=== PATIENT | female | born 1970 | race Caucasian/White ===

== ENCOUNTER 2018-12-27 14:19 | Inpatient (IN) | payer SELFPAY ==
--- NOTE | 2018-12-27 14:54 | CT ---
CT BRAIN WITHOUT CONTRAST: HISTORY: Level I stroke. Blurred vision. Seizure. Left-sided facial droop. FINDINGS: There is a focal area of decreased attenuation in the right frontal lobe. No evidence of hemorrhage, midline shift or abnormal extraaxial fluid collection is seen. The ventricular size is appropriate an d the basilar cisterns are patent. The bony calvarium is intact. The visualized paranasal sinuses and mastoid air cells are well aerated. IMPRESSION: Focal hypodensity in the right frontal lobe. This likely represents a mass, less likely infarct. Furt her evaluation with a contrast enhanced MRI is recommended. Discussed over the telephone with ER physician, Dr. Trent, at 2:36 p.m. CODE CR POS: OFF
[2018-12-27 14:57] LABS: #Basophils 0.1 thou/uL (0.0-0.2); #Eosinphils 0.1 thou/uL (0.0-0.7); #Monocytes 0.7 thou/uL (0.11-0.59); #Neutrophils 6.6 thou/uL (1.40-6.50); %Basophils 0.6 % (0.0-1.0); %Lymphocytes 21.2 % (21.0-51.0); %Monocytes 6.9 % (0.0-10.0); %Neutrophils 70.3 % (42.0-75.0); Hemoglobin 13.2 g/dL (12.0-16.0); Mean Corpuscular HGB CONC 33.6 g/dL (32.0-36.0); Mean Corpuscular Hemoglobin 31.8 pg (27.0-31.0); Mean Corpuscular Volume 94.5 fL (78.0-98.0); Platelet Count 315 thou/uL (130-400); RBC Distribution Width 11.3 % (11.5-14.5); Red Blood Cell (RBC) Count 4.14 mill/uL (4.20-5.40); White Blood Cell (WBC) Count 9.4 thou/uL (4.8-10.8)
[2018-12-27] MEDS ORDERED: Dexamethasone 10 MG/ML VIAL ONE (15:02)
[2018-12-27] MEDS ORDERED: levETIRAcetam 500 MG/100 ML PREMIX BAG ONE (15:02)
[2018-12-27 15:03] LABS: PTT 27.6 SEC (22.9-36.1); Prothrombin Time 12.6 SEC (12.0-14.7)
[2018-12-27 15:04] LABS: INR-International Normal Ratio 0.9
[2018-12-27] MEDS ORDERED: levETIRAcetam In NaCl (Iso-Os) 1,000 MG in Premix Bag 1 BAG IVPB SCH (15:15)
[2018-12-27 15:18] LABS: ALT (SGPT) 11 U/L (8-55); AST (SGOT) 12 U/L (5-34); Albumin 4.5 g/dL (3.5-5.0); Alkaline Phosphatase 57 U/L (40-110); Anion Gap 14 mmol/L (10-20); BUN (Urea Nitrogen) 13 mg/dL (7.0-18.7); Bilirubin, Total 0.5 mg/dL (0.2-1.2); CK (CPK) 57 U/L (29-168); Calc. Creatinine Clearance 0 mL/min (70-130); Calcium 9.9 mg/dL (7.8-10.44); Carbon Dioxide 26 mmol/L (22-29); Chloride 103 mmol/L (98-107); Estimated GFR-MDRD 81; Globulin 2.7 g/dL (2.4-3.5); Glucose 101 mg/dL (70-105); Potassium 3.9 mmol/L (3.5-5.1); Protein, Total 7.2 g/dL (6.0-8.3); Sodium 139 mmol/L (136-145)
[2018-12-27] MEDS ORDERED: Ondansetron ODT 4 MG TAB PO PRN (15:46)
[2018-12-27] MEDS ORDERED: Lorazepam 2 MG/ML VIAL SLOW IVP PRN (15:46)
[2018-12-27] MEDS ORDERED: Zolpidem Tartrate 5 MG TAB PO PRN (15:46)
[2018-12-27] MEDS ORDERED: HYDROcodone/Acetaminophen 5/325 mg Tablet PO PRN (15:46)
--- NOTE | 2018-12-27 16:45 | MRI ---
BRAIN MRI WITH AND WITHOUT CONTRAST: HISTORY: Seizure-like activity this morning. Patient hit head on desk. COMPARISON: None. CORRELATION: Noncontrast head CT 12/27/2018. FINDINGS: Calvarium has a normal T1 marrow signal intensity. Midline brain parenchymal structures are unremarka ble. No evidence of hemorrhage on the axial gradient echo sequence. There is a T1 hypointense, mixed T2 and FLAIR hyperintense lesion involving the right frontal cortex extending into the subcortical and deep white matter. There is also evidence of FLAIR and T2 hyperintensity along the right nair radiata and right centrum semiovale. There is associated sulcal effacement. No significant mass effect or midline shift. This lesion measures 4.2 cm anterior posterior by 2.9 cm mediolateral by 3.6 cm cranial caudal. This lesion is intra-axial. There is no ev idence of associated enhancement or restricted diffusion. A low-grade neoplasm/cystic mass is favored. Absence of enhancement and restricted diffusion decreased the possibility of a high-grade ne oplasm, infarct and abscess. No additional significant T2 or FLAIR white matter hyperintensities. The left cerebrum demonstrates p reservation of cortical paiz-white matter differentiation. Central arterial flow is maintained. No restricted diffusion. Mild mucosal disease of paranasal sinuses. Adequate mastoid air cell aeration. No pathologic enhancement the brain parenchyma. In the right extra-axial space, near the vertex there is a extra-axial enhancing focus adjacent to th e right parietal lobe measuring 0.7 x 0.8 x 0.6 cm. A small meningioma is favored. No significant changes of the adjacent brain parenchyma. IMPRESSION: Abnormal signal intensity involving the right frontal lobe secondary to an intra-axial process. There is mass effect and sulcal effacement of the right frontal lobe. No significant midline shift or herniation. Absent restricted diffusion. Absent enhancement. Low-grade neoplasm/cystic mass is a cons ideration. High-grade neoplasm, abscess or infarct are less favored given the absence of restricted diffusion and enhancement. Consider neurosurgical consultation. NICK T
--- NOTE | 2018-12-27 16:47 | HP ---
PRIMARY CARE PHYSICIAN: No PCP. HISTORY OF PRESENT ILLNESS: Referred to the [facility] by [facility]. 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 She was talking on the phone, had a student beside her. She suddenly developed pressure in her head, tingling sensation on her left side. Her vision went out. She was unable to talk. She was shaking on the left side. She denies any loss of consciousness. She says it lasted 5 to 10 minutes and she only had a minute or two postictal. Though she was awake and alert. No loss of urine or feces. PAST MEDICAL HISTORY: None. MEDICATIONS: None. ALLERGIES: NONE. PAST SURGICAL HISTORY: None. FAMILY HISTORY: Seizures none. Father had mini strokes. Mother alive and well and at bedside by the way. SOCIAL HISTORY: x20 years. Full code status. Mother, who is at bedside, is a next of kin. She smoked for many years, but quit 1 year ago. She drinks no alcohol. REVIEW OF SYSTEMS: GENERAL: She has had a couple of mild headaches for the past 2 weeks. They were unusual, but did not require medications. No dizziness or fainting. EYES: No double vision, blurred vision, or flashing lights. EAR, NOSE, AND THROAT: No ear pain or drainage. No nasal bleeding. No trouble swallowing. CARDIAC: No pressure, chest pain, orthopnea, or paroxysmal nocturnal dyspnea. RESPIRATIONS: No cough, wheezing, or asthma. GASTROINTESTINAL: No nausea, vomiting, diarrhea, constipation, or abdominal pain. GENITOURINARY: No hematuria or dysuria. MUSCULOSKELETAL: She swells occasionally in her legs, nothing of note. She has no pain in her muscles or joints. NEUROLOGIC: No history of previous psychiatric disease. She does feel subjectively numb in her left foot. PSYCHIATRIC: No history of anxiety or depression. SKIN: No bruising, bleeding, or rash. HEME/LYMPH: No tender or swollen lymph nodes in the axilla, inguinal, or cervical area. PHYSICAL EXAMINATION: GENERAL: The patient is alert, awake, pleasant, cooperative, oriented. VITAL SIGNS: Blood pressure 144/93, pulse 93, respirations 14, temperature 98.4. HEAD, EYES, EARS, NOSE, AND THROAT: Reveals pupils are equal, round, and reactive to light. Extraocular movements intact. Sclerae are white. Tympanic membranes are clear. Nose is clear. Oral mucous membranes are wet. Dental hygiene is good. Tongue protrudes midline. NECK: No jugular venous distention, adenopathy, or thyromegaly. CHEST: Clear to auscultation and percussion. HEART: Regular rate and rhythm. First and second heart sounds are clear. No murmurs or gallops. ABDOMEN: Soft. Bowel sounds are normal. No hepatosplenomegaly. No mass. No rebound. No bruits. EXTREMITIES: No cyanosis, clubbing, or edema. PULSES: Carotid, radial, femoral, and dorsalis pedis pulses full and symmetric. SKIN: Warm and dry without bruises or rashes. HEME/LYMPH: No tender or swollen lymph nodes in the axilla, inguinal, or cervical area. NEUROLOGIC: Cranial nerves 2 through 12 are intact. Deep tendon reflexes, symmetric. Toes downgoing. Strength symmetric. There is subjective numbness in the left foot compared to the right. STUDIES: Brain CT reviewed by me; hypodensity in the right frontoparietal area with a question of midline shift. LABORATORY DATA: Comprehensive metabolic profile normal. CBCs unremarkable. INR 0.9. ADMITTING DIAGNOSES: 1. Acute onset of focal left-sided seizure without loss of consciousness. 2. Right frontoparietal brain mass. PLAN: The patient in process to be loaded with 1 g of IV Keppra. She will be given IV Keppra 500 mg b.i.d. after that. She has been given 10 mg of Decadron in the emergency room. She will be given 4 hours after that. She will be moved to the Stroke Unit on fall and seizure precautions. Dr. Suraj Krishnan, Neurosurgery has been consulted and will see the patient. A chest x-ray has been ordered and EKG has been ordered. We will review when available. Job ID: [id number]
--- NOTE | 2018-12-27 18:30 | RAD ---
XR Chest Pa Lat STANDARD History: Seizure Comparison: None Findings: Lungs are clear. No pneumothorax or effusion. Cardiac silhouette and mediastinal contours a re within normal limits. No acute osseous abnormality. Low-grade calcific tendinosis of the right rotator cuff. Impression: No acute intrathoracic abnormality.
[2018-12-27 18:52] VITALS: BMI 31.1
[2018-12-27] MEDS: Dexamethasone 4 mg/ml Vial SLOW IVP SCH ×2 (20:04→21:32)
[2018-12-27] MEDS: Famotidine/PF 20 mg/2ml Vial SLOW IVP SCH (21:32)
--- NOTE | 2018-12-27 22:58 | CON ---
DATE OF CONSULTATION: 12/27/2018 HISTORY OF PRESENT ILLNESS: The patient is a 48-year-old otherwise healthy female who takes no medications, who presented to the emergency department per EMS after suspected seizure episode while at work. 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 She notified a student beside her, who contacted the principal who called EMS for further evaluation and management. The patient had no LOC or no tonoclonic activity. She reports this lasted approximately 10 minutes before resolving. She is now back to her baseline and has no complaints at this time. She also reports over the last few months, she has had mild headaches, which she felt were due to allergies. She was evaluated with a noncontrast CT on arrival which is notable for a right frontal hypodense lesion. This was evaluated further with MRI of the brain with and without contrast which confirmed a right frontal hypodense lesion which is approximately 4.2 x 2.9 x 3.6 cm. It is not contrast-enhancing. There is minimal vasogenic edema noted. There is mild mass effect. The patient denies any prior history of cancer or family history of cancers. She does not smoke. However, she was a previous smoker years ago. Her GCS is 15. She has remained neurologically intact without additional seizure-like activity during her ER course. In the ER, she was treated with 10 mg of IV Decadron as well as 1 g of IV Keppra. She was admitted by the hospitalist for further evaluation and workup of this new onset mass with Neurosurgical and Neurology consults. PAST MEDICAL HISTORY: Reports she is otherwise healthy. Denies any other medical problems and does not take any medications. ALLERGIES: SHE HAS NO KNOWN DRUG ALLERGIES. PAST SURGICAL HISTORY: She has no prior surgeries. FAMILY HISTORY: Notable for CVA in her father. No other notable family history. SOCIAL HISTORY: She does not currently smoke, but is a previous smoker, quit approximately 1 year ago. She does not drink alcohol or use any drugs. REVIEW OF SYSTEMS: Per HPI. PHYSICAL EXAMINATION: CONSTITUTIONAL: The patient is awake, alert, in no acute distress. Interactive. GCS 15. HEENT: Head, normocephalic and atraumatic. Eyes, PERRLA. Extraocular movements intact. ENT, oral mucosa is pink, intact, and moist. The patient has normal voice. NECK: Nontender to palpation. Free active range of motion. No meningismus or nuchal rigidity. CARDIAC: Regular rate and rhythm. PULMONARY: Symmetric chest expansion. No evidence of dyspnea. MUSCULOSKELETAL: Free active range of motion of all extremities. Symmetric pulses. NEUROLOGIC: Normal cranial nerve exam. A and O x4. No focal neurologic deficits are appreciated. ASSESSMENT AND PLAN: This is an otherwise healthy 48-year-old female with new onset seizure-like activity with a brain MRI, which is notable for newly found right frontal hypodense mass. She has been admitted by the Hospitalist Service. We are recommending continued IV Decadron 4 to 6 with H2 derek for gastrointestinal protection. We will also recommend continued Keppra 500 mg IV b.i.d. and will also await any additional Neurology recommendations for seizure management. With regard to the new mass on MRI, we will discuss this further with Dr. Krishnan, who also reviewed me with the patient. We will further formulate plan of care at that time. At this point, I will give her regular diet. I do not anticipate any acute neurosurgical intervention in the next day. However, she may require surgical intervention and planning in the future. Discussed this plan with Dr. Krishnan, who is in agreement. We will follow closely. Job ID: [id number]
[2018-12-28] MEDS: Dexamethasone 4 mg/ml Vial SLOW IVP SCH ×3 (00:47→08:49)
[2018-12-28] MEDS ORDERED: Melatonin 3 MG TAB PO PRN (01:22)
[2018-12-28] MEDS: Acetaminophen 325 MG TAB PO PRN ×2 (04:43→11:45)
[2018-12-28 05:06] LABS: #Monocytes 0.1 thou/uL (0.11-0.59); #Neutrophils 8.6 thou/uL (1.40-6.50); %Basophils 0.1 % (0.0-1.0); %Eosinophils 0.1 % (0.0-10.0); %Monocytes 0.6 % (0.0-10.0); %Neutrophils 89.2 % (42.0-75.0); Mean Corpuscular HGB CONC 33.5 g/dL (32.0-36.0); Mean Corpuscular Hemoglobin 31.6 pg (27.0-31.0); Mean Corpuscular Volume 94.2 fL (78.0-98.0); Mean Platelet Volume 7.1 fL (7.4-10.4); Platelet Count 345 thou/uL (130-400); RBC Distribution Width 11.4 % (11.5-14.5); White Blood Cell (WBC) Count 9.6 thou/uL (4.8-10.8)
[2018-12-28 05:28] LABS: Anion Gap 16 mmol/L (10-20); BUN (Urea Nitrogen) 17 mg/dL (7.0-18.7); Calc. Creatinine Clearance 85 mL/min (70-130); Calcium 9.7 mg/dL (7.8-10.44); Carbon Dioxide 19 mmol/L (22-29); Chloride 107 mmol/L (98-107); Estimated GFR-MDRD 60; Glucose 228 mg/dL (70-105); Potassium 3.8 mmol/L (3.5-5.1); Sodium 138 mmol/L (136-145)
--- NOTE | 2018-12-28 07:19 | PDOC.HOSPP ---
- Subjective Encounter Date: 12/28/18 Encounter Time: 07:17 Subjective: alert, oriented, no further seizure activity - Objective Vital Signs & Weight: Vital Signs (12 hours) Temp Pulse Resp BP Pulse Ox 12/28/18 04:38 97.9 F 106 H 20 119/81 95 12/28/18 00:51 97.4 F L 111 H 20 105/77 95 Weight Weight 170 lb 9.6 oz Result Diagrams: 12/28/18 04:58 12/28/18 04:58 Additional Labs: Accuchecks 12/27/18 14:48 POC Glucose 92 Hospitalist ROS - Medication Medications: Active Medications Generic Name Dose Route Start Last Admin Trade Name Freq PRN Reason Stop Dose Admin Acetaminophen 650 mg 12/27/18 15:46 12/28/18 04:43 Tylenol PO 650 mg Q4H PRN Administration Headache/Fever/Mild Pain (1-3) Dexamethasone 4 mg 12/27/18 17:00 12/28/18 04:32 Decadron SLOW IVP 4 mg Q4HR MARIANA Administration Famotidine 20 mg 12/27/18 21:00 12/27/18 21:32 Pepcid SLOW IVP 20 mg Q12HR MARIANA Administration Levetiracetam 500 mg/ Device 100 mls @ 200 mls/hr 12/27/18 21:00 12/27/18 21: 32 IVPB 100 mls BID MARIANA Administration Melatonin 3 mg 12/28/18 01:22 12/28/18 01:33 Melatonin PO 3 mg HS PRN Administration Insomnia - Exam General Appearance: awake alert Neck: no JVD Heart: RRR, no murmur Respiratory: CTAB Gastrointestinal: soft, normal bowel sounds Extremities: no edema Neurological: no focal deficits Hosp A/P (1) Seizure Code(s): R56.9 - UNSPECIFIED CONVULSIONS Status: Acute (2) Brain mass Code(s): G93.89 - OTHER SPECIFIED DISORDERS OF BRAIN Status: Acute - Plan cont iv decadron cont iv keppra await NS recommendation re surgery
[2018-12-28] MEDS ORDERED: FLU VACC QS2019-20(6MOS UP)/PF 60 MCG/0.5 ML SYRINGE IM ONE (09:00)
[2018-12-28] MEDS: Famotidine/PF 20 mg/2ml Vial SLOW IVP SCH (10:38)
--- NOTE | 2018-12-28 11:07 | DIS ---
DATE OF ADMISSION: 12/27/2018 DATE OF DISCHARGE: 12/28/2018 PRIMARY CARE PHYSICIAN: No PCP. DISPOSITION: Discharged home. FINAL DIAGNOSES: Acute onset focal motor seizures on the left and right-sided brain mass. DISCHARGE MEDICINES: Keppra 500 mg p.o. b.i.d. ALLERGIES: NONE. PENDING AT TIME OF DISCHARGE: Follow up with Dr. Krishnan for potential neurosurgery. CODE STATUS: Full. DIET: As tolerated. HOSPITAL COURSE: The patient had a focal left-sided seizure with speech difficulty, but no loss of consciousness, and there was true postictal period. She was brought to the emergency room, found to have a right-sided frontal mass approximately 4 cm. She was given Decadron and loaded with IV Keppra 1000 mg. Started on 500 mg IV q.12 and started on Decadron 4 mg q.4, seen by Neurosurgery, who today recommends discharge. Continue Keppra p.o. 500 mg p.o. b.i.d. Discontinue Decadron. To be followed up within one week with Dr. Krishnan to schedule outpatient surgery. The patient is comfortable with this. Questions answered. Prescriptions written. Job ID: [id number]
[2018-12-28 11:46] VITALS: BP 123/79; TEMP 98.3
--- NOTE | 2018-12-28 14:26 | PRG ---
DATE OF SERVICE: 12/28/2018 SUBJECTIVE: The patient is seen and examined. I agree with Lesa Ramírez's evaluation, 12/27/2018. The patient is a 48-year-old woman without past medical history, who presented with the single seizure. She is neurologically intact. CT and MRI scan revealed a right frontal lesion. There is minimal mass effect. It appears to be intractable. There is no meaningful enhancement. 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 It does seems to be a small parietal vertex enhancing lesion that is likely to be a meningioma. IMPRESSION AND PLAN: New seizure and right frontal tumor, presumably low-grade glioma. Ultimately, this will require surgery likely via open resection. I discussed this in detail with the patient. I recommend she will be discharged on Keppra. Decadron can be discontinued. We will arrange for outpatient followup and Surgery to follow. Job ID: [id number]
--- NOTE | 2018-12-29 10:16 | PQF ---
[employer] Utility Bill Collector Crystal Reports Winform ViewerBOYETTE HOLGER DONG VELASQUEZ MD [phone] [id number] CLINICAL DOCUMENTATION CLARIFICATION FORM: POST DISCHARGE Addendum to original discharge summary date: ____ Late entry note date: __ DATE:12/29/2018 ATTN:DONG VELASQUEZ MD Please exercise your independent, professional judgment in responding to the clarification form. Clinical indicators are provided on the bottom of this form for your review Please check appropriate box(s) to clarify if the following diagnosis has been ruled in or ruled out:Glioma [ ] Ruled in diagnosis [ ] Continue to treat [ ] Resolved [ ] Ruled out diagnosis [ ] Cannot rule out diagnosis [ ] Other diagnosis [ x ] Unable to determine no biopsy done, cannot determine cell type without tissue In addition, please specify: Present on Admission (POA): [ ] Yes [ ] No [ ] Unable to determine For continuity of documentation, please document condition throughout progress notes and discharge summary. Thank You. CLINICAL INDICATORS - SIGNS / SYMPTOMS / LABS -Right frontoparietal brain mass-H&P,12/27/2018,Dong Velasquez MD -She was talking on the phone,She suddenly developed pressure in her head, tingling sensation on her left side--H&P,12/27/2018,Dong Velasquez MD -Her vision went out--H&P,12/27/2018,Dong Velasquez MD -Right frontal hypodense mass-Consult,12/28,Lesa Ramírez PA-C -New seizure and right frontal tumor,Presumably low-grade glioma-PN,12/28, Suraj Krishnan MD RISK FACTORS -Acute onset focal motor seizures-Discharge summary,12/28,Dong Velasquez MD She smoked for many years,but Quit 1 year ago-H&P,12/27/2018,Dong Velasquez MD TREATMENTS CT brain-H&P,12/27/2018,Dong Velasquez MD Decadron 10 mg -H&P,12/27/2018,Dong Velasquez MD MRI brain-12/27/2018 We will arrange for outpatient followup and surgery to follow-PN,12/28,Suraj Krishnan MD [employer] Utility Bill Collector Crystal Reports Winform Viewer (This form is maintained as a part of the permanent medical record) 2014 [employer]. All Rights Reserved Riri [email or web address] [phone] MTDD
--- NOTE | 2018-12-31 23:23 | EKG ---
Test Reason : Blood Pressure : / mmHG Vent. Rate : 095 BPM Atrial Rate : 095 BPM P-R Int : 128 ms QRS Dur : 064 ms QT Int : 342 ms P-R-T Axes : -02 -03 040 degrees QTc Int : 429 ms Normal sinus rhythm Low voltage QRS Cannot rule out Anterior infarct , age undetermined Abnormal ECG Confirmed by EARLINE CALVERT DO ([id number]), science editor LOUIS ROMAN ([id number]) on 12/31/2018 11:23:02 PM Referred By: Confirmed By:EARLINE CALVERT DO
== END 2018-12-28 12:35 | disposition home or self-care (01) | DRG 101 ==
LOC: ERS 14:19 → ERHOLD 15:39 → 2SE 18:41
PROVIDERS: ADMIT Internal Medicine; ATTEND Internal Medicine
DX: R56.9 Unspecified convulsions (principal); G93.9 Disorder of brain, unspecified; R40.2413 Glasgow coma scale score 13-15, at hospital admission; Z87.891 Personal history of nicotine dependence
CPT/HCPCS: 36415; 36416; 70450; 70553; 71046; 80048; 80053; 82550; 84484; 85025; 85610; 85730; 93005; 96365; 96375; J1100; J1953; S0028

== ENCOUNTER 2019-01-10 14:49 | Outpatient (CLI) | payer OTHER ==
[2019-01-10 17:10] LABS: Hemoglobin 13.5 g/dL (12.0-16.0); Mean Corpuscular Hemoglobin 31.6 pg (27.0-31.0); Mean Corpuscular Volume 93.1 fL (78.0-98.0); Mean Platelet Volume 7.7 fL (7.4-10.4); Platelet Count 322 thou/uL (130-400); RBC Distribution Width 11.2 % (11.5-14.5); Red Blood Cell (RBC) Count 4.27 mill/uL (4.20-5.40); White Blood Cell (WBC) Count 12.6 thou/uL (4.8-10.8)
[2019-01-10 17:18] LABS: INR-International Normal Ratio 0.9; PTT 27.8 SEC (22.9-36.1); Prothrombin Time 12.4 SEC (12.0-14.7)
== END 2019-01-10 14:50 | disposition home or self-care (01) ==
LOC: LABBT 14:49
PROVIDERS: ATTEND Neurological Surgery
DX: Z01.812 Encounter for preprocedural laboratory examination (principal); C71.1 Malignant neoplasm of frontal lobe
CPT/HCPCS: 85027; 85610; 85730

== ENCOUNTER 2019-01-10 15:30 | Inpatient (IN) | payer OTHER ==
--- NOTE | 2019-01-10 19:10 | HP ---
HISTORY OF PRESENT ILLNESS: Ms. Martinez is a 48-year-old female referred by Dr. Krishnan for evaluation of what appears to be a low grade glioma. She is a former smoker and relatively good health, who has new onset focal motor seizures, speech arrest while at work earlier this week. She was seen at [facility] with MR images suggesting right frontal operculum on that side. Keppra was started. There is no headache. No face twitching. No face weakness. No arm weakness. No change in cognition. REVIEW OF SYSTEMS: A 10-point review of systems has been completed and is negative other than stated in the above HPI. PAST MEDICAL HISTORY: No past medical history. PAST SURGICAL HISTORY: No surgical history. ALLERGIES: NO KNOWN DRUG ALLERGIES. MEDICATIONS: Keppra. PHYSICAL EXAMINATION: CONSTITUTIONAL: The patient is well appearing, well nourished, alert. RESPIRATIONS: Normal work of breathing on room air. NEUROLOGIC: Cranial nerves intact. Cerebellar exam, there is no truncal ataxia. Gait and station are normal. Motor exam, no drift. Very subtle left facial nasolabial fold flattening. Sensory exam, no neglect. IMAGING STUDIES: 90% circumscribed lesion in the inferior right frontal lobe abutting the sylvian fissure and operculum. ASSESSMENT: Malignant neoplasm, frontal lobe. Dr. Mora has offered surgery. He will do a stereotactic brain lab tumor resection. The patient states that she understands her risks and willing to proceed. Job ID: [id number]
[2019-01-13] MEDS ORDERED: Lidocaine 0.5%/Epinephrine 1:200,000 50 ml Vial ONE (06:11)
[2019-01-13] MEDS ORDERED: Bacitracin Zinc Ointment 30 gm TUBE ONE (06:11)
[2019-01-13] MEDS ORDERED: Thrombin 5000 UNITS/5 ML VIAL ONE (06:11)
[2019-01-13] MEDS ORDERED: Sodium Chloride 0.9% 30 ML ONE (06:11)
[2019-01-13] MEDS ORDERED: Lidocaine 2% Jelly 5 ML TUBE ONE (06:18)
[2019-01-13] MEDS ORDERED: Fentanyl 100 MCG/2 ML VIAL ONE (06:18)
[2019-01-13] MEDS ORDERED: Midazolam HCl 2 mg/2 ml Vial ONE (06:52)
[2019-01-13] MEDS ORDERED: Rocuronium Bromide 50 MG/5 ML VIAL ONE (09:28)
[2019-01-13] MEDS ORDERED: Promethazine HCl 25 MG/ML VIAL IM PRN ×2 (12:29→12:34)
[2019-01-13] MEDS ORDERED: Ondansetron HCl/PF 4 MG/2 ML Vial IVP PRN (12:29)
[2019-01-13] MEDS ORDERED: Promethazine HCl 25 MG/ML VIAL SLOW IVP PRN (12:29)
[2019-01-13] MEDS ORDERED: diphenhydrAMINE 50 MG/ML VIAL IVP PRN (12:34)
[2019-01-13] MEDS ORDERED: Cepastat Lozenges 1 LOZ PO PRN (12:34)
[2019-01-13] MEDS ORDERED: Labetalol HCl 100 MG/20 ML VIAL SLOW IVP PRN (12:34)
[2019-01-13] MEDS ORDERED: hydrALAZINE 20 MG/ML VIAL SLOW IVP PRN (12:34)
[2019-01-13] MEDS ORDERED: Promethazine HCl 12.5 MG SUPP PR PRN (12:34)
[2019-01-13] MEDS ORDERED: Morphine 2 MG/ML SYRINGE SLOW IVP PRN (12:34)
[2019-01-13] MEDS ORDERED: Promethazine 25 MG TAB PO PRN (12:34)
[2019-01-13] MEDS ORDERED: Fleet Enema 133 ML BOT PR PRN (12:34)
[2019-01-13 14:22] VITALS: BMI 29.9
[2019-01-13] MEDS: CEFAZOLIN 2 GM in Premix Bag 1 BAG IVPB SCH ×2 (14:30→21:44)
[2019-01-13] MEDS: Sodium Chloride 0.9% 1,000 ML IV SCH (14:32)
[2019-01-13] MEDS: Ondansetron PF 4 MG/2 ML Vial IVP PRN (16:17)
--- NOTE | 2019-01-13 16:39 | OP ---
DATE OF PROCEDURE: 01/13/2019 RITUAL CIRCUMCISER: None. PREOPERATIVE INDICATION: Make diagnosis, prevent neurological deterioration. 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 OPERATIVE PROCEDURES: Right frontotemporal craniotomy for resection of right frontal tumor, BrainLAB stereotactic volumetric intracranial procedure, and operating microscope. PREOPERATIVE MEDICATIONS: Ancef 2 g IV. DRAIN NUMBER: Zero. DRAIN TYPE: None. DESCRIPTION OF PROCEDURE: The patient was brought to the operating room. General endotracheal anesthesia was induced. The patient was positioned supine on the operating table. Head was turned to the left and mobilized with [place]rix pin head of design. Using the BrainLAB protocol, preoperative MRI scan, the BrainLAB mapping system, and surface registration techniques, we created three-dimensional stereotactic space registered at the patient's head. We confirmed the registration when touching instruments to the surface landmarks and the correlation was excellent. We planned a curvilinear incision starting at the root of the zygoma and curving posteriorly over the parietal bone and then anteriorly towards the midline. Under a planned incision, we infused local anesthetic. The scalp was sterilely prepped and draped. We opened with a 10 blade knife. We controlled bleeding with bipolar and monopolar cautery. We folded scalp flap forward at the subperiosteal level and held it in place under fishhooks. We placed a david hole at the root of the zygoma of the frontal keyhole at the superior temporal line on the posterior frontal bone. We elevated the dura off the undersurface of the cranial vault with a [place] 3 dissector and then connected our david holes with a router bit and a footplate. We folded the scalp flap out of the field. We irrigated with bacitracin irrigation. The dura was completely intact. We controlled epidural bleeding with gentle bipolar cautery. We opened the dura in a curvilinear fashion centered at the Pterion. We folded the dura under fishhooks anteriorly. Using our navigation wand, we mapped out the surface presentation of the tumor and thankfully, the difference between tumor and cantwell brain was nicely visualized. The tumor itself had expanded with gyri involved significantly and discolored them. The surface of the tumor was fairly bright white, whereas the surrounding brain was a normal lombardi color. We brought the operating microscope into the field. Under microscopic magnification using microsurgical techniques, we carefully coagulated the nancy around the borders of the tumor. There was one arterial structure emanating from the sylvian fissure traversing the surface of the tumor having coagulated nancy on either side of this. Using sharp scissors, we skeletonized our tumor as well as the traversing vessels. The vessels were kept intact throughout the case. Once we had opened the nancy, we used gentle suction and bipolar cautery to generate a plane around the tumor and at the tumor brain interface, we dissected steadily and carefully. This carried us down bordering sulci. We states a peal. We preserved traversing vasculature. Once we were deeper than the majority of the tumor, brought the navigation wand into the field. This confirmed that we had indeed circumscribed tumor and depth of dissection needed only a few more millimeters before we were at the bottom. Once again with suction cautery, we dissected deeper and then connected our circumferential dissection at the base of the tumor listed now. This was done in multiple fragments between surface vasculature, which does not rotate the vessels, stretch or lacerated them. A small fragment of tumor was sent for frozen section. More fragments were placed in formalin for permanent histopathology. We irrigated the resection cavity. Hemostasis was excellent. We closed the dura in an interrupted fashion and removed the operative microscope. We reattached the skull with titanium plates and screws. We filled the operative field with irrigation. We closed the scalp in anatomical layers. We applied a sterile head wrap. [place] pin headholder was removed from the patient's head and the patient was transferred to the transport cart. This was a clean case, no contamination. Job ID: [id number]
[2019-01-13] MEDS: Morphine 4 MG/ML VIAL SLOW IVP PRN ×2 (16:55→21:45)
[2019-01-13] MEDS ORDERED: Dexamethasone 4 mg/ml Vial ONE (17:15)
[2019-01-13] MEDS ORDERED: Dexamethasone 1 MG TAB PO SCH (18:00)
[2019-01-13] MEDS ORDERED: Dexamethasone 4 mg/ml Vial SLOW IVP SCH (21:00)
[2019-01-13] MEDS ORDERED: Famotidine/PF 20 mg/2ml Vial SLOW IVP SCH (21:00)
[2019-01-13] MEDS: Pantoprazole 40 MG VIAL IVP SCH (21:44)
[2019-01-14] MEDS ORDERED: hydrALAZINE 20 MG/ML VIAL SLOW IVP PRN (01:45)
[2019-01-14] MEDS ORDERED: Labetalol HCl 100 MG/20 ML VIAL SLOW IVP PRN (01:45)
[2019-01-14] MEDS: Sodium Chloride 0.9% 1,000 ML IV SCH ×2 (02:02→15:57)
[2019-01-14] MEDS: Morphine 4 MG/ML VIAL SLOW IVP PRN ×2 (02:03→08:47)
[2019-01-14] MEDS: CEFAZOLIN 2 GM in Premix Bag 1 BAG IVPB SCH (06:01)
[2019-01-14] MEDS: Ondansetron PF 4 MG/2 ML Vial IVP PRN (08:00)
[2019-01-14] MEDS: Pantoprazole 40 MG VIAL IVP SCH ×2 (08:03→21:03)
--- NOTE | 2019-01-14 08:34 | PRG ---
DATE OF SERVICE: 01/14/2019 SUBJECTIVE: The patient is a 48-year-old female, who is postoperative day #1, status post right-sided craniotomy for a low-grade glioma. She has been monitored in CCU overnight. Yesterday, she was complaining of some soreness to the throat; therefore, her medications were switched to IV and she was ordered Cepacol lozenges. She reports this seems to be improving in time. She is tolerating some p.o. She is complaining some numbness and tingling in the tips of the left hand and the left foot. She appears to be mildly weak on this side, 4+ out of 5. Her vitals have been stable, and she has required no p.r.n. blood pressure medication since. She has been afebrile overnight. OBJECTIVE: GENERAL: On exam, this morning the patient is sitting up comfortably in the chair. NEUROLOGIC: She is awake, alert, and oriented x4. She appears slightly weak 4+ out of 5 on the left side. Her incision is clean, dry, and intact. The patient appears to be progressing nicely from her right-sided craniotomy. We will plan to remove her Flores catheter and transferred to the floor. Once her throat is feeling a bit better, I will transition her medications to p.o., but we will leave IV for now as well as continue her IV fluids. Job ID: [id number]
[2019-01-14] MEDS: Dexamethasone 4 mg/ml Vial SLOW IVP SCH ×2 (08:44→21:04)
[2019-01-14] MEDS: HYDROcodone/Acetaminophen 7.5/325 mg Tablet PO PRN ×3 (11:38→21:16)
[2019-01-14] MEDS: Docusate 100 MG CAP PO PRN (17:37)
[2019-01-15] MEDS: Dexamethasone 4 mg/ml Vial SLOW IVP SCH ×2 (09:06→21:41)
[2019-01-15] MEDS: Pantoprazole 40 MG VIAL IVP SCH ×2 (09:07→21:51)
[2019-01-15] MEDS: Sodium Chloride 0.9% 1,000 ML IV SCH ×2 (09:09→17:19)
[2019-01-15] MEDS: Docusate 100 MG CAP PO PRN ×2 (09:22→17:16)
[2019-01-15] MEDS: HYDROcodone/Acetaminophen 7.5/325 mg Tablet PO PRN ×3 (09:24→21:45)
--- NOTE | 2019-01-15 10:11 | PRG ---
DATE OF SERVICE: 01/15/2019 SUBJECTIVE: The patient is postoperative day #2. Yesterday, she was transitioned from the CCU to the med/surg floor. Her Flores was removed. Since that time, she reports she has been comfortable, and her pain has been tolerated well with p.o. medications. She is tolerating a regular diet, and she is voiding appropriately. She was able to work with Physical Therapy yesterday. OBJECTIVE: GENERAL: She is awake, comfortable, in no acute distress. EXTREMITIES: She has free active range of motion of all extremities, but does feel slightly weak on the left side, 4+/5 throughout. She does report some tingling still in the tips of fingers and along the foot. Her incision is clean, dry, and intact. ASSESSMENT AND PLAN: The patient appears to be doing well postoperatively on the floor. She would like to get a shower today and I feel that this is appropriate. I anticipate she will be able to transition to home in the next day or two. Job ID: [id number]
--- NOTE | 2019-01-16 06:24 | PRG ---
DATE OF SERVICE: 01/16/2019 I saw Nadia Martinez in her hospital room this morning. She is 2 days out from craniotomy for right frontal lobe tumor. She had a reasonably good weekend and participated in physical therapy. She is ready for discharge, however. the vitals Have been stable. The neurological exam is quite good. I do not see any pronator drift. The left thumb is working just as well as the right. There is mild, if any, facial asymmetry. Pathology is pending. We will arrange for discharge today. Ms. Martinez will continue on Keppra. We will give her Tylenol No.3 as needed for pain. We went over activity restrictions and wound care. She has a followup appointment on January 25. She will need to follow up with Oncology and Radiation Oncology as well. Job ID: [id number] MTDD
[2019-01-16] MEDS ORDERED: Acetaminophen/Codeine 30-300mg Tablet PO PRN ×2 (06:37)
[2019-01-16] MEDS ORDERED: Polyethylene Glycol 3350 17 GM Packet PO PRN (06:38)
[2019-01-16] MEDS: Sodium Chloride 0.9% 1,000 ML IV SCH (06:48)
[2019-01-16 08:02] VITALS: BP 132/86; TEMP 98.6
[2019-01-16] MEDS ORDERED: levETIRAcetam 500 MG TAB PO SCH (09:00)
--- NOTE | 2019-01-16 10:08 | PRG ---
DATE OF SERVICE: 01/14/2019 I am seeing Ms. Martinez in her hospital room. She is doing quite well and is eating lunch. She has significant right-sided periorbital swelling, which is typical. She has been ambulatory with good success. Continue Decadron taper. Anticipate dismissal in the next 1 to 2 days. Awaiting pathology. Job ID: [id number]
== END 2019-01-16 11:18 | disposition home or self-care (01) | DRG 27 ==
LOC: SURG A 01-13 05:37 → CCU 01-13 13:47 → SURG A 01-14 12:02
PROVIDERS: ADMIT Neurological Surgery; ATTEND Neurological Surgery
PROC: 00B00ZZ Excision of Brain, Open Approach (ICD-10-PCS; principal; 2019-01-13)
PROC: 2W30XYZ Immobilization of Head using Other Device (ICD-10-PCS; 2019-01-13)
DX: C71.1 Malignant neoplasm of frontal lobe (principal); Z87.891 Personal history of nicotine dependence; R56.9 Unspecified convulsions
CPT/HCPCS: 85027; 85610; 85730; C1713; C9113; J0690; J1100; J1953; J2001; J2250; J2270; J2405; J2550; J3010; J3490

== ENCOUNTER 2019-05-30 12:52 | Outpatient (CLI) | payer OTHER ==
--- NOTE | 2019-05-30 14:11 | MRI ---
MRI of thebrain: 05/30/2019 COMPARISON:02/09/2019 HISTORY:Reevaluate brain tumor TECHNIQUE: Multiplanar multisequence MR imaging of thebrain with and without contrast Findings:The diffusion weighted imaging demonstrates no evidence for acute infarction. There is evidence of prior right frontal craniotomy. There is a post surgical cavity lateral to the i nferior posterior aspect of the right frontal lobe with peripheral hemosiderin staining consistent with minimal residual blood products. This small postsurgical cavity measures up to 1.9 cm in AP dime nsion, not significantly changed when compared to the recent prior exam. Subjacent to the postoperative cavity is T2 and FLAIR hyperintensity involving the subcortical, deep, and periventricular white matter in the right frontal region. Measurement is limited secondary to the ill-defined nature of this abnormal signal. The abnormal T2 signal on the basis of intra-axial tu mor and/or vasogenic edema measures approximately 3.7 cm in greatest AP dimension and 3.4 cm in greatest transverse dimension, similar when compared to the prior examination performed 02/09/2019. T he area of white matter FLAIR hyperintensity is slightly more well-defined than on the 02/09/2019 exam. This area of signal abnormality is less conspicuous than on the 12/27/2018 exam. No midline shift or mass effect. No ventricular enlargement. The postcontrast imaging demonstrates dural enhancement within the right frontal region consistent wi th prior surgery/biopsy. No discrete intra-axial focus of abnormal enhancement noted. Arterial flow voids at the axial level of the skull base appear grossly unremarkable on the T2-weight ed imaging. As seen on prior imaging there is an extra-axial enhancing lesion posteriorly near the vertex on the right measuring 7 mm, likely on the basis of a stable meningioma. IMPRESSION:Relatively stable postsurgical change in the right frontal region. Residual T2 and FLAIR h yperintensity deep to the postsurgical site suggest grossly unchanged infiltrative tumor and/or vasogenic edema.
[2019-05-30] MEDS ORDERED: Magnevist 469MG/ML 20 ML VIAL ONE (14:39)
== END 2019-05-30 12:53 | disposition home or self-care (01) ==
LOC: TBSIIMAG 12:52
PROVIDERS: ATTEND Neurological Surgery
DX: D49.6 Neoplasm of unspecified behavior of brain (principal); R60.0 Localized edema; Z98.890 Other specified postprocedural states
CPT/HCPCS: 70553; A9579

== ENCOUNTER 2019-11-24 11:29 | Day surgery (SDC) | payer BC, SELFPAY ==
[2019-11-24] MEDS ORDERED: Acetaminophen 500 MG TAB PO SCH (12:00)
[2019-11-24] MEDS ORDERED: diphenhydrAMINE 25 MG CAP PO SCH (12:00)
[2019-11-24 14:31] VITALS: BP 96/66; TEMP 98.3
== END 2019-11-24 14:31 | disposition home or self-care (01) ==
LOC: ONC/OP 11:29
PROVIDERS: ATTEND Internal Medicine Hematology & Oncology
PROC: 30233R1 Transfusion of Nonautologous Platelets into Peripheral Vein, Percutaneous Approach (ICD-10-PCS; principal; 2019-11-24)
DX: D69.6 Thrombocytopenia, unspecified (principal); D64.9 Anemia, unspecified
CPT/HCPCS: 36415; 36430; 86850; 86900; 86901; P9035; Q0163

== ENCOUNTER 2020-01-03 12:26 | Outpatient (CLI) | payer BC ==
[~2020-01-03 12:26] MED LIST: Magnevist 469MG/ML 20 ML VIAL ONE
--- NOTE | 2020-01-03 14:02 | MRI ---
Exam: Brain MRI with and without contrast HISTORY: Malignant neoplasm of frontal lobe. Slurred speech. COMPARISON: 11/15/2019, 05/30/2019 FINDINGS: Gradient echo sequence: No evidence of acute hemorrhage. Stable hemosiderin deposition at the resecti on site. Calvarium: Stable postoperative changes involving the right calvarium. Midline brain parenchyma: Unremarkable Cerebrum:Stable post treatment change/surgical change involving the right temporal lobe. Redemonstrat ion of T2 and FLAIR hyperintensities involving the right cerebrum. The degree of T2 and FLAIR hyperintensity is slightly diminished. There are no new areas of T2 or FLAIR hyperintensity. With the exception of the surgical site, cortical paiz-white white matter differentiation is preserved. Ventricles: No evidence of hydrocephalus. Sinuses and mastoid air cells: Adequate aeration Diffusion: Central arterial flow is maintained. Absent restricted diffusion. Postcontrast images:There is stable enhancement involving the dura overlying the surgical site. There is no abnormal enhancement with regards to the brain parenchyma. Stable linear enhancement in the extra-axial space, the region of the surgical site is noted likely represents vasculature or scar for mation. Stable meningioma along the right parietal region. IMPRESSION: 1. Stable postoperative changes. 2. No evidence of new pathologic enhancement. 3. No evidence of restricted diffusion to suggest an acute infarct.
== END 2020-01-03 12:27 | disposition home or self-care (01) ==
LOC: MRI 12:26
PROVIDERS: ATTEND Internal Medicine Hematology & Oncology
DX: C71.1 Malignant neoplasm of frontal lobe (principal); R47.81 Slurred speech; Z98.890 Other specified postprocedural states
CPT/HCPCS: 70553; A9579

== ENCOUNTER 2020-02-09 09:31 | Day surgery (SDC) | payer BC ==
[2020-02-09] MEDS ORDERED: diphenhydrAMINE 25 MG CAP PO SCH (10:45)
[2020-02-09] MEDS ORDERED: Acetaminophen 500 MG TAB PO SCH (10:45)
[2020-02-09 13:31] VITALS: BP 110/71; TEMP 98.3
[2020-02-10] MEDS ORDERED: FLU VACC QS2020-21(6MOS UP)/PF 60 MCG/0.5 ML SYRINGE IM ONE (09:00)
== END 2020-02-09 13:32 | disposition home or self-care (01) ==
LOC: ONC/OP 09:31
PROVIDERS: ATTEND Internal Medicine Hematology & Oncology
PROC: 30233N1 Transfusion of Nonautologous Red Blood Cells into Peripheral Vein, Percutaneous Approach (ICD-10-PCS; principal; 2020-02-09)
DX: D64.9 Anemia, unspecified (principal); D69.6 Thrombocytopenia, unspecified
CPT/HCPCS: 36430; 86850; 86900; 86901; P9016; Q0163

== ENCOUNTER 2020-02-13 11:13 | Day surgery (SDC) | payer BC ==
[2020-02-13] MEDS ORDERED: Sodium Chloride 0.9% 20 ML ONE (11:53)
[2020-02-13] MEDS ORDERED: diphenhydrAMINE 25 MG CAP PO SCH (12:00)
[2020-02-13] MEDS ORDERED: Acetaminophen 500 MG TAB PO SCH (12:00)
[2020-02-13 14:10] VITALS: BP 91/54; TEMP 98.2
== END 2020-02-13 14:11 | disposition home or self-care (01) ==
LOC: ONC/OP 11:13
PROVIDERS: ATTEND Internal Medicine Hematology & Oncology
PROC: 30233R1 Transfusion of Nonautologous Platelets into Peripheral Vein, Percutaneous Approach (ICD-10-PCS; principal; 2020-02-13)
DX: D69.6 Thrombocytopenia, unspecified (principal); D64.9 Anemia, unspecified
CPT/HCPCS: 36430; 86850; 86900; 86901; P9035; Q0163

== ENCOUNTER 2020-04-12 12:07 | Inpatient (IN) | payer BC, OTHER ==
[2020-04-12 13:19] LABS: #Basophils 0.1 thou/uL (0.0-0.2); #Lymphocytes 0.3 thou/uL (1.20-3.40); #Monocytes 0.2 thou/uL (0.11-0.59); #Neutrophils 6.3 thou/uL (1.40-6.50); %Basophils 1.3 % (0.0-1.0); %Eosinophils 0.2 % (0.0-10.0); %Lymphocytes 4.6 % (21.0-51.0); %Monocytes 3.2 % (0.0-10.0); %Neutrophils 90.7 % (42.0-75.0); Hemoglobin 9.1 g/dL (12.0-16.0); Mean Corpuscular HGB CONC 33.2 g/dL (32.0-36.0); Mean Corpuscular Hemoglobin 33.5 pg (27.0-31.0); Mean Platelet Volume 11.9 fL (7.4-10.4); Platelet Count 81 thou/uL (130-400); RBC Distribution Width 14.9 % (11.5-14.5); Red Blood Cell (RBC) Count 2.72 mill/uL (4.20-5.40); White Blood Cell (WBC) Count 6.9 thou/uL (4.8-10.8)
[2020-04-12 13:32] LABS: BHCG - Serum Negative (NEGATIVE); Pregs Control Background? CLEAR/WHITE (CLR/WHITE); Pregs Control Bar Appear? YES (CONTROL BAR)
[2020-04-12 13:33] LABS: MDiff Complete? YES; Platelet Morphology Comment Appears Decreased; Polychromasia SLIGHT = 2-3 cells (100X) (0-2/hpf); Tear Drops SLIGHT = 2-5 cells (100X) (0-1/hpf)
--- NOTE | 2020-04-12 13:34 | RAD ---
Exam: Chest one view HISTORY:Weakness. Fall. Astrocytoma. Altered mental status. Comparison: 06/15/2019 FINDINGS: Cardiac silhouette: Normal Aorta: Unremarkable Pulmonary vessels: Normal Costophrenic angles: Clear LUNGS: No masses or consolidation. Pneumothorax: None Osseous abnormalities: None IMPRESSION: No acute cardiopulmonary process.
[2020-04-12 13:41] LABS: ALT (SGPT) 11 U/L (8-55); AST (SGOT) 20 U/L (5-34); Albumin 3.9 g/dL (3.5-5.0); Alkaline Phosphatase 58 U/L (40-110); Anion Gap 22 mmol/L (10-20); BUN (Urea Nitrogen) 12 mg/dL (7.0-18.7); Bilirubin, Total 1.2 mg/dL (0.2-1.2); Calc. Creatinine Clearance 0 mL/min (70-130); Calcium 9.1 mg/dL (7.8-10.44); Carbon Dioxide 23 mmol/L (22-29); Chloride 96 mmol/L (98-107); Globulin 2.6 g/dL (2.4-3.5); Glucose 139 mg/dL (70-105); Potassium 3.1 mmol/L (3.5-5.1); Protein, Total 6.5 g/dL (6.0-8.3); Sodium 138 mmol/L (136-145)
[2020-04-12 14:26] LABS: Bilirubin Large (Negative); Blood, Urine Trace (Negative); Glucose, Urine (Dipstick) Negative (Negative); Ketone, Urine 40 mg/dL (Negative); Leukocyte Trace (Negative); Nitrite Positive (Negative); Protein, Urine (Dipstick) 100 mg/dL (Neg-Trace); pH, Urine 5.5 (5.0-9.0)
--- NOTE | 2020-04-12 14:29 | CT ---
EXAM: CT ABDOMEN AND PELVIS HISTORY: Nausea. Vomiting. Diffuse abdominal pain. Astrocytoma. Multiple falls. COMPARISON: None. Procedure: Multiple contiguous axial images were obtained and a CT of the abdomen and pelvis with IV contrast. C oronal reformats were performed. FINDINGS: Lower Chest: within normal limits. Vessels: Normal caliber aorta. No periaortic fat stranding Heart: Normal heart size. No significant pericardial fluid Abdomen: Portal vein:Patent Gallbladder: No calcified gallstones. Normal caliber wall. Liver: within normal limits. Pancreas: within normal limits. Spleen: within normal limits. Adrenals: within normal limits. Kidneys: Symmetric enhancement. No obstructive uropathy. Peritoneum: No ascites or free air, no fluid collection. Bowel: Limited evaluation due to lack of oral contrast demonstration. No evidence of a small bowel ob struction. Multiple normal caliber small bowel loops. Normal ileocecal junction. Normal caliber appendix. There is mucosal thickening involving the transverse colon and descending colon. Mesentery and Retroperitoneum: No enlarged mesenteric or retroperitoneal lymph nodes. Abdominal Wall: within normal limits. Pelvis: Reproductive Organs: Reproductive organs are unremarkable. Pelvis: No mass, lymphadenopathy, free air or free fluid. Bladder: within normal limits. Bones: within normal limits. IMPRESSION: Mucosal thickening involving the transverse colon and descending colon, compatible with a infectious colitis.
[2020-04-12 14:30] LABS: Clarity Turbid (Clear)
--- NOTE | 2020-04-12 14:30 | CT ---
Exam: CT brain PROVIDED CLINICAL HISTORY: AMS COMPARISON: 12/27/2018 FINDINGS: The ventricular system is normal in size and morphology. No evidence for intracranial hemorrhage or mass effect. The extracranial soft tissues and osseous structures demonstrate no evidence for an acute abnormality. Postoperative changes involving the right frontotemporal skull. Hypodensity adjace nt to the right frontal cortex on images 34, 35 and 36 may reflect CSF but is incompletely characterized in the absence of IV contrast material. IMPRESSION: No evidence for intracranial hemorrhage or mass effect. Assessment for residual or recurrent disease is limited in the absence of IV contrast.
[2020-04-12 14:31] LABS: Specific Gravity, Urine 1.026 (1.002-1.036)
[2020-04-12 14:33] LABS: Bacteria/HPF 2+ HPF (None Seen); Squamous Epithelial Greater than 50 HPF (0-3); WBC/HPF 21-50 HPF (0-3)
[2020-04-12] MEDS ORDERED: Iopamidol-370 76% 500 ML 1 ML ONE (14:58)
[2020-04-12 16:11] LABS: Lactic Acid 1.1 mmol/L (0.5-2.2)
[2020-04-12 16:12] LABS: Bilirubin Negative (Negative); Blood, Urine Negative (Negative); Clarity Clear (Clear); Glucose, Urine (Dipstick) Normal (Negative); Ketone, Urine 40 mg/dL (Negative); Leukocyte Negative Leu/uL (Negative); Nitrite Negative (Negative); Protein, Urine (Dipstick) 20 mg/dL (Neg-Trace); Urobilinogen Normal mg/dL (Less than 2); pH, Urine 6.5 (5.0-9.0)
[2020-04-12 16:16] LABS: Specific Gravity, Urine Greater than 1.060 (1.002-1.036)
[2020-04-12] MEDS ORDERED: Ondansetron PF 4 MG/2 ML Vial ONE (17:28)
[2020-04-12] MEDS ORDERED: Piperacillin/Tazobactam 3.375 GM VIAL ONE (17:28)
[2020-04-12] MEDS ORDERED: Senokot S 8.6-50 MG TAB PO PRN (17:47)
[2020-04-12] MEDS ORDERED: Acetaminophen 325 MG TAB PO PRN (17:47)
--- NOTE | 2020-04-12 19:06 | PDOC.HHP ---
Hospitalist HPI - History of Present Illness Weakness; nausea, vomiting and constipation History of Present Illness: 49 yr old presents to the ED today for feeling weak and has had 2 falls today, 2nd one prompted the ED visit. She reports diffuse abdominal pain, nausea and retching but states she does not vomit much up when she retches. This has been going on for the past several days. She has Zofran at home which she has been taking and has helped with the nausea. She has a history of astrocytoma and underwent a craniotomy in 2019 and started on radiation 6 weeks later. She is currently on Chemotherapy and sees Dr. Beatty. Last chemotherapy was a week ago. She does not have a port. Denies surgery other than the craniotomy. Also has a seizure d/o and is on Keppra. She does not have a PCP. Patient reports a decreased appetite, chronically since December and also has been constipated intermittently for several months. She reports feeling dehydrated lately. In the ED, CT scan results indicates infectious colitis and her initial UA indicated a UTI, however, a subsequent UA sample was negative for nitrates, WBC or leukocysts. A urine culture has been ordered as well as Blood cultures x2. She is thrombocytopenic with platelets at 81. WBC = 6.9, Hbg 9.1, Hct= 27.5 She was started on Zosyn, Zofran and IV fluids in the ED. She states she feels a little better than she did prior to arrival. Hospitalist ROS - Review of Systems Constitutional: reports: weakness Eyes: denies: pain, vision change, conjunctivae inflammation, eyelid inflammation, redness, other ENT: reports: other (dry mucous membranes, chapped lips) Respiratory: denies: cough, dry, shortness of breath, hemoptysis, SOB with excertion, pleuritic pain, sputum, wheezing, other Cardiovascular: denies: chest pain, palpitations, orthopnea, paroxysmal noc. dyspnea, edema, light headedness, other Gastrointestinal: reports: nausea, vomiting, abdominal pain, constipation Genitourinary: denies: dysuria Skin: reports: bruising (Bilateral bruises and abrasions to knees from falling) Neurological: reports: weakness - Medication Medications: Keppra 500mg po BID Zofran 4-8mg po q6h prn Hospitalist History - Past Medical History Cardiac: reports: no pertinent history Pulmonary: reports: no pertinent history [employer]: reports: Seizure, Other (brain tumor) Gastrointestinal: reports: Constipation Heme/Onc: reports: Cancer Musculoskeletal: reports: no pertinent history - Past Surgical History Past Surgical History: reports: Other (craniotomy in 2019) - Family History Family History: reports: no pertinent history - Social History Smoking Status: Never smoker Alcohol: reports: None Drugs: reports: none Living Situation: With Family Activity level: independent ambulation - Exam General Appearance: awake alert Eye: PERRL ENT: normocephalic atraumatic, dry oral mucosa Neck: supple, no JVD Heart: RRR, normal peripheral pulses Respiratory: CTAB, normal chest expansion Gastrointestinal: normal bowel sounds, no guarding, tender to palpation (diffusely) Extremities: no edema Extremities - other findings: Bilateral abrasions with bruising to patellas Neurological: cranial nerve grossly intact Musculoskeletal: generalized weakness Hospitalist Results - Labs Result Diagrams: 04/12/20 13:06 04/12/20 13:06 Lab results: WBC 6.9 thou/uL (4.8-10.8) 04/12/20 13:06 Hgb 9.1 g/dL (12.0-16.0) L 04/12/20 13:06 Hct 27.5 % (36.0-47.0) L 04/12/20 13:06 MCV 101.0 fL (78.0-98.0) H 04/12/20 13:06 Plt Count 81 thou/uL (130-400) L 04/12/20 13:06 Neutrophils % 90.7 % (42.0-75.0) H 04/12/20 13:06 Sodium 138 mmol/L (136-145) 04/12/20 13:06 Potassium 3.1 mmol/L (3.5-5.1) L 04/12/20 13:06 Chloride 96 mmol/L (98-107) L 04/12/20 13:06 Carbon Dioxide 23 mmol/L (22-29) 04/12/20 13:06 BUN 12 mg/dL (7.0-18.7) 04/12/20 13:06 Creatinine 0.83 mg/dL (0.6-1.1) 04/12/20 13:06 Glucose 139 mg/dL (70-105) H 04/12/20 13:06 Lactic Acid 1.1 mmol/L (0.5-2.2) 04/12/20 15:43 Calcium 9.1 mg/dL (7.8-10.44) 04/12/20 13:06 Total Bilirubin 1.2 mg/dL (0.2-1.2) 04/12/20 13:06 AST 20 U/L (5-34) 04/12/20 13:06 ALT 11 U/L (8-55) 04/12/20 13:06 Alkaline Phosphatase 58 U/L (40-110) 04/12/20 13:06 Serum Total Protein 6.5 g/dL (6.0-8.3) 04/12/20 13:06 Albumin 3.9 g/dL (3.5-5.0) 04/12/20 13:06 Urine Ketones 40 mg/dL (Negative) A 04/12/20 15:40 Urine Blood Negative (Negative) 04/12/20 15:40 Urine Nitrite Negative (Negative) 04/12/20 15:40 Ur Leukocyte Esterase Negative Ronit/uL (Negative) 04/12/20 15:40 Urine RBC 4-6 HPF (0-3) A 04/12/20 14:04 Urine WBC 21-50 HPF (0-3) A 04/12/20 14:04 Ur Squamous Epith Cells Greater than 50 HPF (0-3) A 04/12/20 14:04 Urine Bacteria 2+ HPF (None Seen) A 04/12/20 14:04 Hospitalist H&P A/P - Problem (1) Seizure disorder Code(s): G40.909 - EPILEPSY, UNSP, NOT INTRACTABLE, WITHOUT STATUS EPILEPTICUS Status: Chronic (2) Nausea & vomiting Code(s): R11.2 - NAUSEA WITH VOMITING, UNSPECIFIED Status: Acute (3) Constipated Code(s): K59.00 - CONSTIPATION, UNSPECIFIED Status: Chronic (4) Colitis Code(s): K52.9 - NONINFECTIVE GASTROENTERITIS AND COLITIS, UNSPECIFIED Status: Acute (5) Seizure Code(s): R56.9 - UNSPECIFIED CONVULSIONS Status: Chronic - Plan Plan: #Colitis with n/v and constipation IV Fluids at 100ml/hr Zosyn 3.375gm IVPB q6h Zofran 4mg IVP q6h prn Protonix 40mg po daily Golytely in AM; 8 oz per hour until BM is clear Miralax daily; Senokot S PO BID Urine and Blood cultures are pending #seizure d/o Continue Keppra # H/o Astrocytoma; is scheduled for chemo yet; if still hospitalized on Wednesday; may need to discuss with Dr. Beatty SCDs for DVT prevention; protonix for PUD prevention Discussed plan with Dr. Leal
[2020-04-12 20:25] VITALS: BMI 21.5
[2020-04-12] MEDS: levETIRAcetam 500 MG TAB PO SCH (20:28)
[2020-04-12] MEDS: Ondansetron PF 4 MG/2 ML Vial IVP PRN (20:28)
[2020-04-12] MEDS: Senokot S 8.6-50 MG TAB PO SCH (20:28)
[2020-04-12] MEDS: Sodium Chloride 0.9% 1,000 ML IV SCH (20:41)
[2020-04-12] MEDS: Piperacillin/Tazobactam 3.375 GM in Sodium Chloride 0.9% 100 ML IVPB SCH (23:31)
[2020-04-13] MEDS: Sodium Chloride 0.9% 1,000 ML IV SCH ×2 (04:35→06:51)
[2020-04-13] MEDS: Ondansetron PF 4 MG/2 ML Vial IVP PRN ×2 (06:52→20:11)
[2020-04-13] MEDS: Piperacillin/Tazobactam 3.375 GM in Sodium Chloride 0.9% 100 ML IVPB SCH ×4 (06:52→20:10)
[2020-04-13 06:56] LABS: #Lymphocytes 0.4 thou/uL (1.20-3.40); #Monocytes 0.3 thou/uL (0.11-0.59); #Neutrophils 3.3 thou/uL (1.40-6.50); %Eosinophils 0.3 % (0.0-10.0); %Lymphocytes 10.6 % (21.0-51.0); %Monocytes 7.7 % (0.0-10.0); %Neutrophils 81.5 % (42.0-75.0); Hemoglobin 6.7 g/dL (12.0-16.0); Mean Corpuscular HGB CONC 34.5 g/dL (32.0-36.0); Mean Platelet Volume 11.8 fL (7.4-10.4); Platelet Count 58 thou/uL (130-400); RBC Distribution Width 14.9 % (11.5-14.5); Red Blood Cell (RBC) Count 1.91 mill/uL (4.20-5.40)
[2020-04-13 07:26] LABS: ALT (SGPT) 7 U/L (8-55); AST (SGOT) 13 U/L (5-34); Albumin 2.9 g/dL (3.5-5.0); Alkaline Phosphatase 43 U/L (40-110); Anion Gap 15 mmol/L (10-20); BUN (Urea Nitrogen) 6 mg/dL (7.0-18.7); Bilirubin, Total 0.8 mg/dL (0.2-1.2); Calc. Creatinine Clearance 82 mL/min (70-130); Calcium 7.4 mg/dL (7.8-10.44); Carbon Dioxide 24 mmol/L (22-29); Chloride 105 mmol/L (98-107); Globulin 1.8 g/dL (2.4-3.5); Glucose 71 mg/dL (70-105); Potassium 2.6 mmol/L (3.5-5.1); Protein, Total 4.7 g/dL (6.0-8.3); Sodium 141 mmol/L (136-145)
[2020-04-13] MEDS ORDERED: GoLYTELY 4,000 ml Bottle PO SCH (08:00)
[2020-04-13] MEDS ORDERED: Potassium Phosphate 30 MMOL in Sodium Chloride 0.9% 250 ML 250 ML IVPB SCH ×2 (08:30→17:45)
[2020-04-13] MEDS ORDERED: Prevnar 13-Val Conj/PF 0.5 ML SYRINGE IM ONE (09:00)
[2020-04-13] MEDS ORDERED: FLU VACC QS2020-21(6MOS UP)/PF 60 MCG/0.5 ML SYRINGE IM ONE (09:00)
[2020-04-13] MEDS: Senokot S 8.6-50 MG TAB PO SCH ×2 (09:23→20:10)
[2020-04-13] MEDS: levETIRAcetam 500 MG TAB PO SCH ×2 (09:23→20:10)
[2020-04-13] MEDS: Polyethylene Glycol 3350 17 GM Packet PER TUBE SCH (09:23)
[2020-04-13 10:32] LABS: SARS-CoV-2 PCR by NAA Not Detected (NotDetected)
--- NOTE | 2020-04-13 14:33 | CON ---
DATE OF CONSULTATION: 04/13/2020 CHIEF COMPLAINT: Nausea, vomiting, weakness, and fall. HISTORY OF PRESENT ILLNESS: Ms. Martinez is a 49-year-old woman with astrocytoma brain tumor for which she is undergoing chemotherapy. She has had problems with nausea and vomiting since starting oral chemotherapy last November. This last episode has been going on over the last 4 days, where she has had more dry heaves and poor oral intake and nausea. She has had no hematemesis with that. She has had no abdominal pain at baseline, but she has had some tenderness in the left upper quadrant when she has palpated. She has had no diarrhea or blood in the stool. She has been constipated and her last bowel movement maybe sometime last week. Mainly this is associated with poor oral intake. She has been taking ondansetron as well for nausea. She had a fall or presyncopal episode before this admission, which prompted her to come to the emergency room. CT scan of the abdomen and pelvis was performed that showed some thickening of the transverse and descending colon. This was not with oral contrast. She has not had a prior colonoscopy. PAST MEDICAL HISTORY: Significant for astrocytoma and associated seizure. PAST SURGICAL HISTORY: Craniotomy. FAMILY HISTORY: Negative for GI malignancies. SOCIAL HISTORY: No alcohol, tobacco, or drugs. ALLERGIES: NO KNOWN DRUG ALLERGIES. MEDICATIONS: Prior to admission; 1. Keppra. 2. Acetaminophen. 3. Codeine as needed. 4. She has been on Zofran as an outpatient. REVIEW OF SYSTEMS: Negative x10 systems reviewed except as stated in history of present illness. PHYSICAL EXAMINATION: VITAL SIGNS: Temperature 98.3, pulse 84, blood pressure 122/84. GENERAL: She is pale, in no acute distress. Alert and oriented x3. She is frail. LUNGS: Clear to auscultation bilaterally. HEART: Regular rate and rhythm without murmur. HEENT: Eyes have no scleral icterus. Oropharynx is clear without lesions. LYMPHATIC: No cervical or supraclavicular lymphadenopathy. ABDOMEN: Soft. Minimal tenderness in left upper quadrant without guarding. Bowel sounds are present. EXTREMITIES: No lower extremity edema. LABORATORY DATA: White blood cell count 4.0, hemoglobin 6.7, platelets 58,000. INR 0.9. Potassium 2.6, creatinine 0.69, bilirubin 0.8, AST 13, ALT 7, alkaline phosphatase 43, albumin 2.9. IMPRESSION: 1. Chronic nausea, which is exacerbated over the last few days, associated with dry heaves and poor oral intake and weakness resulting in presyncopal episode or fall. This is likely secondary to chemotherapy. Dr. Beatty is adjusting her oral chemotherapy regimen regarding this. Upper endoscopy is not likely to significantly gear changer in the short term, but I would go ahead and cover with a proton pump inhibitor at this point. If the nausea and vomiting persist, however, after adjustment of her chemo regimen, then we can always perform endoscopy to evaluate this further. 2. Constipation. Her last bowel movement was a week or so ago. CT scan does not show significant stool burden, but she does have some stool over in the right colon. I would go ahead and treat with MiraLAX daily. The ondansetron and codeine could certainly worsen her constipation. She should be on a daily osmotic laxative at this point if she can tolerate that from a nausea standpoint. 3. CT scan abnormal of the abdomen showing thickening of the terminal ileum and descending colon. She came in with significant dehydration and anemia and likely had a mild ischemic colitis. She has no diarrhea or blood in the stool associated with that now and is feeling better with IV fluids. Colonoscopy will not be necessary on an urgent basis. I do not think this is likely an infectious process. She is on Zosyn, however, would be reasonable to continue to cover with antibiotics for couple of more days just to reduce the risk of translocation of bacteria if she does have a mild ischemic colitis. Still I would try to taper these off pretty quickly as disruption of the normal thais of the colon could cause more problems. 4. Protein calorie malnutrition. RECOMMENDATIONS: 1. Pantoprazole 40 mg daily. 2. MiraLAX 17 g daily. 3. Followup colonoscopy in a couple of months can be performed in light of her age at 49 and no prior colonoscopy and also to follow up on the reported thickening of the colon by CT. I do not think she would tolerate a bowel prep and colonoscopy is unlikely to gear changer in the short term. 4. Antiemetics as needed. 5. I will start her on a clear liquid diet. We can advance this as she tolerates. Job ID: [id number]
--- NOTE | 2020-04-13 14:51 | CON ---
DATE OF CONSULTATION: REASON FOR CONSULTATION: Brain cancer. 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 She presented to the hospital after falling once in her bathroom and took her 45 minutes to get up and has had abdominal pain, nausea, and retching/vomiting for the past several days. She takes Zofran at home for the nausea, has also tried Compazine and Phenergan. She has not been eating or drinking very much recently. She has had a tough time with chemotherapy over the last several months with failure to thrive. She had frequent episodes of dehydration, nausea, vomiting, poor p.o. intake, and has had a delay in her chemotherapy treatments because of this, as well as thrombocytopenia. In the ER, she had a CT scan suggestive of colitis and a dirty UA, but repeat was negative. After IV fluid resuscitation, she has become more anemic with hemoglobin of 6.7. She has not had a bowel movement in about a week. Her vital signs are stable in the hospital. REVIEW OF SYSTEMS: Ten-point review of systems is negative except as per HPI. PAST MEDICAL HISTORY: Brain cancer. PAST SURGICAL HISTORY: Brain cancer resection in 2019. SOCIAL HISTORY: No smoking. No drinking. CURRENT MEDICATIONS: Reviewed. ALLERGIES: NO KNOWN DRUG ALLERGIES. PHYSICAL EXAMINATION: VITAL SIGNS: Temperature 98.3, pulse 84, respirations 14, saturating 98% on room air, and blood pressure 122/84. GENERAL APPEARANCE: The patient is lying in bed, appears chronically ill, currently in no acute distress. HEENT: Normocephalic, atraumatic. NECK: Supple. RESPIRATIONS: Clear and nonlabored. HEART: Regular rhythm and rate. ABDOMEN: Mild tenderness. EXTREMITIES: No edema. NEUROLOGIC: Cranial nerves 2 through 12 are grossly intact. PSYCHIATRIC: Awake, alert, and oriented x3 with normal affect. LABORATORY DATA: White blood cells 4.0, hemoglobin 6.7, platelets 58, down from admission with white blood cells 6.9, hemoglobin 9.1, and platelets 81. Potassium 2.6 today, BUN 6, creatinine 0.69. Albumin 2.9, down from 3.9 yesterday. COVID negative. IMAGING DATA: Brain CT has not shown recurrence of disease, but is limited given lack of IV contrast. CT abdomen and pelvis shows mucosal thickening involving the transverse colon and descending colon, compatible with colitis. ASSESSMENT AND PLAN: A 49-year-old female with grade 2 astrocytoma, status post surgery, radiation, and currently on adjuvant chemotherapy, last took procarbazine a couple days of ago and is on her last cycle. I have discussed her case with Dr. Tilley, who believes her colitis is more likely a mild case of ischemic colitis and not infectious and she also is having no blood in the stool and is having no diarrhea and in fact has constipation. I expect her symptoms are likely more related to chemotherapy. I do expect her pain may be related to the ischemic colitis. Agree with Dr. Tilley to continue IV antibiotics for now to see how she improves for the next couple of days and can test the stool if she does have a bowel movement. She will need a colonoscopy after recovering and after completing her chemotherapy, which will be in the next 1 to 2 months. I do not see an indication for endoscopy at this point and concur with Dr. Tilley. Recommend continuing antibiotics and supportive care along with IV fluids. Transfuse PRBCs currently ordered for today. The patient does not need platelet transfusion at this time unless platelets drop to less than 10 to 20. We will follow along with you. Job ID: [id number] MTDD
--- NOTE | 2020-04-13 15:01 | PDOC.HOSPP ---
- Subjective Encounter Date: 04/13/20 Encounter Time: 14:59 Subjective: Overnight Hg dropped to 6.7. No bowel movements. Patient does report occasional dark stools, but is currently constipated and has not had a BM in over a week. She endorses mailase, feels very weak. Denies chest pain, SOB. Endorses vauge abdominal discomfort 2/2 repeated nausea and vomiting. Chart and medications reviewed. - Objective Vital Signs & Weight: Vital Signs (12 hours) Temp Pulse Resp BP Pulse Ox 04/13/20 11:06 98.3 F 84 14 122/84 98 04/13/20 08:00 96 04/13/20 07:39 98.3 F 82 16 126/85 96 04/13/20 05:49 98.1 F 83 18 128/83 97 Weight Weight 118 lb Result Diagrams: 04/18/20 01:52 04/18/20 01:52 Hospitalist ROS - Review of Systems Constitutional: reports: weakness, malaise. denies: fever, chills, sweats, other Eyes: denies: pain, vision change, conjunctivae inflammation, eyelid inflammation, redness, other ENT: denies: ear pain, ear discharge, nose pain, nose discharge, nose congestion, mouth pain, mouth swelling, throat pain, throat swelling, other Respiratory: denies: cough, dry, shortness of breath, hemoptysis, SOB with excertion, pleuritic pain, sputum, wheezing, other Cardiovascular: denies: chest pain, palpitations, orthopnea, paroxysmal noc. dyspnea, edema, light headedness, other Gastrointestinal: reports: nausea, vomiting, abdominal pain, constipation. denies: diarrhea, melena, hematochezia, other Genitourinary: denies: dysuria, frequency, incontinence, hematuria, retention, other Musculoskeletal: denies: neck pain, shoulder pain, arm pain, back pain, hand pain, leg pain, foot pain, other Skin: denies: rash, lesions, braxton, bruising, other Neurological: denies: weakness, numbness, incoordination, change in speech, confusion, seizures, other - Medication Medications: Active Medications Generic Name Dose Route Start Last Admin Trade Name Freq PRN Reason Stop Dose Admin Sodium Chloride 1,000 mls @ 100 mls/hr 04/12/20 18:00 04/13/20 06:51 Normal Saline 0.9% IV 1,000 mls .Q10H MARIANA Administration Piperacillin Sod/Tazobactam 100 mls @ 200 mls/hr 04/13/20 15:00 04/13/20 14:58 Sod 3.375 gm/ Sodium Chloride IVPB 100 mls 0300,0900,1500,2100 MARIANA Administration Levetiracetam 500 mg 04/12/20 21:00 04/13/20 09:23 Levetiracetam 500 Mg Tab PO 500 mg BID MARIANA Administration Ondansetron HCl 4 mg 04/12/20 17:47 04/13/20 06:52 Ondansetron Pf 4 Mg/2 Ml Vial IVP 4 mg Q6H PRN Administration Nausea/Vomiting Pantoprazole Sodium 40 mg 04/13/20 09:00 04/13/20 09:23 Pantoprazole 40 Mg Tab PO 40 mg DAILY MARIANA Administration Polyethylene Glycol 17 gm 04/13/20 09:00 04/13/20 09:23 Polyethylene Glycol 3350 17 Gm Packet PER TUBE 17 gm DAILY MARIANA Administration Senna/Docusate Sodium 2 tab 04/12/20 21:00 04/13/20 09:23 Senokot S 8.6-50 Mg Tab PO 2 tab BID MARIANA Administration Hospitalist Exam General Appearance: NAD, awake alert, ill appearing General - other findings: Cachectic, Pale Eye: PERRL, anicteric sclera ENT: normocephalic atraumatic, no oropharyngeal lesions, dry oral mucosa Neck: supple, symmetric, no JVD, no thyromegaly, no lymphadenopathy, no carotid bruit Heart: RRR, no murmur, no gallops, no rubs, normal peripheral pulses Respiratory: CTAB, no wheezes, no rales, no ronchi, normal chest expansion, no tachypnea, normal percussion Gastrointestinal: soft, non-tender, non-distended, normal bowel sounds, no palpable masses, no hepatomegaly, no splenomegaly, no bruit Extremities: no cyanosis Skin: normal turgor, no lesions, no rashes Neurological: cranial nerve grossly intact, normal sensation to touch, no weakness, no focal deficits, no new deficit Musculoskeletal: normal tone, generalized weakness, diffuse muscle atrophy Psychiatric: normal affect, normal behavior, A&O x 3 Hosp A/P - Plan Generalized weakness 49 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 No head strike or loss of consciousness. Hemoglobin on presentation 9.1, down to 6.7 this morning. No evidence of bleeding. Patient denies melena, hematochezia, hematemesis. No hematuria. Likely partially dilutional since patient has received IV fluids. Patient likely chronically anemic. Will give 1 unit of packed red blood cells as well as run iron, vitamin B12 folate studies. Plan 1 unit packed RBCs Trend H&H Nausea and Vomiting Patient with persistent nausea vomiting secondary to chemotherapy regimen. Patient initially unable to tolerate p.o. on presentation. Improved with IV Zofran this morning. Will obtain GI consult for further recommendations. Plan IV antiemetics GI consult recommendations appreciated Colitis Patient with colitis on CT scan. Does have nausea vomiting and vague abdominal pain. Patient started on IV Zosyn in emergency room. Question if colitis is secondary to chemotherapy versus infectious sources patient does not have elevated white blood cell count and is afebrile. Will consult oncologist to see if side effect versus chemotherapy versus ischemic/infectious colitis. Plan IV Zosyn GI consult Oncology consult Anemia Hemoglobin on presentation 9.1 down to 6.7 this a.m. no evidence of bleed will give 1 unit packed red blood cells as above. Plan 20 packed RBCs Trend H&H Iron, vitamin B12, folate Hypokalemia Potassium on presentation 3.1, down to 2.6 this a.m. repleted with IV potassium. We will continue to trend and replete as needed. Astrocytoma Patient with astrocytoma status post resection in 2019. Currently follows with Dr. Beatty and undergoing active chemotherapy. Suspect colitis and nausea vomiting symptoms likely related to side effects of patient's chemotherapy. Patient unsure what specific medication she is receiving. Will consult oncology for further recommendations. Plan Oncology consult, recommendations appreciated DVT prophylaxisLovenox Full code Case discussed with attending physician, Dr. Reyez
[2020-04-13 15:48] LABS: #Lymphocytes 0.4 thou/uL (1.20-3.40); #Monocytes 0.3 thou/uL (0.11-0.59); #Neutrophils 3.4 thou/uL (1.40-6.50); %Basophils 0.4 % (0.0-1.0); %Eosinophils 0.1 % (0.0-10.0); %Lymphocytes 9.1 % (21.0-51.0); %Monocytes 7.7 % (0.0-10.0); %Neutrophils 82.7 % (42.0-75.0); Hemoglobin 6.7 g/dL (12.0-16.0); Mean Corpuscular HGB CONC 34.1 g/dL (32.0-36.0); Mean Corpuscular Hemoglobin 34.7 pg (27.0-31.0); Mean Platelet Volume 10.7 fL (7.4-10.4); Platelet Count 56 thou/uL (130-400); RBC Distribution Width 15.3 % (11.5-14.5); Red Blood Cell (RBC) Count 1.93 mill/uL (4.20-5.40); White Blood Cell (WBC) Count 4.1 thou/uL (4.8-10.8)
[2020-04-13] MEDS ORDERED: Polyethylene Glycol 3350 17 GM Packet PER TUBE SCH (16:00)
[2020-04-13 16:06] LABS: Anion Gap 20 mmol/L (10-20); BUN (Urea Nitrogen) 5 mg/dL (7.0-18.7); Calc. Creatinine Clearance 85 mL/min (70-130); Calcium 7.3 mg/dL (7.8-10.44); Carbon Dioxide 22 mmol/L (22-29); Chloride 103 mmol/L (98-107); Glucose 64 mg/dL (70-105); Sodium 142 mmol/L (136-145)
[2020-04-13] MEDS ORDERED: hydrALAZINE 20 MG/ML VIAL SLOW IVP PRN (20:36)
[2020-04-14] MEDS: Piperacillin/Tazobactam 3.375 GM in Sodium Chloride 0.9% 100 ML IVPB SCH ×4 (03:28→20:36)
[2020-04-14] MEDS: Sodium Chloride 0.9% 1,000 ML IV SCH ×2 (03:31→10:59)
[2020-04-14] MEDS: Senokot S 8.6-50 MG TAB PO SCH ×3 (08:07→20:42)
[2020-04-14] MEDS: Polyethylene Glycol 3350 17 GM Packet PER TUBE SCH ×2 (08:07→20:37)
[2020-04-14] MEDS: levETIRAcetam 500 MG TAB PO SCH ×2 (08:07→20:37)
[2020-04-14] MEDS: Ondansetron PF 4 MG/2 ML Vial IVP PRN (10:59)
[2020-04-14] MEDS ORDERED: Acetaminophen/Codeine 30-300mg Tablet PO PRN (12:44)
--- NOTE | 2020-04-14 12:57 | PDOC.HOSPP ---
- Subjective Encounter Date: 04/14/20 Encounter Time: 12:45 Subjective: f/u for abd pain/colitis receiving Zosyn/Zofran/IVF's. States no BM currently. Some nausea treated with Zofran this am. Tolerating small amount of clear liquids but doesn't like the taste. Received 1u PRBC's on 04/13/20. - Objective Vital Signs & Weight: Vital Signs (12 hours) Temp Pulse Resp BP Pulse Ox 04/14/20 10:45 98.4 F 81 24 H 142/91 H 96 04/14/20 08:10 98.7 F 100 16 131/69 94 L 04/14/20 05:36 98.4 F 80 18 132/85 97 Weight Weight 118 lb I&O: 04/13/20 04/14/20 04/15/20 06:59 06:59 06:59 Intake Total 750 Balance 750 Result Diagrams: 04/13/20 15:31 04/13/20 15:31 Additional Labs: Microbiology 04/12/20 14:04 Urine voided Urine Culture - Preliminary NO GROWTH AT 12 HOURS 04/12/20 13:06 Venous blood - Right Arm Blood Culture - Preliminary NO GROWTH AT 48 HOURS 04/12/20 13:06 Venous blood - Left Arm Blood Culture - Preliminary NO GROWTH AT 48 HOURS Laboratory Tests 04/12/20 04/12/20 04/12/20 13:06 13:06 23:20 WBC 6.9 Hgb 9.1 L Plt Count 81 L Potassium 3.1 L SARS-CoV-2 RNA ([facility]) Not Detected 04/13/20 04/13/20 06:14 06:14 WBC 4.0 L Hgb 6.7 L Plt Count 58 L Potassium 2.6 L* SARS-CoV-2 RNA ([facility]) Radiology Reviewed by me: Yes (CT abd/pel - wall thickening of transverse/descending colon) Hospitalist ROS - Medication Medications: Active Medications Generic Name Dose Route Start Last Admin Trade Name Freq PRN Reason Stop Dose Admin Sodium Chloride 1,000 mls @ 100 mls/hr 04/12/20 18:00 04/14/20 10:59 Normal Saline 0.9% IV 1,000 mls .Q10H MARIANA Administration Piperacillin Sod/Tazobactam 100 mls @ 200 mls/hr 04/13/20 15:00 04/14/20 08:06 Sod 3.375 gm/ Sodium Chloride IVPB 100 mls 0300,0900,1500,2100 MARIANA Administration Ondansetron HCl 4 mg 04/12/20 17:47 04/14/20 10:59 Ondansetron Pf 4 Mg/2 Ml Vial IVP 4 mg Q6H PRN Administration Nausea/Vomiting Pantoprazole Sodium 40 mg 04/13/20 09:00 04/14/20 08:07 Pantoprazole 40 Mg Tab PO 40 mg DAILY MARIANA Administration Polyethylene Glycol 17 gm 04/13/20 09:00 04/14/20 08:07 Polyethylene Glycol 3350 17 Gm Packet PER TUBE 17 gm DAILY MARIANA Administration Senna/Docusate Sodium 2 tab 04/12/20 21:00 04/14/20 08:07 Senokot S 8.6-50 Mg Tab PO 2 tab BID MARIANA Administration - Exam General Appearance: awake alert, ill appearing Eye: PERRL, anicteric sclera ENT: normocephalic atraumatic, no oropharyngeal lesions Neck: supple, symmetric, no JVD, no thyromegaly, no lymphadenopathy Heart: RRR, no gallops, no rubs, normal peripheral pulses Heart - other findings: S1, S2 Respiratory: CTAB, no wheezes, no rales, no ronchi, normal chest expansion, no tachypnea Gastrointestinal: soft, non-distended, normal bowel sounds, no palpable masses Gastrointestinal - other findings: mild TTP in mid-epigastric region Extremities: no cyanosis, no clubbing, no edema Skin: normal turgor Neurological: cranial nerve grossly intact, no new deficit Musculoskeletal: normal tone, generalized weakness Psychiatric: normal affect, A&O x 3 Hosp A/P (1) Astrocytoma brain tumor Code(s): C71.9 - MALIGNANT NEOPLASM OF BRAIN, UNSPECIFIED Status: Acute (2) Colitis Code(s): K52.9 - NONINFECTIVE GASTROENTERITIS AND COLITIS, UNSPECIFIED Status: Acute (3) Nausea & vomiting Code(s): R11.2 - NAUSEA WITH VOMITING, UNSPECIFIED Status: Acute (4) Constipated Code(s): K59.00 - CONSTIPATION, UNSPECIFIED Status: Chronic (5) Hypokalemia Code(s): E87.6 - HYPOKALEMIA Status: Acute - Plan 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
--- NOTE | 2020-04-14 13:48 | PRG ---
DATE OF SERVICE: 04/14/2020 SUBJECTIVE: Ms. Martinez is feeling pretty much the same as yesterday. She had some nausea this morning, where she took Zofran . She has had no bowel movement still. She has not taken a lot in by mouth. OBJECTIVE: VITAL SIGNS: Temperature 98.4, pulse 81, blood pressure 142/91. GENERAL: She is in no acute distress. Alert and oriented x3. LUNGS: Clear to auscultation bilaterally. HEART: Regular rate and rhythm without murmur. ABDOMEN: Soft, nontender, nondistended. Bowel sounds are present. EXTREMITIES: No lower extremity edema. IMPRESSION: 1. Chronic nausea, likely related to her chemotherapy. Hopefully, this will improve as she gets further out from her last dose. 2. Constipation. We will bump her MiraLAX up to twice daily. We will also transition from the Zofran to promethazine to see if she can tolerate this adequately and if it might cause less constipation than the Zofran for her. 3. Anemia of chronic disease. Status post 1 unit transfusion yesterday. RECOMMENDATIONS: 1. MiraLAX twice daily. 2. We will try to transition from ondansetron to promethazine. 3. If the promethazine does not make her sleepy and she does not have improvement at the lower dose, we can bump the dose up. Job ID: [id number]
[2020-04-14] MEDS: Potassium Chloride 40 MEQ in Sodium Chloride 0.45% 1,000 ML IV SCH (14:14)
[2020-04-14 14:29] LABS: #Lymphocytes 0.6 thou/uL (1.20-3.40); #Monocytes 0.6 thou/uL (0.11-0.59); #Neutrophils 4.7 thou/uL (1.40-6.50); %Eosinophils 0.4 % (0.0-10.0); %Lymphocytes 9.8 % (21.0-51.0); %Monocytes 9.6 % (0.0-10.0); %Neutrophils 80.2 % (42.0-75.0); Hemoglobin 9.8 g/dL (12.0-16.0); Mean Corpuscular HGB CONC 34.2 g/dL (32.0-36.0); Mean Corpuscular Hemoglobin 32.8 pg (27.0-31.0); Mean Corpuscular Volume 95.9 fL (78.0-98.0); Mean Platelet Volume 11.6 fL (7.4-10.4); Platelet Count 62 thou/uL (130-400); RBC Distribution Width 17.4 % (11.5-14.5); Red Blood Cell (RBC) Count 2.98 mill/uL (4.20-5.40); White Blood Cell (WBC) Count 5.8 thou/uL (4.8-10.8)
[2020-04-14] MEDS: Promethazine 25 MG TAB PO PRN ×2 (14:55→22:29)
[2020-04-15] MEDS: Potassium Chloride 40 MEQ in Sodium Chloride 0.45% 1,000 ML IV SCH ×2 (01:50→14:07)
[2020-04-15] MEDS: Piperacillin/Tazobactam 3.375 GM in Sodium Chloride 0.9% 100 ML IVPB SCH ×4 (01:51→21:20)
[2020-04-15 06:38] LABS: Hemoglobin 8.9 g/dL (12.0-16.0); Mean Corpuscular Hemoglobin 32.2 pg (27.0-31.0); Mean Corpuscular Volume 97.4 fL (78.0-98.0); Mean Platelet Volume 11.9 fL (7.4-10.4); Platelet Count 49 thou/uL (130-400); RBC Distribution Width 17.8 % (11.5-14.5); Red Blood Cell (RBC) Count 2.76 mill/uL (4.20-5.40); White Blood Cell (WBC) Count 3.4 thou/uL (4.8-10.8)
[2020-04-15 06:53] LABS: Anion Gap 15 mmol/L (10-20); BUN (Urea Nitrogen) Less than 4 mg/dL (7.0-18.7); Calc. Creatinine Clearance 81 mL/min (70-130); Calcium 7.3 mg/dL (7.8-10.44); Carbon Dioxide 25 mmol/L (22-29); Chloride 102 mmol/L (98-107); Glucose 62 mg/dL (70-105); Potassium 3.5 mmol/L (3.5-5.1); Sodium 138 mmol/L (136-145)
[2020-04-15] MEDS: Senokot S 8.6-50 MG TAB PO SCH ×2 (08:23→21:20)
[2020-04-15] MEDS: Polyethylene Glycol 3350 17 GM Packet PER TUBE SCH ×2 (08:23→21:20)
[2020-04-15] MEDS: levETIRAcetam 500 MG TAB PO SCH ×2 (08:24→21:20)
[2020-04-15] MEDS: Promethazine 25 MG TAB PO PRN ×2 (08:37→14:05)
[2020-04-15 09:09] LABS: Band 9 % (5-11); Eosinophils 2 % (0-10); Lymphocytes 21 % (21-51); MDiff Complete? YES; Metamyelocyte 1 % (0-0); Monocytes 5 % (0-10); Neutrophil 61 % (42-75); Platelet Morphology Comment Appears Decreased; Polychromasia MODERATE = 3-4 cells (100X) (0-2/hpf); Reactive Lymphocytes 1 % (0-10); Schistocytes SLIGHT = 2-5 cells (100X) (0-1/hpf); Tear Drops SLIGHT = 2-5 cells (100X) (0-1/hpf)
--- NOTE | 2020-04-15 10:37 | PRG ---
DATE OF SERVICE: 04/15/2020 SUBJECTIVE: Ms. Martinez still has mild baseline nausea; however, she feels little bit better today. She did have a bowel movement, which was mostly runny. OBJECTIVE: VITAL SIGNS: Temperature 98.5, pulse 86, and blood pressure 145/96. GENERAL: She is in no acute distress. She is very frail. LUNGS: Clear to auscultation bilaterally. HEART: Regular rate and rhythm without murmur. ABDOMEN: Soft. Mild tenderness in upper abdomen without guarding. Bowel sounds are present. EXTREMITIES: No lower extremity edema. LABORATORY DATA: White blood cell count 3.4, hemoglobin 8.9, and platelets 49. Creatinine 0.7. IMPRESSION: 1. Chronic nausea, which is likely related to her oral chemotherapy. Hopefully, this will improve as she progresses from her last dose last week. She feels a little bit better today. We changed from ondansetron to low-dose promethazine for nausea. 2. Constipation. She had a bowel movement now. We can likely back MiraLAX to once daily. 3. Anemia of chronic disease, status post transfusion. RECOMMENDATIONS: 1. Continue MiraLAX. 2. Continue proton pump inhibitor. 3. Promethazine for nausea, low dose. Job ID: [id number]
--- NOTE | 2020-04-15 16:50 | PQF ---
CLINICAL DOCUMENTATION CLARIFICATION FORM: Dear Dr. Connor Date: 04/15/2020 Please exercise your independent, professional judgment in responding to the clarification form. Clinical indicators are provided on the bottom of this form for your review. Please check appropriate box(es): [ x ] Protein Calorie Malnutrition: [ ] Mild [ x ] Moderate [ ] Severe [ ] Other Malnutrition (please specify) [ ] Underweight without malnutrition [ ] Cachexia [ ] Other diagnosis [ ] Unable to determine In addition, please specify: Present on Admission (POA): [ x ] Yes [ ] No [ ] Unable to determine For continuity of documentation, please document condition throughout progress notes and discharge summary. Thank You. To be completed by CDI/Coding staff for physician review: CLINICAL INDICATORS - SIGNS / SYMPTOMS / LABS / RESULTS AND LOCATION IN MR *Materials Inspector Assessment 04/15: BMI 21.5 Nutrition diagnosis: Malnutrition related to colitis on top of cancer with chemo As Evidenced By meeting severe acute (on chronic) malnutrition criteria: pt eating < or equal to 50% estimated needs for > or equal to 5 days and -9% in 4 months. *04/13 Consult (Rogerio): HPI: She has not been eating or drinking very much recently. She has had a tough time with chemotherapy over the last several months with failure to thrive. *04/13 pn (Raoul): Exam: General: Cachectic, pale Musculoskeletal: normal tone, generalized weakness, diffuse muscle atrophy RISK FACTORS / RESULTS AND LOCATION IN MR *H&P 04/12 (O'Luis Miguel): HPI: reports abdominal pain, nausea and retching . going on past several days. : Pt reports decreased appetite, chronically since December. 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 Ischemic colitis. TREATMENT / RESULTS AND LOCATION IN MR *Order 04/15: Materials Inspector Consult for poor appetite *Order 04/15: Supplement: Ensure Enlive TID Moderate Malnutrition (in acute illness) Energy Intake: <75% of estimated energy requirement for > 7 days Weight Loss: 1-2%/1 week; 5%/ 1 month; 7.5%/3 months Other: mild body fat loss; mild muscle mass loss; mild fluid accumulation; Severe Malnutrition (in acute illness) Energy Intake: = 50% of estimated energy requirement for = 5 days Weight Loss: >2%/1 week; >5%/1 month; >7.5%/3 months Other: moderate body fat loss; moderate muscle mass loss; moderate- severe fluid accumulation; measurably reduced marketing programs specialist strength Moderate Malnutrition (in chronic illness) Energy Intake: <75% of estimated energy requirement for =1 month Weight Loss: 5%/1 month; 7.5%/3 months; 10%/6 months; 20%/1 year Other: mild body fat loss; mild muscle mass loss; mild fluid accumulation Severe Malnutrition (in chronic illness) Energy Intake: =75% of estimated energy requirement for =1 month Weight Loss: >5%/1 month; >7.5%/3 months; >10%/6 months; >20%/1 year Other: severe body fat loss; severe muscle mass loss; severe fluid accumulation; measurably reduced marketing programs specialist strength Thank you, Marine Calixto RN, BSN [email or web address] This is a permanent part of the Medical Record [facility]
--- NOTE | 2020-04-15 19:55 | PDOC.HOSPP ---
- Subjective Encounter Date: 04/15/20 Encounter Time: 19:30 Subjective: f/u for abd pain/N/V tx with IVF's/Zofran/Promethazine. Tolerating current diet with overall improvement in symptoms. + BM. - Objective Vital Signs & Weight: Vital Signs (12 hours) Temp Pulse Resp BP Pulse Ox 04/15/20 15:03 98.6 F 92 12 153/103 H 96 04/15/20 11:16 98.4 F 106 H 14 133/99 H 99 04/15/20 08:20 98 Weight Admit Weight 118 lb Weight 118 lb I&O: 04/14/20 04/15/20 04/16/20 06:59 06:59 06:59 Intake Total 750 3350 1740 Balance 750 3350 1740 Result Diagrams: 04/15/20 06:03 04/15/20 06:03 Additional Labs: Microbiology 04/12/20 14:04 Urine voided Urine Culture - Preliminary NO GROWTH AT 12 HOURS 04/12/20 13:06 Venous blood - Right Arm Blood Culture - Preliminary NO GROWTH AT 48 HOURS 04/12/20 13:06 Venous blood - Left Arm Blood Culture - Preliminary NO GROWTH AT 48 HOURS Laboratory Tests 04/12/20 04/12/20 04/12/20 13:06 13:06 23:20 WBC 6.9 Hgb 9.1 L Plt Count 81 L Potassium 3.1 L SARS-CoV-2 RNA ([facility]RI[facility]) Not Detected 04/13/20 04/13/20 06:14 06:14 WBC 4.0 L Hgb 6.7 L Plt Count 58 L Potassium 2.6 L* SARS-CoV-2 RNA ([facility]ERRIE) Hospitalist ROS - Medication Medications: Active Medications Generic Name Dose Route Start Last Admin Trade Name Freq PRN Reason Stop Dose Admin Acetaminophen 650 mg 04/12/20 17:47 04/14/20 14:55 Acetaminophen 325 Mg Tab PO 650 mg Q4H PRN Administration Headache/Fever/Mild Pain (1-3) Piperacillin Sod/Tazobactam 100 mls @ 200 mls/hr 04/13/20 15:00 04/15/20 14:04 Sod 3.375 gm/ Sodium Chloride IVPB 100 mls 0300,0900,1500,2100 MARIANA Administration Potassium Chloride 40 meq/ 1,020 mls @ 100 mls/hr 04/14/20 13:15 04/15/20 14:07 Sodium Chloride IV 1,020 mls .[id number] MARIANA Administration Levetiracetam 500 mg 04/14/20 21:00 04/15/20 08:24 Levetiracetam 500 Mg Tab PO 500 mg BID MARIANA Administration Pantoprazole Sodium 40 mg 04/13/20 09:00 04/15/20 08:24 Pantoprazole 40 Mg Tab PO 40 mg DAILY MARIANA Administration Polyethylene Glycol 17 gm 04/14/20 21:00 04/15/20 08:23 Polyethylene Glycol 3350 17 Gm Packet PER TUBE Not Given BID MARIANA Promethazine HCl 12.5 mg 04/14/20 13:58 04/15/20 14:05 Promethazine 25 Mg Tab PO 12.5 mg Q6H PRN Administration Nausea/Vomiting Senna/Docusate Sodium 2 tab 04/12/20 21:00 04/15/20 08:23 Senokot S 8.6-50 Mg Tab PO Not Given BID MARIANA - Exam General Appearance: NAD, awake alert Eye: PERRL, anicteric sclera ENT: normocephalic atraumatic, no oropharyngeal lesions Neck: supple, symmetric, no JVD, no thyromegaly, no lymphadenopathy Heart: RRR, no gallops, no rubs, normal peripheral pulses Heart - other findings: S1, S2 Respiratory: CTAB, no wheezes, no rales, no ronchi, normal chest expansion Gastrointestinal: soft, non-tender, non-distended, normal bowel sounds, no palpable masses Extremities: no cyanosis, no clubbing, no edema Skin: normal turgor Neurological: cranial nerve grossly intact, no new deficit Musculoskeletal: normal tone, generalized weakness Psychiatric: normal affect, A&O x 3 Hosp A/P (1) Nausea & vomiting Code(s): R11.2 - NAUSEA WITH VOMITING, UNSPECIFIED Status: Acute Plan: Improved, likely due to chemotherapeutics, continue IVF's/antiemetics (2) Astrocytoma brain tumor Code(s): C71.9 - MALIGNANT NEOPLASM OF BRAIN, UNSPECIFIED Status: Acute Plan: Resume outpt follow up for resumption of chemotherapy (3) Colitis Code(s): K52.9 - NONINFECTIVE GASTROENTERITIS AND COLITIS, UNSPECIFIED Status: Acute Plan: Suspected, mild, continue Zosyn another 24h then de-escalate (4) Constipated Code(s): K59.00 - CONSTIPATION, UNSPECIFIED Status: Chronic Qualifiers: Constipation type: slow transit constipation Qualified Code(s): K59.01 - Slow transit constipation Plan: Improved, continue Miralax (5) Hypokalemia Code(s): E87.6 - HYPOKALEMIA Status: Acute - 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
[2020-04-16] MEDS: Promethazine 25 MG TAB PO PRN ×3 (02:33→21:16)
[2020-04-16] MEDS: Potassium Chloride 40 MEQ in Sodium Chloride 0.45% 1,000 ML IV SCH ×3 (02:34→15:59)
[2020-04-16] MEDS: Piperacillin/Tazobactam 3.375 GM in Sodium Chloride 0.9% 100 ML IVPB SCH ×4 (02:34→20:19)
[2020-04-16 06:15] LABS: Band 10 % (5-11); Hemoglobin 9.1 g/dL (12.0-16.0); Hypochromia SLIGHT = 6-15 cells (100X) (0-5/hpf); Lymphocytes 4 % (21-51); MDiff Complete? YES; Mean Corpuscular HGB CONC 33.6 g/dL (32.0-36.0); Mean Corpuscular Hemoglobin 33.2 pg (27.0-31.0); Mean Corpuscular Volume 98.9 fL (78.0-98.0); Mean Platelet Volume 11.5 fL (7.4-10.4); Monocytes 11 % (0-10); Neutrophil 73 % (42-75); Nucleated RBC 1 % (0); Platelet Count 45 thou/uL (130-400); Platelet Morphology Comment Appears Adequate; RBC Distribution Width 17.8 % (11.5-14.5); Reactive Lymphocytes 2 % (0-10); Red Blood Cell (RBC) Count 2.75 mill/uL (4.20-5.40); White Blood Cell (WBC) Count 3.7 thou/uL (4.8-10.8)
--- NOTE | 2020-04-16 08:42 | PDOC.HOSPP ---
- Subjective Encounter Date: 04/16/20 Encounter Time: 08:10 Subjective: f/u for abd pain/colitis/N/V/anemia. Overall feeling better. + loose BM's. Tolerating po intake better overall. No N/V. - Objective Vital Signs & Weight: Vital Signs (12 hours) Temp Pulse Resp BP Pulse Ox 04/16/20 07:55 98.3 F 89 20 137/99 H 97 04/16/20 03:42 97.9 F 100 16 147/98 H 99 04/15/20 23:43 97.9 F 83 16 130/87 96 Weight Admit Weight 118 lb Weight 118 lb I&O: 04/15/20 04/16/20 04/17/20 06:59 06:59 06:59 Intake Total 3350 3420 Balance 3350 3420 Result Diagrams: 04/16/20 05:37 04/15/20 06:03 Additional Labs: Microbiology 04/12/20 14:04 Urine voided Urine Culture - Preliminary NO GROWTH AT 12 HOURS 04/12/20 13:06 Venous blood - Right Arm Blood Culture - Preliminary NO GROWTH AT 48 HOURS 04/12/20 13:06 Venous blood - Left Arm Blood Culture - Preliminary NO GROWTH AT 48 HOURS Laboratory Tests 04/12/20 04/12/20 04/12/20 13:06 13:06 23:20 WBC 6.9 Hgb 9.1 L Plt Count 81 L Potassium 3.1 L SARS-CoV-2 RNA ([facility]RIE) Not Detected 04/13/20 04/13/20 06:14 06:14 WBC 4.0 L Hgb 6.7 L Plt Count 58 L Potassium 2.6 L* SARS-CoV-2 RNA ([facility]ERRIE) Hospitalist ROS - Medication Medications: Active Medications Generic Name Dose Route Start Last Admin Trade Name Freq PRN Reason Stop Dose Admin Acetaminophen 650 mg 04/12/20 17:47 04/14/20 14:55 Acetaminophen 325 Mg Tab PO 650 mg Q4H PRN Administration Headache/Fever/Mild Pain (1-3) Piperacillin Sod/Tazobactam 100 mls @ 200 mls/hr 04/13/20 15:00 04/16/20 02:34 Sod 3.375 gm/ Sodium Chloride IVPB 100 mls 0300,0900,1500,2100 MARIANA Administration Potassium Chloride 40 meq/ 1,020 mls @ 100 mls/hr 04/14/20 13:15 04/16/20 02:34 Sodium Chloride IV 1,020 mls .[id number] MARIANA Administration Levetiracetam 500 mg 04/14/20 21:00 04/15/20 21:20 Levetiracetam 500 Mg Tab PO 500 mg BID MARIANA Administration Pantoprazole Sodium 40 mg 04/13/20 09:00 04/15/20 08:24 Pantoprazole 40 Mg Tab PO 40 mg DAILY MARIANA Administration Polyethylene Glycol 17 gm 04/14/20 21:00 04/15/20 21:20 Polyethylene Glycol 3350 17 Gm Packet PER TUBE Not Given BID [facility] Promethazine HCl 12.5 mg 04/14/20 13:58 04/16/20 02:33 Promethazine 25 Mg Tab PO 12.5 mg Q6H PRN Administration Nausea/Vomiting Senna/Docusate Sodium 2 tab 04/12/20 21:00 04/15/20 21:20 Senokot S 8.6-50 Mg Tab PO Not Given BID [facility] Hospitalist Exam Vitals: Vital Signs (12 hours) Temp Pulse Resp BP Pulse Ox 04/16/20 07:55 98.3 F 89 20 137/99 H 97 04/16/20 03:42 97.9 F 100 16 147/98 H 99 04/15/20 23:43 97.9 F 83 16 130/87 96 Weight Admit Weight 118 lb Weight 118 lb General Appearance: NAD, awake alert Eye: PERRL, anicteric sclera ENT: normocephalic atraumatic, no oropharyngeal lesions Neck: supple, symmetric, no JVD, no thyromegaly, no lymphadenopathy Heart: RRR, no gallops, no rubs, normal peripheral pulses Heart - other findings: S1, S2 Respiratory: CTAB, no wheezes, no rales, no ronchi, normal chest expansion, no tachypnea Gastrointestinal: soft, non-distended, normal bowel sounds, no palpable masses Gastrointestinal - other findings: minimal TTP in LLQ Extremities: no cyanosis, no clubbing, no edema Skin: normal turgor, no lesions Neurological: cranial nerve grossly intact, no new deficit Musculoskeletal: normal tone, generalized weakness Psychiatric: normal affect, A&O x 3 Hosp A/P (1) Nausea & vomiting Code(s): R11.2 - NAUSEA WITH VOMITING, UNSPECIFIED Status: Acute Plan: Resolved, antiemetics PRN (2) Astrocytoma brain tumor Code(s): C71.9 - MALIGNANT NEOPLASM OF BRAIN, UNSPECIFIED Status: Acute Plan: Outpt follow up for resumption of chemotherapy (3) Colitis Code(s): K52.9 - NONINFECTIVE GASTROENTERITIS AND COLITIS, UNSPECIFIED Status: Acute Plan: Presumed infectious, continue Zosyn another 24h then d/c (4) Constipated Code(s): K59.00 - CONSTIPATION, UNSPECIFIED Status: Chronic Qualifiers: Constipation type: slow transit constipation Qualified Code(s): K59.01 - Slow transit constipation Plan: Resolved (5) Hypokalemia Code(s): E87.6 - HYPOKALEMIA Status: Acute Plan: Resolving (6) Protein-calorie malnutrition, moderate Code(s): E44.0 - MODERATE PROTEIN-CALORIE MALNUTRITION Status: Chronic Plan: Continue Regular diet, Ensure Enlive TID - Plan continue antibiotics, 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
[2020-04-16] MEDS: levETIRAcetam 500 MG TAB PO SCH ×2 (08:54→21:17)
[2020-04-16] MEDS: Polyethylene Glycol 3350 17 GM Packet PER TUBE SCH ×2 (08:58→21:14)
[2020-04-16] MEDS: Senokot S 8.6-50 MG TAB PO SCH ×2 (08:58→21:14)
--- NOTE | 2020-04-16 11:42 | PRG ---
DATE OF SERVICE: 04/16/2020 SUBJECTIVE: Ms. Martinez feels that nausea has overall improved. There has been no projectile vomiting. She still has a little bit of indigestion and reflux sensation. There is a bit of mild lower abdominal discomfort. She has been having loose bowel movements. Primarily, her appetite remains poor, but she is tolerating the Ensure. OBJECTIVE: VITAL SIGNS: Temperature 98.3, pulse 89, blood pressure 137/99, and 97% oxygen saturation on room air. GENERAL: No acute distress. HEART: Regular rate and rhythm. LUNGS: Clear to auscultation bilaterally. ABDOMEN: Nondistended, bowel sounds are present. Soft. Mild tenderness to palpation in the periumbilical area, but no guarding or rebound tenderness. EXTREMITIES: No peripheral edema. LABORATORY STUDIES: Hemoglobin 9.1, WBC 3.7, platelets 45. Sodium 138, potassium 3.5, BUN is less than 4, creatinine is 0.70. COVID PCR negative. ASSESSMENT AND PLAN: 1. Nausea and vomiting, improved. Continue with promethazine p.r.n. 2. Poor appetite secondary to underlying illness, chemotherapy. No plan for endoscopic investigation. She is tolerating the Ensure. Continue with diet as tolerated. 3. Constipation. This was a presenting symptom, may have just been secondary to poor oral intake. She is now having loose stools with MiraLAX. Can back off the MiraLAX to as needed use. GI is going to sign off. Please call back anytime with questions or concerns. Job ID: [id number]
--- NOTE | 2020-04-16 15:00 | PDOC.MOPN ---
Interval History: nausea improved, ambulatory in room - Vital Signs Vital Signs: Vital Signs (12 hours) Temp Pulse Resp BP Pulse Ox 04/16/20 12:00 97.9 F 104 H 20 119/84 98 04/16/20 08:50 97 04/16/20 07:55 98.3 F 89 20 137/99 H 97 04/16/20 03:42 97.9 F 100 16 147/98 H 99 Weight Admit Weight 118 lb Weight 118 lb - Physical Exam General: Alert HEENT: Atraumatic Lungs: Clear to auscultation Cardiovascular: Regular rate Abdomen: Normal bowel sounds Neurological: Normal speech - Labs Result Diagrams: 04/16/20 05:37 04/15/20 06:03 Lab results: Laboratory Results - last 24 hr 04/16/20 05:37: WBC 3.7 L, RBC 2.75 L, Hgb 9.1 L, Hct 27.2 L, MCV 98.9 H, MCH 33.2 H, MCHC 33.6, RDW 17.8 H, Plt Count 45 L, MPV 11.5 H, Neutrophils % (Manual) 73, Band Neuts % (Manual) 10, Lymphocytes % (Manual) 4 L, Reactive Lymphs % 2, Monocytes % (Manual) 11 H, Nucleated RBCs # (Man) 1 H, Hypochromia SLIGHT = 6-15 cells, Plt Morphology Comment Appears Adequate Status: lab reviewed by me A/P - 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 Lomustine dc'd 2. she will get additional dose of Vincristine as outpatient. 3. follow-up after discharge
[2020-04-16] MEDS: Megestrol Acetate 40 MG TAB PO SCH (21:17)
[2020-04-17] MEDS: Potassium Chloride 40 MEQ in Sodium Chloride 0.45% 1,000 ML IV SCH ×2 (02:08→16:57)
[2020-04-17] MEDS: Piperacillin/Tazobactam 3.375 GM in Sodium Chloride 0.9% 100 ML IVPB SCH ×3 (02:09→16:01)
[2020-04-17] MEDS: levETIRAcetam 500 MG TAB PO SCH ×2 (10:39→21:23)
[2020-04-17] MEDS: Megestrol Acetate 40 MG TAB PO SCH ×2 (10:39→21:24)
[2020-04-17] MEDS: Polyethylene Glycol 3350 17 GM Packet PER TUBE SCH ×2 (10:40→21:23)
[2020-04-17] MEDS: Senokot S 8.6-50 MG TAB PO SCH ×2 (10:40→21:23)
--- NOTE | 2020-04-17 17:39 | PDOC.HOSPP ---
- Subjective Encounter Date: 04/17/20 Encounter Time: 17:35 Subjective: f/u for N/V/abd pain/colitis. Overall feeling better and appetite improved. - Objective Vital Signs & Weight: Vital Signs (12 hours) Temp Pulse Resp BP Pulse Ox 04/17/20 16:00 99.3 F 117 H 18 119/73 98 04/17/20 12:17 98.0 F 125 H 20 118/89 95 04/17/20 08:00 98 04/17/20 07:35 99.2 F 112 H 18 115/85 98 Weight Admit Weight 118 lb Weight 118 lb I&O: 04/16/20 04/17/20 04/18/20 06:59 06:59 06:59 Intake Total 3420 1800 Balance 3420 1800 Result Diagrams: 04/16/20 05:37 04/15/20 06:03 Additional Labs: Microbiology 04/12/20 14:04 Urine voided Urine Culture - Preliminary NO GROWTH AT 12 HOURS 04/12/20 13:06 Venous blood - Right Arm Blood Culture - Preliminary NO GROWTH AT 48 HOURS 04/12/20 13:06 Venous blood - Left Arm Blood Culture - Preliminary NO GROWTH AT 48 HOURS Laboratory Tests 04/12/20 04/12/20 04/12/20 13:06 13:06 23:20 WBC 6.9 Hgb 9.1 L Plt Count 81 L Potassium 3.1 L SARS-CoV-2 RNA ([facility]) Not Detected 04/13/20 04/13/20 06:14 06:14 WBC 4.0 L Hgb 6.7 L Plt Count 58 L Potassium 2.6 L* SARS-CoV-2 RNA ([facility]) Microbiology 04/16/20 21:28 Urine clean catch Urine Culture - Preliminary NO GROWTH AT 12 HOURS Hospitalist ROS - Medication Medications: Active Medications Generic Name Dose Route Start Last Admin Trade Name Freq PRN Reason Stop Dose Admin Acetaminophen 650 mg 04/12/20 17:47 04/14/20 14:55 Acetaminophen 325 Mg Tab PO 650 mg Q4H PRN Administration Headache/Fever/Mild Pain (1-3) Piperacillin Sod/Tazobactam 100 mls @ 200 mls/hr 04/13/20 15:00 04/17/20 16 :01 Sod 3.375 gm/ Sodium Chloride IVPB 100 mls 0300,0900,1500,2100 MARIANA Administration Potassium Chloride 40 meq/ 1,020 mls @ 100 mls/hr 04/14/20 13:15 04/17/20 16:57 Sodium Chloride IV 1,020 mls .[id number] MARIANA Administration Levetiracetam 500 mg 04/14/20 21:00 04/17/20 10:39 Levetiracetam 500 Mg Tab PO 500 mg BID [facility] Administration Megestrol Acetate 80 mg 04/16/20 21:00 04/17/20 10:39 Megestrol Acetate 40 Mg Tab PO 80 mg BID [facility] Administration Pantoprazole Sodium 40 mg 04/13/20 09:00 04/17/20 10:39 Pantoprazole 40 Mg Tab PO 40 mg DAILY [facility] Administration Polyethylene Glycol 17 gm 04/14/20 21:00 04/17/20 10:40 Polyethylene Glycol 3350 17 Gm Packet PER TUBE Not Given BID [facility] Promethazine HCl 12.5 mg 04/14/20 13:58 04/16/20 21:16 Promethazine 25 Mg Tab PO 12.5 mg Q6H PRN Administration Nausea/Vomiting Senna/Docusate Sodium 2 tab 04/12/20 21:00 04/17/20 10:40 Senokot S 8.6-50 Mg Tab PO Not Given BID [facility] Hospitalist Exam Vitals: Vital Signs (12 hours) Temp Pulse Resp BP Pulse Ox 04/17/20 16:00 99.3 F 117 H 18 119/73 98 04/17/20 12:17 98.0 F 125 H 20 118/89 95 04/17/20 08:00 98 04/17/20 07:35 99.2 F 112 H 18 115/85 98 Weight Admit Weight 118 lb Weight 118 lb General Appearance: NAD, awake alert Eye: PERRL, anicteric sclera ENT: normocephalic atraumatic, no oropharyngeal lesions Neck: supple, symmetric, no JVD, no thyromegaly, no lymphadenopathy Heart: RRR, no gallops, no rubs, normal peripheral pulses Heart - other findings: S1, S2 Respiratory: CTAB, no wheezes, no rales, no ronchi, normal chest expansion, no tachypnea Gastrointestinal: soft, non-tender, non-distended, normal bowel sounds, no palpable masses Extremities: no cyanosis, no clubbing, no edema Skin: normal turgor Neurological: cranial nerve grossly intact, no new deficit Musculoskeletal: normal tone, generalized weakness Psychiatric: normal affect, A&O x 3 Hosp A/P (1) Nausea & vomiting Code(s): R11.2 - NAUSEA WITH VOMITING, UNSPECIFIED Status: Acute Plan: Resolving, advance diet as tolerated (2) Astrocytoma brain tumor Code(s): C71.9 - MALIGNANT NEOPLASM OF BRAIN, UNSPECIFIED Status: Acute Plan: f/u with medical oncology as outpt (3) Colitis Code(s): K52.9 - NONINFECTIVE GASTROENTERITIS AND COLITIS, UNSPECIFIED Status: Acute (4) Constipated Code(s): K59.00 - CONSTIPATION, UNSPECIFIED Status: Chronic Qualifiers: Constipation type: slow transit constipation Qualified Code(s): K59.01 - Slow transit constipation Plan: Resolving (5) Hypokalemia Code(s): E87.6 - HYPOKALEMIA Status: Acute Plan: Resolving (6) Protein-calorie malnutrition, moderate Code(s): E44.0 - MODERATE PROTEIN-CALORIE MALNUTRITION Status: Chronic Plan: Continue Megace/Ensure/Regular diet - Plan plan discussed w/ family, PT/OT, social welfare research worker, out of bed/ambulate, DVT proph w/SCDs Stable currently D/C Zosyn Change NS with KCL IVF's Hold laxatives OOB/ambulate with PT Advance to Regular diet, Ensure Enlive TID Likely home in 24h
[2020-04-17] MEDS ORDERED: Clopidogrel Bisulfate 75 MG TAB ONE (22:31)
[2020-04-18 02:23] LABS: Band 3 % (5-11); Hemoglobin 8.7 g/dL (12.0-16.0); Hypochromia SLIGHT = 6-15 cells (100X) (0-5/hpf); Lymphocytes 8 % (21-51); MDiff Complete? YES; Mean Corpuscular HGB CONC 32.9 g/dL (32.0-36.0); Mean Platelet Volume 11.6 fL (7.4-10.4); Monocytes 16 % (0-10); Neutrophil 73 % (42-75); Platelet Count 44 thou/uL (130-400); Platelet Morphology Comment Appears Decreased; RBC Distribution Width 17.6 % (11.5-14.5); Red Blood Cell (RBC) Count 2.63 mill/uL (4.20-5.40)
[2020-04-18 02:25] LABS: Anion Gap 10 mmol/L (10-20); BUN (Urea Nitrogen) Less than 4 mg/dL (7.0-18.7); Calc. Creatinine Clearance 96 mL/min (70-130); Calcium 7.4 mg/dL (7.8-10.44); Carbon Dioxide 23 mmol/L (22-29); Chloride 107 mmol/L (98-107); Glucose 95 mg/dL (70-105); Magnesium 1.1 mg/dL (1.6-2.6); Potassium 4.2 mmol/L (3.5-5.1); Sodium 136 mmol/L (136-145)
--- NOTE | 2020-04-18 02:28 | PDOC.EVN ---
Event Note - Event Note Event Note: Nursing called to report patient tachycardic. Reviewed previous labs and reports. Persistent tachycardia since 04/15. Instructed POC glucose. A: patient reports fatigue with ambulation, she thinks its her situation. denies chest pain and swelling to LEs No cough or hemoptysis S1S2, tachycardia, no M/R/G Lungs clear, Sp02 WNL She has SCDs, pancytopenia Wells PE score mod risk, recently on Lomustine. Ordered STAT EKG, CMP, CBC, Mag and DD, Trop Discussed plan with Dr. Ritter.
[2020-04-18] MEDS ORDERED: Magnesium 2 GM/50 ML 2 GM in Premix Bag 1 BAG IVPB SCH (02:30)
[2020-04-18] MEDS: Potassium Chloride 40 MEQ in Sodium Chloride 0.45% 1,000 ML IV SCH ×2 (03:28→16:26)
[2020-04-18 03:31] LABS: Troponin I Less than 0.010 ng/mL (< 0.028)
--- NOTE | 2020-04-18 07:55 | CT ---
PRELIMINARY REPORT/[facility]/EMERGENCY AFTER HOURS PROCEDURE: This report was discussed with Nita Hendrix RN by An mehta on Apr 18, 2020 04:07:00 TELE MARKETING EXECUTIVE. Ramiro le electronically signed by An mehta on April 18, 2020 4:09:16 AM TELE MARKETING EXECUTIVE EXAM: CTA Chest with Intravenous Contrast CLINICAL HISTORY: F50, persistent tachycardia, rule out PE TECHNIQUE: Axial CTA images of the chest with intravenous contrast. Three-dimensional MIP/volume rend ered reformations were performed. CONTRAST: With; ISOVUE 370; 47mL COMPARISON: None provided. FINDINGS: PULMONARY ARTERIES Adequate opacification of the pulmonary arteries. Filling defect to the right lowe r lobe secondary to PE, axial series image number 60? AORTA No thoracic aortic aneurysm or dissection. LUNGS The lungs are clear. No pulmonary mass. No focal airspace consolidation. PLEURAL SPACES No pleural effusion. No pneumothorax. HEART AND MEDIASTINUM RV?LV ratio is less than 1, no heart strain. LYMPH NODES No lymphadenopathy. BONES No focal osseous abnormality or acute fracture. CHEST WALL AND UPPER ABDOMEN Images through the upper abdomen are unremarkable. The chest wall is unr emarkable. IMPRESSION: Single pulmonary embolus to the right lower lobe. There is no associated heart strain. ELECTRONICALLY SIGNED BY: Aylin Ramirez MD Apr 18, 2020 4:04:36 AM TELE MARKETING EXECUTIVE FINAL REPORT CT ANGIOGRAM OF THE CHEST: HISTORY: Persistent tachycardia. Evaluate for pulmonary artery embolism. COMPARISON: None. TECHNIQUE: CT angiogram of the chest is performed in the axial plane. Three-dimensional reformatted images are s ubmitted for interpretation. FINDINGS: Mediastinum: No mass, lymphadenopathy or hematoma. HEART: Normal size. No significant pericardial fluid. Aorta: No aneurysm or dissection Upper solid abdominal viscera: No abnormality enhancement. Trachea and central bronchi: Patent. Pleural spaces: No effusion. Lung parenchyma: No masses or consolidation. Pneumothorax: None. Osseous structures: No lytic or blastic lesions. Pulmonary arteries:Adequate contrast opacification pulmonary arterial system to the level of the segm ental arteries. There is a filling defect involving the right lower lobe segmental artery. No evidence of filling defects in the left pulmonary arterial system. IMPRESSION: 1. This report is in agreement with the initial report by [facility]. 2. Filling defect involving a segmental branch of the right lower lobe pulmonary arterial system.. Transcribed Date/Time: 04/18/2020 8:16 AM
[2020-04-18] MEDS ORDERED: Apixaban 5 MG TAB PO SCH (09:15)
[2020-04-18] MEDS: Polyethylene Glycol 3350 17 GM Packet PER TUBE SCH ×2 (09:31→20:55)
[2020-04-18] MEDS: Senokot S 8.6-50 MG TAB PO SCH ×2 (09:31→20:55)
[2020-04-18] MEDS: Megestrol Acetate 40 MG TAB PO SCH ×2 (09:32→20:54)
[2020-04-18] MEDS: levETIRAcetam 500 MG TAB PO SCH ×2 (09:32→20:54)
--- NOTE | 2020-04-18 10:03 | PDOC.HOSPP ---
- Subjective Encounter Date: 04/18/20 Encounter Time: 09:30 Subjective: f/u for Astrocytoma/deconditioning with apparent RLL PE discovered last pm when pt was noted tachycardic. Pt states she was asleep and states she did not know anything was wrong and denied any SOB/CP. - Objective Vital Signs & Weight: Vital Signs (12 hours) Temp Pulse Resp BP Pulse Ox 04/18/20 05:17 98.4 F 112 H 16 115/80 99 04/18/20 04:30 98.6 F 109 H 16 111/77 99 04/18/20 00:53 98.3 F 108 H 20 113/83 100 Weight Admit Weight 118 lb Weight 118 lb I&O: 04/17/20 04/18/20 04/19/20 06:59 06:59 06:59 Intake Total 1800 4470 Balance 1800 4470 Result Diagrams: 04/18/20 01:52 04/18/20 01:52 Additional Labs: Accuchecks 04/18/20 01:43 POC Glucose 92 Microbiology 04/16/20 21:28 Urine clean catch Urine Culture - Preliminary NO GROWTH AT 12 HOURS 04/12/20 14:04 Urine voided Urine Culture - Preliminary NO GROWTH AT 12 HOURS 04/12/20 13:06 Venous blood - Right Arm Blood Culture - Preliminary NO GROWTH AT 48 HOURS 04/12/20 13:06 Venous blood - Left Arm Blood Culture - Preliminary NO GROWTH AT 48 HOURS Laboratory Tests 04/12/20 04/12/20 04/12/20 13:06 13:06 23:20 WBC 6.9 Hgb 9.1 L Plt Count 81 L Potassium 3.1 L SARS-CoV-2 RNA ([facility]) Not Detected 04/13/20 04/13/20 06:14 06:14 WBC 4.0 L Hgb 6.7 L Plt Count 58 L Potassium 2.6 L* SARS-CoV-2 RNA ([facility]) Laboratory Tests 04/18/20 01:52 Magnesium 1.1 L Radiology Reviewed by me: Yes (CTA chest - RLL PE) EKG Reviewed by me: Yes (Tele - Sinus tach in 105's) Hospitalist ROS - Medication Medications: Active Medications Generic Name Dose Route Start Last Admin Trade Name Freq PRN Reason Stop Dose Admin Acetaminophen 650 mg 04/12/20 17:47 04/14/20 14:55 Acetaminophen 325 Mg Tab PO 650 mg Q4H PRN Administration Headache/Fever/Mild Pain (1-3) Apixaban 5 mg 04/18/20 09:15 04/18/20 09:32 Apixaban 5 Mg Tab PO 04/18/20 12:00 5 mg NOW MARIANA Administration Levetiracetam 500 mg 04/14/20 21:00 04/18/20 09:32 Levetiracetam 500 Mg Tab PO 500 mg BID [facility] Administration Megestrol Acetate 80 mg 04/16/20 21:00 04/18/20 09:32 Megestrol Acetate 40 Mg Tab PO 80 mg BID [facility] Administration Pantoprazole Sodium 40 mg 04/13/20 09:00 04/18/20 09:32 Pantoprazole 40 Mg Tab PO 40 mg DAILY [facility] Administration Polyethylene Glycol 17 gm 04/14/20 21:00 04/18/20 09:31 Polyethylene Glycol 3350 17 Gm Packet PER TUBE Not Given BID [facility] Promethazine HCl 12.5 mg 04/14/20 13:58 04/16/20 21:16 Promethazine 25 Mg Tab PO 12.5 mg Q6H PRN Administration Nausea/Vomiting Senna/Docusate Sodium 2 tab 04/12/20 21:00 04/18/20 09:31 Senokot S 8.6-50 Mg Tab PO Not Given BID [facility] Hospitalist Exam Vitals: Vital Signs (12 hours) Temp Pulse Resp BP Pulse Ox 04/18/20 05:17 98.4 F 112 H 16 115/80 99 04/18/20 04:30 98.6 F 109 H 16 111/77 99 04/18/20 00:53 98.3 F 108 H 20 113/83 100 Weight Admit Weight 118 lb Weight 118 lb General Appearance: NAD, awake alert Eye: PERRL, anicteric sclera ENT: normocephalic atraumatic, no oropharyngeal lesions Neck: supple, symmetric, no JVD, no thyromegaly, no lymphadenopathy Heart: no murmur, no gallops, no rubs, normal peripheral pulses Heart - other findings: S1, S2 tachycardic Respiratory: CTAB, no wheezes, no rales, no ronchi, normal chest expansion Gastrointestinal: soft, non-tender, non-distended, normal bowel sounds, no palp able masses, no hepatomegaly Extremities: no cyanosis, no clubbing, no edema Skin: normal turgor, no lesions Neurological: cranial nerve grossly intact, no new deficit Musculoskeletal: normal tone Psychiatric: normal affect, A&O x 3 Hosp A/P (1) Pulmonary embolism Code(s): I26.99 - OTHER PULMONARY EMBOLISM WITHOUT ACUTE COR PULMONALE Status: Acute Plan: RLL involvement, start Eliquis 5mg BID, monitor CBC/platelets closely given pancytopenia due to chemotherapy, no O2 requirement currently (2) Sinus tachycardia Code(s): R00.0 - TACHYCARDIA, UNSPECIFIED Status: Acute Plan: Likely due to #1, supportive mgmt as outlined in #1 (3) Nausea & vomiting Code(s): R11.2 - NAUSEA WITH VOMITING, UNSPECIFIED Status: Acute Plan: Resolved (4) Astrocytoma brain tumor Code(s): C71.9 - MALIGNANT NEOPLASM OF BRAIN, UNSPECIFIED Status: Acute Plan: Follow up with medical oncology as outpt for further mgmt (5) Colitis Code(s): K52.9 - NONINFECTIVE GASTROENTERITIS AND COLITIS, UNSPECIFIED Status: Acute Plan: Resolved (6) Constipated Code(s): K59.00 - CONSTIPATION, UNSPECIFIED Status: Chronic Qualifiers: Constipation type: slow transit constipation Qualified Code(s): K59.01 - Slow transit constipation Plan: Resolved (7) Hypokalemia Code(s): E87.6 - HYPOKALEMIA Status: Acute (8) Protein-calorie malnutrition, moderate Code(s): E44.0 - MODERATE PROTEIN-CALORIE MALNUTRITION Status: Chronic - Plan PT/OT, social insurance specialist, out of bed/ambulate Stable currently D/C Zosyn Saline lock IVF's Hold laxatives OOB/ambulate with PT Start Eliquis 5mg BID Advance to Regular diet, Ensure Enlive TID Continue Megace AM lab: CBC, Mg++ Discussed anticoagulation with Dr. Beatty, oncology Likely home in 24h if platelets stable
[2020-04-18] MEDS ORDERED: Iopamidol-370 76% 500 ML 1 ML ONE (13:22)
--- NOTE | 2020-04-18 17:07 | EKG ---
Test Reason : STAT Blood Pressure : / mmHG Vent. Rate : 112 BPM Atrial Rate : 112 BPM P-R Int : 132 ms QRS Dur : 066 ms QT Int : 316 ms P-R-T Axes : 043 056 053 degrees QTc Int : 431 ms Sinus tachycardia Anterolateral infarct , age undetermined Abnormal ECG No previous ECGs available Confirmed by DR. Aleks CORDERO (3) on 04/18/2020 5:07:03 PM Referred By: Khanh LUJAN Confirmed By:DR. Aleks CORDERO
[2020-04-18] MEDS: Apixaban 5 MG TAB PO SCH (20:54)
[2020-04-19 05:41] LABS: Band 8 % (5-11); Eosinophils 1 % (0-10); Hemoglobin 8.3 g/dL (12.0-16.0); Lymphocytes 7 % (21-51); MDiff Complete? YES; Mean Corpuscular HGB CONC 31.9 g/dL (32.0-36.0); Mean Corpuscular Hemoglobin 32.3 pg (27.0-31.0); Mean Platelet Volume 12.3 fL (7.4-10.4); Monocytes 17 % (0-10); Neutrophil 67 % (42-75); Platelet Count 43 thou/uL (130-400); Platelet Morphology Comment Appears Decreased; RBC Distribution Width 17.7 % (11.5-14.5); Red Blood Cell (RBC) Count 2.56 mill/uL (4.20-5.40); Tear Drops SLIGHT = 2-5 cells (100X) (0-1/hpf)
[2020-04-19] MEDS: Megestrol Acetate 40 MG TAB PO SCH ×2 (08:53→20:18)
[2020-04-19] MEDS: Senokot S 8.6-50 MG TAB PO SCH ×2 (08:54→20:17)
[2020-04-19] MEDS: Polyethylene Glycol 3350 17 GM Packet PER TUBE SCH ×2 (08:54→20:17)
[2020-04-19] MEDS: Apixaban 5 MG TAB PO SCH ×2 (08:55→20:18)
[2020-04-19] MEDS: levETIRAcetam 500 MG TAB PO SCH ×2 (08:55→20:18)
--- NOTE | 2020-04-19 10:36 | PDOC.HOSPP ---
- Subjective Encounter Date: 04/19/20 Encounter Time: 10:20 Subjective: f/u for PE/Astrocytoma currently on Eliquis. Tele showing persistent tachycardia but pt denies any CP. Feels weak when ambulating in room and mild SOB. - Objective Vital Signs & Weight: Vital Signs (12 hours) Temp Pulse Resp BP Pulse Ox 04/19/20 09:00 98 04/19/20 08:50 97.5 F L 121 H 16 142/101 H 98 04/19/20 03:12 99.4 F 108 H 16 116/79 96 Weight Admit Weight 118 lb Weight 118 lb I&O: 04/18/20 04/19/20 04/20/20 06:59 06:59 06:59 Intake Total 4470 1020 480 Balance 4470 1020 480 Result Diagrams: 04/19/20 03:54 04/18/20 01:52 Additional Labs: Microbiology 04/16/20 21:28 Urine clean catch Urine Culture - Preliminary NO GROWTH AT 12 HOURS 04/12/20 14:04 Urine voided Urine Culture - Preliminary NO GROWTH AT 12 HOURS 04/12/20 13:06 Venous blood - Right Arm Blood Culture - Preliminary NO GROWTH AT 48 HOURS 04/12/20 13:06 Venous blood - Left Arm Blood Culture - Preliminary NO GROWTH AT 48 HOURS Laboratory Tests 04/12/20 04/12/20 04/12/20 13:06 13:06 23:20 WBC 6.9 Hgb 9.1 L Plt Count 81 L Potassium 3.1 L Magnesium SARS-CoV-2 RNA ([facility]) Not Detected 04/13/20 04/13/20 04/18/20 06:14 06:14 01:52 WBC 4.0 L Hgb 6.7 L Plt Count 58 L Potassium 2.6 L* Magnesium 1.1 L SARS-CoV-2 RNA ([facility]) EKG Reviewed by me: Yes (Tele - Sinus tachycardia in 110's) Hospitalist ROS - Medication Medications: Active Medications Generic Name Dose Route Start Last Admin Trade Name Freq PRN Reason Stop Dose Admin Acetaminophen 650 mg 04/12/20 17:47 04/14/20 14:55 Acetaminophen 325 Mg Tab PO 650 mg Q4H PRN Administration Headache/Fever/Mild Pain (1-3) Apixaban 5 mg 04/18/20 21:00 04/19/20 08:55 Apixaban 5 Mg Tab PO 5 mg BID [facility] Administration Levetiracetam 500 mg 04/14/20 21:00 04/19/20 08:55 Levetiracetam 500 Mg Tab PO 500 mg BID [facility] Administration Megestrol Acetate 80 mg 04/16/20 21:00 04/19/20 08:53 Megestrol Acetate 40 Mg Tab PO 80 mg BID [facility] Administration Pantoprazole Sodium 40 mg 04/13/20 09:00 04/19/20 08:54 Pantoprazole 40 Mg Tab PO 40 mg DAILY [facility] Administration Polyethylene Glycol 17 gm 04/14/20 21:00 04/19/20 08:54 Polyethylene Glycol 3350 17 Gm Packet PER TUBE Not Given BID [facility] Promethazine HCl 12.5 mg 04/14/20 13:58 04/16/20 21:16 Promethazine 25 Mg Tab PO 12.5 mg Q6H PRN Administration Nausea/Vomiting Senna/Docusate Sodium 2 tab 04/12/20 21:00 04/19/20 08:54 Senokot S 8.6-50 Mg Tab PO Not Given BID [facility] Hospitalist Exam Vitals: Vital Signs (12 hours) Temp Pulse Resp BP Pulse Ox 04/19/20 09:00 98 04/19/20 08:50 97.5 F L 121 H 16 142/101 H 98 04/19/20 03:12 99.4 F 108 H 16 116/79 96 Weight Admit Weight 118 lb Weight 118 lb General Appearance: NAD, awake alert Eye: PERRL, anicteric sclera ENT: normocephalic atraumatic, no oropharyngeal lesions Neck: supple, symmetric, no JVD, no thyromegaly, no lymphadenopathy Heart: no gallops, no rubs, normal peripheral pulses Heart - other findings: S1, S2 tachycardic Respiratory: CTAB, no wheezes, no rales, no ronchi, normal chest expansion, no tachypnea Gastrointestinal: soft, non-tender, non-distended, normal bowel sounds, no palpable masses Extremities: no cyanosis, no clubbing, no edema Skin: normal turgor Neurological: cranial nerve grossly intact, no new deficit Musculoskeletal: normal tone, generalized weakness Psychiatric: normal affect, A&O x 3 Hosp A/P (1) Pulmonary embolism Code(s): I26.99 - OTHER PULMONARY EMBOLISM WITHOUT ACUTE COR PULMONALE Status: Acute Plan: RLL involvement treated with Eliquis, continue current dosing given pancytopenia/thrombocytopenia, continue to observe on tele unit another 24h (2) Sinus tachycardia Code(s): R00.0 - TACHYCARDIA, UNSPECIFIED Status: Acute Plan: Persistent and exacerbated with activity, continue tele monitoring another 24h (3) Nausea & vomiting Code(s): R11.2 - NAUSEA WITH VOMITING, UNSPECIFIED Status: Acute (4) Astrocytoma brain tumor Code(s): C71.9 - MALIGNANT NEOPLASM OF BRAIN, UNSPECIFIED Status: Acute (5) Colitis Code(s): K52.9 - NONINFECTIVE GASTROENTERITIS AND COLITIS, UNSPECIFIED Status: Acute (6) Constipated Code(s): K59.00 - CONSTIPATION, UNSPECIFIED Status: Chronic Qualifiers: Constipation type: slow transit constipation Qualified Code(s): K59.01 - Slow transit constipation (7) Hypokalemia Code(s): E87.6 - HYPOKALEMIA Status: Acute (8) Protein-calorie malnutrition, moderate Code(s): E44.0 - MODERATE PROTEIN-CALORIE MALNUTRITION Status: Chronic - Plan PT/OT, social worker clinical, out of bed/ambulate, DVT proph w/SCDs Stable currently D/C Zosyn Saline lock IVF's Hold laxatives OOB/ambulate with PT Start Eliquis 5mg BID, lower starting dose due to thrombocytopenia Advance to Regular diet, Ensure Enlive TID Continue Megace AM lab: CBC Discussed anticoagulation with Dr. Beatty, oncology Likely home in 24h if platelets stable
[2020-04-20 06:11] LABS: Anisocytosis MODERATE=16-30 cells (100X) (0-5/hpf); Band 13 % (5-11); Hemoglobin 8.1 g/dL (12.0-16.0); Lymphocytes 15 % (21-51); MDiff Complete? YES; Mean Corpuscular Hemoglobin 33.4 pg (27.0-31.0); Mean Platelet Volume 11.5 fL (7.4-10.4); Monocytes 9 % (0-10); Neutrophil 63 % (42-75); Platelet Count 45 thou/uL (130-400); Platelet Morphology Comment Appears Decreased; RBC Distribution Width 17.6 % (11.5-14.5); Red Blood Cell (RBC) Count 2.42 mill/uL (4.20-5.40); White Blood Cell (WBC) Count 2.8 thou/uL (4.8-10.8)
[2020-04-20] MEDS: Megestrol Acetate 40 MG TAB PO SCH ×2 (08:56→20:57)
[2020-04-20] MEDS: levETIRAcetam 500 MG TAB PO SCH ×2 (08:56→20:57)
[2020-04-20] MEDS: Polyethylene Glycol 3350 17 GM Packet PER TUBE SCH ×2 (08:56→20:58)
[2020-04-20] MEDS: Apixaban 5 MG TAB PO SCH ×2 (08:56→20:57)
[2020-04-20] MEDS: Senokot S 8.6-50 MG TAB PO SCH ×2 (08:56→20:58)
--- NOTE | 2020-04-20 14:09 | PDOC.HOSPP ---
- Subjective Encounter Date: 04/20/20 Encounter Time: 14:06 Subjective: Ms. Martinez was seen today in follow-up of Astrocytoma and nausea and vomiting. She says she is not yet ready to go home. Her heart rate has been noted to be elevated with only minimal exertion. - Objective Vital Signs & Weight: Vital Signs (12 hours) Temp Pulse Resp BP Pulse Ox 04/20/20 11:02 98.9 F 119 H 17 114/80 98 04/20/20 07:33 98.6 F 112 H 18 120/80 97 04/20/20 03:58 98.3 F 106 H 20 104/71 96 Weight Admit Weight 118 lb Weight 118 lb I&O: 04/19/20 04/20/20 04/21/20 06:59 06:59 06:59 Intake Total 1020 1780 Output Total 2 Balance 1020 1778 Result Diagrams: 04/20/20 03:42 04/18/20 01:52 Hospitalist ROS - Medication Medications: Active Medications Generic Name Dose Route Start Last Admin Trade Name Freq PRN Reason Stop Dose Admin Acetaminophen 650 mg 04/12/20 17:47 04/14/20 14:55 Acetaminophen 325 Mg Tab PO 650 mg Q4H PRN Administration Headache/Fever/Mild Pain (1-3) Apixaban 5 mg 04/18/20 21:00 04/20/20 08:56 Apixaban 5 Mg Tab PO 5 mg BID MARIANA Administration Levetiracetam 500 mg 04/14/20 21:00 04/20/20 08:56 Levetiracetam 500 Mg Tab PO 500 mg BID MARIANA Administration Megestrol Acetate 80 mg 04/16/20 21:00 04/20/20 08:56 Megestrol Acetate 40 Mg Tab PO 80 mg BID MARIANA Administration Pantoprazole Sodium 40 mg 04/13/20 09:00 04/20/20 08:56 Pantoprazole 40 Mg Tab PO 40 mg DAILY MARIANA Administration Polyethylene Glycol 17 gm 04/14/20 21:00 04/20/20 08:56 Polyethylene Glycol 3350 17 Gm Packet PER TUBE Not Given BID MARIANA Promethazine HCl 12.5 mg 04/14/20 13:58 04/16/20 21:16 Promethazine 25 Mg Tab PO 12.5 mg Q6H PRN Administration Nausea/Vomiting Senna/Docusate Sodium 2 tab 04/12/20 21:00 04/20/20 08:56 Senokot S 8.6-50 Mg Tab PO Not Given BID MARIANA Hospitalist Exam Vitals: Vital Signs (12 hours) Temp Pulse Resp BP Pulse Ox 04/20/20 11:02 98.9 F 119 H 17 114/80 98 04/20/20 07:33 98.6 F 112 H 18 120/80 97 04/20/20 03:58 98.3 F 106 H 20 104/71 96 Weight Admit Weight 118 lb Weight 118 lb General Appearance: NAD, awake alert Eye: PERRL, anicteric sclera Heart: no murmur (heart rate is elevated, but regular), no gallops, no rubs, normal peripheral pulses Respiratory: CTAB, no wheezes, no rales, no ronchi, normal chest expansion, no tachypnea, normal percussion Gastrointestinal: soft, non-tender, non-distended, normal bowel sounds, no palpable masses, no hepatomegaly Extremities: no cyanosis, no edema Hosp A/P (1) Pulmonary embolism Code(s): I26.99 - OTHER PULMONARY EMBOLISM WITHOUT ACUTE COR PULMONALE Status: Acute (2) Nausea & vomiting Code(s): R11.2 - NAUSEA WITH VOMITING, UNSPECIFIED Status: Acute (3) Astrocytoma brain tumor Code(s): C71.9 - MALIGNANT NEOPLASM OF BRAIN, UNSPECIFIED Status: Acute (4) Colitis Code(s): K52.9 - NONINFECTIVE GASTROENTERITIS AND COLITIS, UNSPECIFIED Status: Acute (5) Sinus tachycardia Code(s): R00.0 - TACHYCARDIA, UNSPECIFIED Status: Acute (6) Constipated Code(s): K59.00 - CONSTIPATION, UNSPECIFIED Status: Chronic Qualifiers: Constipation type: slow transit constipation Qualified Code(s): K59.01 - Slow transit constipation (7) Protein-calorie malnutrition, moderate Code(s): E44.0 - MODERATE PROTEIN-CALORIE MALNUTRITION Status: Chronic - Plan * Acute Pulmonary Embolus- continue Eliquis * Tachycardia- Suspect due to low reserve, and and PE- will continue to monitor * Nausea and vomiting- resolved * Astrocytoma- will resume treatment as an outpatient
[2020-04-21] MEDS: Apixaban 5 MG TAB PO SCH ×2 (09:07→20:43)
[2020-04-21] MEDS: Megestrol Acetate 40 MG TAB PO SCH ×2 (09:07→20:43)
[2020-04-21] MEDS: levETIRAcetam 500 MG TAB PO SCH ×2 (09:07→20:43)
[2020-04-21] MEDS: Polyethylene Glycol 3350 17 GM Packet PER TUBE SCH ×2 (09:08→20:44)
[2020-04-21] MEDS: Senokot S 8.6-50 MG TAB PO SCH ×2 (09:08→20:44)
--- NOTE | 2020-04-21 11:00 | PDOC.HOSPP ---
- Subjective Encounter Date: 04/21/20 Encounter Time: 10:58 Subjective: Ms. Martinez was seen today in follow-up of Pulmonary Embolus and tachycardia. She says she feels better today. Her appetite has improved some. - Objective Vital Signs & Weight: Vital Signs (12 hours) Temp Pulse Resp BP Pulse Ox 04/21/20 07:14 99.4 F 106 H 17 141/95 H 98 04/21/20 03:00 99.7 F H 109 H 12 133/91 H 96 Weight Admit Weight 118 lb Weight 118 lb I&O: 04/20/20 04/21/20 04/22/20 06:59 06:59 06:59 Intake Total 1780 480 Output Total 2 300 Balance 1778 180 Result Diagrams: 04/20/20 03:42 04/18/20 01:52 Hospitalist ROS - Medication Medications: Active Medications Generic Name Dose Route Start Last Admin Trade Name Freq PRN Reason Stop Dose Admin Acetaminophen 650 mg 04/12/20 17:47 04/14/20 14:55 Acetaminophen 325 Mg Tab PO 650 mg Q4H PRN Administration Headache/Fever/Mild Pain (1-3) Apixaban 5 mg 04/18/20 21:00 04/21/20 09:07 Apixaban 5 Mg Tab PO 5 mg BID MARIANA Administration Levetiracetam 500 mg 04/14/20 21:00 04/21/20 09:07 Levetiracetam 500 Mg Tab PO 500 mg BID MARIANA Administration Megestrol Acetate 80 mg 04/16/20 21:00 04/21/20 09:07 Megestrol Acetate 40 Mg Tab PO 80 mg BID MARIANA Administration Pantoprazole Sodium 40 mg 04/13/20 09:00 04/21/20 09:07 Pantoprazole 40 Mg Tab PO 40 mg DAILY MARIANA Administration Polyethylene Glycol 17 gm 04/14/20 21:00 04/21/20 09:08 Polyethylene Glycol 3350 17 Gm Packet PER TUBE Not Given BID [facility] Promethazine HCl 12.5 mg 04/14/20 13:58 04/16/20 21:16 Promethazine 25 Mg Tab PO 12.5 mg Q6H PRN Administration Nausea/Vomiting Senna/Docusate Sodium 2 tab 04/12/20 21:00 04/21/20 09:08 Senokot S 8.6-50 Mg Tab PO Not Given BID [facility] Hospitalist Exam Vitals: Vital Signs (12 hours) Temp Pulse Resp BP Pulse Ox 04/21/20 07:14 99.4 F 106 H 17 141/95 H 98 04/21/20 03:00 99.7 F H 109 H 12 133/91 H 96 Weight Admit Weight 118 lb Weight 118 lb Eye: PERRL, anicteric sclera Heart: RRR (with the exception of tachycardia), no murmur, no gallops, no rubs Respiratory: rales Gastrointestinal: soft, non-tender, non-distended, normal bowel sounds, no palpable masses, no hepatomegaly Extremities: no cyanosis, no edema Hosp A/P (1) Pulmonary embolism Code(s): I26.99 - OTHER PULMONARY EMBOLISM WITHOUT ACUTE COR PULMONALE Status: Acute (2) Nausea & vomiting Code(s): R11.2 - NAUSEA WITH VOMITING, UNSPECIFIED Status: Acute (3) Astrocytoma brain tumor Code(s): C71.9 - MALIGNANT NEOPLASM OF BRAIN, UNSPECIFIED Status: Acute (4) Colitis Code(s): K52.9 - NONINFECTIVE GASTROENTERITIS AND COLITIS, UNSPECIFIED Status: Acute (5) Sinus tachycardia Code(s): R00.0 - TACHYCARDIA, UNSPECIFIED Status: Acute (6) Constipated Code(s): K59.00 - CONSTIPATION, UNSPECIFIED Status: Chronic Qualifiers: Constipation type: slow transit constipation Qualified Code(s): K59.01 - Slow transit constipation (7) Protein-calorie malnutrition, moderate Code(s): E44.0 - MODERATE PROTEIN-CALORIE MALNUTRITION Status: Chronic - Plan * Acute Pulmonary Embolus- continue Eliquis * Tachycardia- Suspect due to low reserve, and and PE- she may also be volume d epleted- will start her on IV fluids, and re-assess * Nausea and vomiting- resolved * Astrocytoma- will resume treatment as an outpatient
[2020-04-21] MEDS: Lactated Ringer's 1,000 ML IV SCH ×2 (12:01→20:44)
[2020-04-21 12:29] LABS: Anion Gap 13 mmol/L (10-20); BUN (Urea Nitrogen) 8 mg/dL (7.0-18.7); Calc. Creatinine Clearance 82 mL/min (70-130); Calcium 7.7 mg/dL (7.8-10.44); Carbon Dioxide 20 mmol/L (22-29); Chloride 110 mmol/L (98-107); Glucose 87 mg/dL (70-105); Potassium 3.5 mmol/L (3.5-5.1); Sodium 139 mmol/L (136-145)
[2020-04-21 12:39] LABS: Anisocytosis MODERATE=16-30 cells (100X) (0-5/hpf); Band 12 % (5-11); Eosinophils 1 % (0-10); Hemoglobin 8.5 g/dL (12.0-16.0); Lymphocytes 15 % (21-51); MDiff Complete? YES; Mean Corpuscular HGB CONC 32.5 g/dL (32.0-36.0); Mean Corpuscular Hemoglobin 33.3 pg (27.0-31.0); Monocytes 23 % (0-10); Neutrophil 49 % (42-75); Platelet Count 42 thou/uL (130-400); Platelet Morphology Comment Appears Decreased; Poikilocytosis SLIGHT = 6-15 cells (100X) (0-5/hpf); RBC Distribution Width 17.5 % (11.5-14.5); Red Blood Cell (RBC) Count 2.55 mill/uL (4.20-5.40); White Blood Cell (WBC) Count 3.1 thou/uL (4.8-10.8)
[2020-04-22 05:03] LABS: Anion Gap 7 mmol/L (10-20); BUN (Urea Nitrogen) 7 mg/dL (7.0-18.7); Calc. Creatinine Clearance 87 mL/min (70-130); Calcium 8.1 mg/dL (7.8-10.44); Carbon Dioxide 26 mmol/L (22-29); Chloride 112 mmol/L (98-107); Glucose 92 mg/dL (70-105); Potassium 3.8 mmol/L (3.5-5.1); Sodium 141 mmol/L (136-145)
[2020-04-22 07:14] LABS: Hemoglobin 7.5 g/dL (12.0-16.0); Mean Corpuscular HGB CONC 33.4 g/dL (32.0-36.0); Mean Corpuscular Hemoglobin 34.4 pg (27.0-31.0); Platelet Count 41 thou/uL (130-400); RBC Distribution Width 17.4 % (11.5-14.5); Red Blood Cell (RBC) Count 2.18 mill/uL (4.20-5.40); White Blood Cell (WBC) Count 2.5 thou/uL (4.8-10.8)
[2020-04-22] MEDS: Megestrol Acetate 40 MG TAB PO SCH ×2 (09:10→21:31)
[2020-04-22] MEDS: levETIRAcetam 500 MG TAB PO SCH ×2 (09:11→21:31)
[2020-04-22] MEDS: Apixaban 5 MG TAB PO SCH ×2 (09:11→21:31)
[2020-04-22] MEDS: Senokot S 8.6-50 MG TAB PO SCH ×2 (09:11→21:32)
[2020-04-22] MEDS: Polyethylene Glycol 3350 17 GM Packet PER TUBE SCH ×2 (09:11→21:32)
[2020-04-22] MEDS: Lactated Ringer's 1,000 ML IV SCH ×2 (09:15→18:55)
[2020-04-22 09:39] LABS: Band 16 % (5-11); Lymphocytes 18 % (21-51); MDiff Complete? YES; Macrocytosis SLIGHT = 6-15 cells (100X) (0-5/hpf); Monocytes 22 % (0-10); Myelocyte 1 % (0-0); Neutrophil 43 % (42-75); Platelet Morphology Comment Appears Decreased; Polychromasia SLIGHT = 2-3 cells (100X) (0-2/hpf); Schistocytes SLIGHT = 2-5 cells (100X) (0-1/hpf)
--- NOTE | 2020-04-22 12:19 | PDOC.HOSPP ---
- Subjective Encounter Date: 04/22/20 Encounter Time: 12:18 Subjective: Ms. Martinez was seen today in follow-up of PE, and astrocytoma.She does not have any complaints today except for a mild sore throat. She is breathing fine. - Objective Vital Signs & Weight: Vital Signs (12 hours) Temp Pulse Resp BP Pulse Ox 04/22/20 11:28 98.3 F 110 H 16 128/86 99 04/22/20 07:50 98.2 F 100 17 126/85 97 04/22/20 07:35 97 04/22/20 03:14 99.1 F 108 H 14 126/90 96 Weight Admit Weight 118 lb Weight 118 lb I&O: 04/21/20 04/22/20 04/23/20 06:59 06:59 06:59 Intake Total 480 640 Output Total 300 420 Balance 180 220 Result Diagrams: 04/22/20 03:47 04/22/20 03:47 Hospitalist ROS - Medication Medications: Active Medications Generic Name Dose Route Start Last Admin Trade Name Freq PRN Reason Stop Dose Admin Acetaminophen 650 mg 04/12/20 17:47 04/14/20 14:55 Acetaminophen 325 Mg Tab PO 650 mg Q4H PRN Administration Headache/Fever/Mild Pain (1-3) Apixaban 5 mg 04/18/20 21:00 04/22/20 09:11 Apixaban 5 Mg Tab PO 5 mg BID MARIANA Administration Lactated Ringer's 1,000 mls @ 100 mls/hr 04/21/20 11:00 04/22/20 09:15 Lactated Ringer's IV 1,000 mls .Q10H MARIANA Administration Levetiracetam 500 mg 04/14/20 21:00 04/22/20 09:11 Levetiracetam 500 Mg Tab PO 500 mg BID MARIANA Administration Megestrol Acetate 80 mg 04/16/20 21:00 04/22/20 09:10 Megestrol Acetate 40 Mg Tab PO 80 mg BID MARIANA Administration Pantoprazole Sodium 40 mg 04/13/20 09:00 04/22/20 09:11 Pantoprazole 40 Mg Tab PO 40 mg DAILY MARIANA Administration Polyethylene Glycol 17 gm 04/14/20 21:00 04/22/20 09:11 Polyethylene Glycol 3350 17 Gm Packet PER TUBE Not Given BID MARIANA Promethazine HCl 12.5 mg 04/14/20 13:58 04/16/20 21:16 Promethazine 25 Mg Tab PO 12.5 mg Q6H PRN Administration Nausea/Vomiting Senna/Docusate Sodium 2 tab 04/12/20 21:00 04/22/20 09:11 Senokot S 8.6-50 Mg Tab PO Not Given BID MARIANA Hospitalist Exam Vitals: Vital Signs (12 hours) Temp Pulse Resp BP Pulse Ox 04/22/20 11:28 98.3 F 110 H 16 128/86 99 04/22/20 07:50 98.2 F 100 17 126/85 97 04/22/20 07:35 97 04/22/20 03:14 99.1 F 108 H 14 126/90 96 Weight Admit Weight 118 lb Weight 118 lb General Appearance: NAD, awake alert Eye: PERRL Heart: RRR, no murmur, no gallops, no rubs, normal peripheral pulses Respiratory: CTAB, no wheezes, no rales, no ronchi, normal chest expansion Gastrointestinal: soft, non-tender, non-distended, normal bowel sounds, no palpa ble masses, no hepatomegaly Extremities: no cyanosis, no edema Hosp A/P (1) Pulmonary embolism Code(s): I26.99 - OTHER PULMONARY EMBOLISM WITHOUT ACUTE COR PULMONALE Status: Acute (2) Nausea & vomiting Code(s): R11.2 - NAUSEA WITH VOMITING, UNSPECIFIED Status: Acute (3) Astrocytoma brain tumor Code(s): C71.9 - MALIGNANT NEOPLASM OF BRAIN, UNSPECIFIED Status: Acute (4) Colitis Code(s): K52.9 - NONINFECTIVE GASTROENTERITIS AND COLITIS, UNSPECIFIED Status: Acute (5) Sinus tachycardia Code(s): R00.0 - TACHYCARDIA, UNSPECIFIED Status: Acute (6) Constipated Code(s): K59.00 - CONSTIPATION, UNSPECIFIED Status: Chronic Qualifiers: Constipation type: slow transit constipation Qualified Code(s): K59.01 - Slow transit constipation (7) Protein-calorie malnutrition, moderate Code(s): E44.0 - MODERATE PROTEIN-CALORIE MALNUTRITION Status: Chronic - Plan * Acute Pulmonary Embolus- continue Eliquis- However due to the significant thrombocytopenia will discuss with Oncology if this is the best anticoagulant for her * Tachycardia- improving * Nausea and vomiting- resolved * Astrocytoma- will resume treatment as an outpatient * Hopefully home soon
--- NOTE | 2020-04-22 16:02 | PDOC.MOPN ---
Interval History: no complaints. Denies bleeding. Does have bruising on arms. No rash. - Vital Signs Vital Signs: Vital Signs (12 hours) Temp Pulse Resp BP Pulse Ox 04/22/20 11:28 98.3 F 110 H 16 128/86 99 04/22/20 07:50 98.2 F 100 17 126/85 97 04/22/20 07:35 97 Weight Admit Weight 118 lb Weight 118 lb - Physical Exam General: Alert HEENT: Mucous membr. moist/pink Lungs: Clear to auscultation Cardiovascular: Other (tachycardia) Abdomen: Normal bowel sounds Neurological: Normal speech - Labs Result Diagrams: 04/22/20 03:47 04/22/20 03:47 Lab results: Laboratory Results - last 24 hr 04/22/20 03:47: WBC 2.5 L, RBC 2.18 L, Hgb 7.5 L, Hct 22.5 L, MCV 103.0 H, MCH 34.4 H, MCHC 33.4, RDW 17.4 H, Plt Count 41 L, MPV 11.0 H, Neutrophils % (Manual) 43, Band Neuts % (Manual) 16 H, Lymphocytes % (Manual) 18 L, Monocytes % (Manual) 22 H, Myelocytes % 1 H, Lymphocytes # Not Reportable, Plt Morphology Comment Appears Decreased L, Polychromasia SLIGHT = 2-3 cells, Macrocytosis SLIGHT = 6-15 cells, Schistocytes SLIGHT = 2-5 cells 04/22/20 03:47: Sodium 141, Potassium 3.8, Chloride 112 H, Carbon Dioxide 26, Anion Gap 7 L, BUN 7, Creatinine 0.65, Estimated GFR (MDRD) Greater than 90, Glucose 92, Calcium 8.1 Status: lab reviewed by me A/P - Problem (1) Astrocytoma brain tumor Current Visit: Yes Code(s): C71.9 - MALIGNANT NEOPLASM OF BRAIN, UNSPECIFIED Status: Acute (2) Nausea & vomiting Current Visit: Yes Code(s): R11.2 - NAUSEA WITH VOMITING, UNSPECIFIED Status: Acute (3) Pulmonary embolism Current Visit: Yes Code(s): I26.99 - OTHER PULMONARY EMBOLISM WITHOUT ACUTE COR PULMONALE Status: Acute - Plan Plan: 1. continue low dose Eliquis for PE 2. monitor closely for bleeding 3. home with HR stable 4. follow-up labs once discharged.
--- NOTE | 2020-04-22 17:21 | EKG ---
Test Reason : Blood Pressure : / mmHG Vent. Rate : 119 BPM Atrial Rate : 119 BPM P-R Int : 138 ms QRS Dur : 054 ms QT Int : 288 ms P-R-T Axes : 017 -13 007 degrees QTc Int : 405 ms Sinus tachycardia Low voltage QRS Inferior infarct , age undetermined Cannot rule out Anterior infarct (cited on or before 18-APR-2020) Nonspecific ST-T changes Abnormal ECG When compared with ECG of 18-APR-2020 02:24, Inferior infarct is now Present T wave inversion now evident in Inferior leads Confirmed by DR. Aleks CORDERO ([id number]) on 04/22/2020 5:21:12 PM Referred By: RYAN Confirmed By:DR. Aleks CORDERO
[2020-04-23] MEDS: Lactated Ringer's 1,000 ML IV SCH (02:44)
[2020-04-23] MEDS: levETIRAcetam 500 MG TAB PO SCH (08:53)
[2020-04-23] MEDS: Apixaban 5 MG TAB PO SCH (08:53)
[2020-04-23] MEDS: Megestrol Acetate 40 MG TAB PO SCH (08:53)
[2020-04-23] MEDS: Senokot S 8.6-50 MG TAB PO SCH (08:54)
[2020-04-23] MEDS: Polyethylene Glycol 3350 17 GM Packet PER TUBE SCH (08:54)
[2020-04-23 09:32] LABS: Hemoglobin 8.6 g/dL (12.0-16.0); Mean Corpuscular HGB CONC 33.4 g/dL (32.0-36.0); Mean Corpuscular Hemoglobin 32.9 pg (27.0-31.0); Mean Corpuscular Volume 98.6 fL (78.0-98.0); Platelet Count 30 thou/uL (130-400); RBC Distribution Width 17.1 % (11.5-14.5); Red Blood Cell (RBC) Count 2.61 mill/uL (4.20-5.40); White Blood Cell (WBC) Count 3.5 thou/uL (4.8-10.8)
[2020-04-23 11:09] LABS: Band 14 % (5-11); Lymphocytes 10 % (21-51); MDiff Complete? YES; Monocytes 13 % (0-10); Neutrophil 62 % (42-75); Platelet Morphology Comment Appears Decreased; Polychromasia SLIGHT = 2-3 cells (100X) (0-2/hpf); Schistocytes SLIGHT = 2-5 cells (100X) (0-1/hpf); Spherocytes SLIGHT = 1-5 cells (100X) (None Seen); Tear Drops SLIGHT = 2-5 cells (100X) (0-1/hpf)
--- NOTE | 2020-04-23 11:28 | PDOC.HOSPP ---
- Subjective Encounter Date: 04/23/20 Encounter Time: 11:26 Subjective: Ms. Martinez was seen today in follow-up of PE, and nausea and vomiting. She had a little nausea this morning, but otherwise she has been ok. Her eart rate has also improved. - Objective Vital Signs & Weight: Vital Signs (12 hours) Temp Pulse Resp BP BP Pulse Ox 04/23/20 08:51 98.0 F 107 H 16 142/99 H 96 04/23/20 04:38 98.7 F 103 H 23 H 148/100 H 96 04/22/20 23:36 98 154/92 H Weight Admit Weight 118 lb Weight 118 lb I&O: 04/22/20 04/23/20 04/24/20 06:59 06:59 06:59 Intake Total 640 2110 Output Total 420 850 Balance 220 1260 Result Diagrams: 04/23/20 08:15 04/22/20 03:47 Hospitalist ROS - Medication Medications: Active Medications Generic Name Dose Route Start Last Admin Trade Name Freq PRN Reason Stop Dose Admin Acetaminophen 650 mg 04/12/20 17:47 04/14/20 14:55 Acetaminophen 325 Mg Tab PO 650 mg Q4H PRN Administration Headache/Fever/Mild Pain (1-3) Apixaban 5 mg 04/18/20 21:00 04/23/20 08:53 Apixaban 5 Mg Tab PO 5 mg BID MARIANA Administration Levetiracetam 500 mg 04/14/20 21:00 04/23/20 08:53 Levetiracetam 500 Mg Tab PO 500 mg BID MARIANA Administration Megestrol Acetate 80 mg 04/16/20 21:00 04/23/20 08:53 Megestrol Acetate 40 Mg Tab PO 80 mg BID MARIANA Administration Pantoprazole Sodium 40 mg 04/13/20 09:00 04/23/20 08:53 Pantoprazole 40 Mg Tab PO 40 mg DAILY MARIANA Administration Polyethylene Glycol 17 gm 04/14/20 21:00 04/23/20 08:54 Polyethylene Glycol 3350 17 Gm Packet PER TUBE Not Given BID MARIANA Promethazine HCl 12.5 mg 04/14/20 13:58 04/16/20 21:16 Promethazine 25 Mg Tab PO 12.5 mg Q6H PRN Administration Nausea/Vomiting Senna/Docusate Sodium 2 tab 04/12/20 21:00 04/23/20 08:54 Senokot S 8.6-50 Mg Tab PO Not Given BID MARIANA Hospitalist Exam Vitals: Vital Signs (12 hours) Temp Pulse Resp BP BP Pulse Ox 04/23/20 08:51 98.0 F 107 H 16 142/99 H 96 04/23/20 04:38 98.7 F 103 H 23 H 148/100 H 96 04/22/20 23:36 98 154/92 H Weight Admit Weight 118 lb Weight 118 lb Hosp A/P (1) Pulmonary embolism Code(s): I26.99 - OTHER PULMONARY EMBOLISM WITHOUT ACUTE COR PULMONALE Status: Acute (2) Nausea & vomiting Code(s): R11.2 - NAUSEA WITH VOMITING, UNSPECIFIED Status: Acute (3) Astrocytoma brain tumor Code(s): C71.9 - MALIGNANT NEOPLASM OF BRAIN, UNSPECIFIED Status: Acute (4) Colitis Code(s): K52.9 - NONINFECTIVE GASTROENTERITIS AND COLITIS, UNSPECIFIED Status: Acute (5) Sinus tachycardia Code(s): R00.0 - TACHYCARDIA, UNSPECIFIED Status: Acute (6) Constipated Code(s): K59.00 - CONSTIPATION, UNSPECIFIED Status: Chronic Qualifiers: Constipation type: slow transit constipation Qualified Code(s): K59.01 - Slow transit constipation (7) Protein-calorie malnutrition, moderate Code(s): E44.0 - MODERATE PROTEIN-CALORIE MALNUTRITION Status: Chronic - Plan * Acute Pulmonary Embolus- Clinically improving * Heart rate has improved * Nausea is better, and she has medication at home * Stable for discharge
[2020-04-23 11:59] VITALS: BP 147/97; TEMP 97.6
--- NOTE | 2020-04-23 18:54 | PDOC.DS.DS ---
Provider Date of Admission: 04/14/20 12:56 Date of Discharge: 04/23/20 Admitting Provider: Kenney Leal MD Consultations: Oncology Primary Care Physician: NO PCP PROVIDER Course Hospital Course: Ms. Martinez is a pleasant 49-year-old female that has a history of astrocytoma. She presented to the emergency room after feeling very weak and it had 2 falls. She was also complained complaining of abdominal pain nausea retching. She was evaluated in the emergency room and a CT scan of the abdomen was done which showed some thickening of the colon which was consistent with an infectious colitis. She was admitted and treated symptomatically. During the course of her admission she was found to have a pulmonary embolism in the right lower lobe. She was started on anticoagulation. She was seen by gastroenterology as well as oncology during her hospital stay. It was noted that she had some degree of thrombocytopenia with platelet counts in the 40,000 range. This was discussed with the oncologist and it was felt that she could not be maintained on a low-dose Eliquis at 5 mg twice daily initially and then I told her to follow-up with the cancer center to determine if the dose would need to need to be reduced any further. Pertinent Studies: CTA Chest Resuscitation Status: 04/12/20 18:32 Resuscitation Status Routine Co-Sign Provider: Resuscitation Status: FULL: Full Resuscitation Discussed with: patient Additional comments: Family at the bedside Lab Results: 04/23/20 08:15 04/22/20 03:47 Abnormal Lab Results - Last 48 hrs 04/13/20 08:11: Crossmatch See Detail 04/22/20 03:47: Chloride 112 H, Anion Gap 7 L 04/22/20 03:47: WBC 2.5 L, RBC 2.18 L, Hgb 7.5 L, Hct 22.5 L, MCV 103.0 H, MCH 34.4 H, RDW 17.4 H, Plt Count 41 L, MPV 11.0 H, Band Neuts % (Manual) 16 H, Lymphocytes % (Manual) 18 L, Monocytes % (Manual) 22 H, Myelocytes % 1 H, Plt Morphology Comment Appears Decreased L 04/22/20 16:18: Crossmatch See Detail 04/23/20 08:15: WBC 3.5 L, RBC 2.61 L, Hgb 8.6 L, Hct 25.8 L, MCV 98.6 H, MCH 32.9 H, RDW 17.1 H, Plt Count 30 L, MPV 5.0 L, Band Neuts % (Manual) 14 H, Lymphocytes % (Manual) 10 L, Monocytes % (Manual) 13 H, Plt Morphology Comment Appears Decreased L Microbiology - Entire Visit 04/16/20 21:28 Urine clean catch Urine Culture - Final NO GROWTH AT 36 HOURS 04/12/20 13:06 Venous blood - Left Arm Blood Culture - Final NO GROWTH IN 5 DAYS 04/12/20 13:06 Venous blood - Right Arm Blood Culture - Final NO GROWTH IN 5 DAYS 04/12/20 14:04 Urine voided Urine Culture - Final NO GROWTH AT 48 HOURS Vitals: Vital Signs (12 hours) Temp Pulse Resp BP BP Pulse Ox 04/23/20 11:59 97.6 F 107 H 20 147/97 H 96 04/23/20 08:51 98.0 F 107 H 16 142/99 H 96 Weight Admit Weight 118 lb Weight 118 lb Physical Exam: The patient was seen and examined on the day of discharge. Problem (1) Pulmonary embolism Code(s): I26.99 - OTHER PULMONARY EMBOLISM WITHOUT ACUTE COR PULMONALE Status: Acute (2) Nausea & vomiting Code(s): R11.2 - NAUSEA WITH VOMITING, UNSPECIFIED Status: Acute (3) Astrocytoma brain tumor Code(s): C71.9 - MALIGNANT NEOPLASM OF BRAIN, UNSPECIFIED Status: Acute (4) Colitis Code(s): K52.9 - NONINFECTIVE GASTROENTERITIS AND COLITIS, UNSPECIFIED Status: Acute (5) Sinus tachycardia Code(s): R00.0 - TACHYCARDIA, UNSPECIFIED Status: Acute (6) Constipated Code(s): K59.00 - CONSTIPATION, UNSPECIFIED Status: Chronic Qualifiers: Constipation type: slow transit constipation Qualified Code(s): K59.01 - Slow transit constipation (7) Protein-calorie malnutrition, moderate Code(s): E44.0 - MODERATE PROTEIN-CALORIE MALNUTRITION Status: Chronic Plan Prescriptions: Apixaban [Eliquis] 5 mg PO BID #60 tab Megestrol Acetate [Megace] 40 mg PO DAILY #30 tab Pantoprazole [Protonix] 40 mg PO DAILY #30 tab Home Medications: Medication Instructions Recorded Confirmed Type Acetaminophen 500 mg PO DAILY PRN 01/10/19 04/12/20 History Acetaminophen W/ Codeine 1 tab PO Q6HR PRN #60 tab 01/16/19 04/12/20 Rx [Acetaminophen/Codeine #3] levETIRAcetam [Keppra] 500 mg PO BID tab 01/16/19 04/12/20 Rx Apixaban [Eliquis] 5 mg PO BID #60 tab 04/23/20 Rx Megestrol Acetate [Megace] 40 mg PO DAILY #30 tab 04/23/20 Rx Pantoprazole [Protonix] 40 mg PO DAILY #30 tab 04/23/20 Rx Allergies: No Known Allergies Allergy (Verified 01/10/19 15:52) Activity:: Activity as Tolerated Referrals: Kan Beatty MD [Active] - 04/25/20 11:45 am (follow-up CBC ) PROVIDER,NO PCP [Primary Care Provider] - (Please call to schedule an appoint with any Primary Care provider in town.) Disposition: HOME Quality CORE MEASURES:: N/A
== END 2020-04-23 14:20 | disposition home or self-care (01) | DRG 391 ==
LOC: ERS 12:07 → SURG A 17:31 → OBSVTOIN 04-14 12:56 → 2NO 04-18 05:33
PROVIDERS: ADMIT Internal Medicine; ATTEND Internal Medicine
PROC: 30233N1 Transfusion of Nonautologous Red Blood Cells into Peripheral Vein, Percutaneous Approach (ICD-10-PCS; principal; 2020-04-13)
DX: A09 Infectious gastroenteritis and colitis, unspecified (principal); I26.99 Other pulmonary embolism without acute cor pulmonale; D61.810 Antineoplastic chemotherapy induced pancytopenia; C71.9 Malignant neoplasm of brain, unspecified; E44.0 Moderate protein-calorie malnutrition; Z20.822 Contact with and (suspected) exposure to COVID-19; K59.01 Slow transit constipation; R29.6 Repeated falls; D63.8 Anemia in other chronic diseases classified elsewhere; G40.909 Epilepsy, unspecified, not intractable, without status epilepticus; Z79.899 Other long term (current) drug therapy; Z28.21 Immunization not carried out because of patient refusal; Z68.21 Body mass index [BMI] 21.0-21.9, adult
CPT/HCPCS: 36415; 36416; 36430; 51701; 70450; 71045; 71275; 74177; 80048; 80053; 81003; 81015; 83605; 83735; 84484; 84703; 85025; 85379; 86850; 86900; 86901; 87040; 87086; 87635; 93005; 93010; 96365; 96366; 96375; 96376; G0378; J2405; J2543; J3475; J3480; J3490; J7050; P9016; Q0169; Q9967; S0179; U0003; U0005

== ENCOUNTER 2020-04-30 12:53 | Day surgery (SDC) | payer BC, OTHER ==
[2020-04-30] MEDS ORDERED: diphenhydrAMINE 25 MG CAP PO SCH (13:45)
[2020-04-30] MEDS ORDERED: Acetaminophen 500 MG TAB PO SCH (13:45)
[2020-04-30 16:34] VITALS: TEMP 98.3
[2020-04-30 17:26] VITALS: BP 130/85
== END 2020-04-30 17:27 | disposition home or self-care (01) ==
LOC: ONC/OP 12:53
PROVIDERS: ATTEND Internal Medicine Hematology & Oncology
PROC: 30233R1 Transfusion of Nonautologous Platelets into Peripheral Vein, Percutaneous Approach (ICD-10-PCS; principal; 2020-04-30)
DX: D69.6 Thrombocytopenia, unspecified (principal); D64.9 Anemia, unspecified
CPT/HCPCS: 36415; 36430; 86850; 86900; 86901; P9035; Q0163

== ENCOUNTER 2020-05-17 22:41 | Day surgery (SDC) | payer BC ==
[2020-05-17] MEDS ORDERED: Acetaminophen 500 MG TAB PO SCH (23:45)
[2020-05-17] MEDS ORDERED: diphenhydrAMINE 25 MG CAP PO SCH (23:45)
[2020-05-18 09:26] VITALS: BP 120/75; TEMP 98
[2020-05-18 10:31] LABS: Band 6 % (5-11); Eosinophils 1 % (0-10); Lymphocytes 37 % (21-51); MDiff Complete? YES; Mean Corpuscular HGB CONC 34.8 g/dL (32.0-36.0); Mean Corpuscular Hemoglobin 32.8 pg (27.0-31.0); Mean Corpuscular Volume 94.2 fL (78.0-98.0); Mean Platelet Volume 10.7 fL (7.4-10.4); Monocytes 5 % (0-10); Neutrophil 49 % (42-75); Platelet Count 26 thou/uL (130-400); Platelet Morphology Comment Appears Decreased; RBC Distribution Width 20.1 % (11.5-14.5); Reactive Lymphocytes 1 % (0-10); Red Blood Cell (RBC) Count 2.75 mill/uL (4.20-5.40); White Blood Cell (WBC) Count 2.3 thou/uL (4.8-10.8)
== END 2020-05-18 11:30 | disposition home or self-care (01) ==
LOC: SDC/OP 22:41 → 3SE 23:32 → SDC/OP 05-18 11:30
PROVIDERS: ATTEND Internal Medicine Hematology & Oncology
PROC: 30233N1 Transfusion of Nonautologous Red Blood Cells into Peripheral Vein, Percutaneous Approach (ICD-10-PCS; principal; 2020-05-18)
DX: D64.9 Anemia, unspecified (principal); D69.6 Thrombocytopenia, unspecified; C71.1 Malignant neoplasm of frontal lobe
CPT/HCPCS: 36415; 36430; 36591; 80053; 82248; 83615; 84100; 84550; 85025; 86850; 86900; 86901; P9016; Q0163

== ENCOUNTER 2020-05-21 11:52 | Outpatient (CLI) | payer BC, OTHER ==
--- NOTE | 2020-05-21 14:09 | MRI ---
Exam: Brain MRI with and without contrast HISTORY: Status post brain surgery. Three-month follow-up. COMPARISON: 01/03/2020 FINDINGS: Gradient echo sequence: Stable hemosiderin deposition at the resection cavity site, unchanged Calvarium: Postoperative changes involving the right calvarium Midline brain parenchyma: Unremarkable Cerebrum:Stable postoperative changes involving the right frontal lobe. There is stable gliosis and e ncephalomalacia. There are stable confluent T2 and FLAIR white matter hyperintensities, in part due to gliosis and in part due to chronic small vessel ischemic changes. There does appear to be slight i ncreased T2 and FLAIR hyperintensity involving the right centrum semiovale which may represent posttreatment change. There is no associated restricted diffusion or abnormal enhancement. Ventricles: No evidence of hydrocephalus. Sinuses and mastoid air cells: Adequate aeration Diffusion: Central arterial flow is maintained. Absent restricted diffusion. Postcontrast images:No pathologic enhancement of the brain parenchyma. Stable enhancement of the dura underlying the calvarial defect. IMPRESSION: 1. Stable postoperative change. No pathologic enhancement. 2. T2 and FLAIR hyperintensities in the right centrum semiovale likely representing posttreatment chelsy nge of the white matter
== END 2020-05-21 11:53 | disposition home or self-care (01) ==
LOC: MRI 11:52
PROVIDERS: ATTEND Neurological Surgery
DX: Z48.3 Aftercare following surgery for neoplasm (principal); C71.9 Malignant neoplasm of brain, unspecified; R90.89 Other abnormal findings on diagnostic imaging of central nervous system; Z98.890 Other specified postprocedural states
CPT/HCPCS: 70553; A9579

== ENCOUNTER 2020-06-29 18:56 | Inpatient (IN) | payer BC ==
[~2020-06-29 18:56] MED LIST changes: +Iopamidol-370 76% 500 ML 1 ML ONE; -Magnevist 469MG/ML 20 ML VIAL ONE
[2020-06-29 20:11] LABS: #Lymphocytes 0.9 thou/uL (1.20-3.40); #Monocytes 0.4 thou/uL (0.11-0.59); #Neutrophils 5.9 thou/uL (1.40-6.50); %Eosinophils 0.5 % (0.0-10.0); %Lymphocytes 11.9 % (21.0-51.0); %Monocytes 5.7 % (0.0-10.0); %Neutrophils 81.8 % (42.0-75.0); Hemoglobin 11.1 g/dL (12.0-16.0); Mean Corpuscular HGB CONC 34.3 g/dL (32.0-36.0); Mean Corpuscular Hemoglobin 33.6 pg (27.0-31.0); Mean Corpuscular Volume 98.1 fL (78.0-98.0); Mean Platelet Volume 8.4 fL (7.4-10.4); Platelet Count 196 thou/uL (130-400); RBC Distribution Width 16.7 % (11.5-14.5); Red Blood Cell (RBC) Count 3.29 mill/uL (4.20-5.40); White Blood Cell (WBC) Count 7.2 thou/uL (4.8-10.8)
[2020-06-29 20:30] LABS: ALT (SGPT) Less than 7 U/L (8-55); AST (SGOT) 9 U/L (5-34); Albumin 4.4 g/dL (3.5-5.0); Alkaline Phosphatase 52 U/L (40-110); Anion Gap 28 mmol/L (10-20); BUN (Urea Nitrogen) 12 mg/dL (7.0-18.7); Calc. Creatinine Clearance 0 mL/min (70-130); Calcium 9.4 mg/dL (7.8-10.44); Carbon Dioxide 17 mmol/L (22-29); Chloride 99 mmol/L (98-107); Globulin 2.6 g/dL (2.4-3.5); Glucose 72 mg/dL (70-105); Potassium 3.2 mmol/L (3.5-5.1); Sodium 141 mmol/L (136-145)
[2020-06-29] MEDS ORDERED: Ondansetron PF 4 MG/2 ML Vial ONE ×2 (20:45→22:38)
[2020-06-29] MEDS ORDERED: Apixaban 5 MG TAB PO SCH (22:45)
[2020-06-29 22:49] LABS: Bacteria/HPF Rare-Few HPF (None Seen); Bilirubin Negative (Negative); Blood, Urine 1+ (Negative); Clarity Clear (Clear); Glucose, Urine (Dipstick) Normal (Negative); Ketone, Urine Greater than 150 mg/dL (Negative); Leukocyte Negative Leu/uL (Negative); Nitrite Negative (Negative); Protein, Urine (Dipstick) 10 mg/dL (Neg-Trace); RBC/HPF 0-3 HPF (0-3); Specific Gravity, Urine 1.032 (1.002-1.036); Squamous Epithelial 0-3 HPF (0-3); Urobilinogen Normal mg/dL (Less than 2); WBC/HPF 0-3 HPF (0-3); pH, Urine 5.5 (5.0-9.0)
[2020-06-29] MEDS ORDERED: levETIRAcetam 500 MG TAB PO SCH (23:15)
[2020-06-30] MEDS ORDERED: Guaifenesin DM 100-10/5 ML UDCUP PO PRN (00:32)
[2020-06-30] MEDS ORDERED: Potassium Chloride 20 MEQ TAB PO SCH (01:00)
[2020-06-30] MEDS ORDERED: Sodium Chloride 0.9% 1,000 ML IV SCH (01:30)
[2020-06-30] MEDS ORDERED: Potassium Bicarbonate/Cit Ac 20 MEQ TAB PO SCH (03:15)
[2020-06-30 04:57] LABS: #Lymphocytes 0.7 thou/uL (1.20-3.40); #Monocytes 0.5 thou/uL (0.11-0.59); #Neutrophils 5.4 thou/uL (1.40-6.50); %Basophils 0.6 % (0.0-1.0); %Eosinophils 0.4 % (0.0-10.0); %Lymphocytes 10.1 % (21.0-51.0); %Monocytes 6.8 % (0.0-10.0); %Neutrophils 82.1 % (42.0-75.0); Hemoglobin 8.6 g/dL (12.0-16.0); Mean Corpuscular HGB CONC 33.8 g/dL (32.0-36.0); Mean Corpuscular Hemoglobin 33.1 pg (27.0-31.0); Mean Corpuscular Volume 97.9 fL (78.0-98.0); Platelet Count 122 thou/uL (130-400); RBC Distribution Width 16.7 % (11.5-14.5); White Blood Cell (WBC) Count 6.6 thou/uL (4.8-10.8)
[2020-06-30 07:25] LABS: Anion Gap 25 mmol/L (10-20); BUN (Urea Nitrogen) 10 mg/dL (7.0-18.7); Calc. Creatinine Clearance 50 mL/min (70-130); Calcium 8.1 mg/dL (7.8-10.44); Carbon Dioxide 14 mmol/L (22-29); Chloride 104 mmol/L (98-107); Cholesterol 252 mg/dl (< 200 Desired); Sodium 140 mmol/L (136-145)
[2020-06-30 07:26] LABS: Cardiac Risk 10.1 (Less than 4.5); HDL Cholesterol 25 mg/dL (>60 Neg Risk); LDL Cholesterol, Calculated 171 mg/dL; Triglycerides 278 mg/dL (Less than 150)
[2020-06-30 07:33] LABS: Glucose 55 mg/dL (70-105)
[2020-06-30] MEDS: Ondansetron ODT 4 MG TAB PO PRN (09:10)
[2020-06-30] MEDS: Polyethylene Glycol 3350 17 GM Packet PO SCH (09:19)
[2020-06-30] MEDS ORDERED: levETIRAcetam 500 MG TAB PO SCH (10:00)
[2020-06-30] MEDS ORDERED: Lorazepam 1 MG TAB PO PRN (11:31)
[2020-06-30] MEDS ORDERED: Megestrol Acetate 40 MG TAB PO SCH (12:00)
[2020-06-30] MEDS ORDERED: Apixaban 5 MG TAB PO SCH (12:00)
[2020-06-30] MEDS: Ondansetron PF 4 MG/2 ML Vial IVP PRN (12:57)
[2020-06-30] MEDS: Atorvastatin Calcium 20 MG TAB PO SCH (21:16)
[2020-06-30] MEDS: Apixaban 5 MG TAB PO SCH (21:17)
[2020-06-30] MEDS: levETIRAcetam 500 MG TAB PO SCH (21:17)
[2020-07-01 05:27] LABS: Hemoglobin 8.2 g/dL (12.0-16.0); Mean Corpuscular HGB CONC 33.2 g/dL (32.0-36.0); Mean Corpuscular Hemoglobin 32.9 pg (27.0-31.0); Mean Platelet Volume 7.9 fL (7.4-10.4); Platelet Count 127 thou/uL (130-400); RBC Distribution Width 16.7 % (11.5-14.5); Red Blood Cell (RBC) Count 2.49 mill/uL (4.20-5.40); White Blood Cell (WBC) Count 3.8 thou/uL (4.8-10.8)
[2020-07-01 05:47] LABS: Anion Gap 12 mmol/L (10-20); BUN (Urea Nitrogen) 8 mg/dL (7.0-18.7); Calc. Creatinine Clearance 50 mL/min (70-130); Carbon Dioxide 27 mmol/L (22-29); Chloride 103 mmol/L (98-107); Glucose 88 mg/dL (70-105); Sodium 139 mmol/L (136-145)
[2020-07-01 05:54] LABS: Potassium 2.9 mmol/L (3.5-5.1)
[2020-07-01] MEDS ORDERED: Electrolyte Replacement Protocol 1 EACH FS PRN (06:13)
[2020-07-01 06:15] LABS: Thyroid Stimulating Hormone 1.623 uIU/mL (0.35-4.94)
[2020-07-01] MEDS: Potassium Bicarbonate/Cit Ac 20 MEQ TAB PO SCH ×2 (06:43→10:02)
[2020-07-01] MEDS: Apixaban 5 MG TAB PO SCH ×2 (08:57→21:43)
[2020-07-01] MEDS: Megestrol Acetate 40 MG TAB PO SCH (08:58)
[2020-07-01] MEDS: levETIRAcetam 500 MG TAB PO SCH ×2 (08:58→21:44)
[2020-07-01] MEDS: Polyethylene Glycol 3350 17 GM Packet PO SCH ×2 (08:59→10:04)
[2020-07-01] MEDS: Folic Acid 1 MG TAB PO SCH (10:02)
[2020-07-01] MEDS: Ondansetron PF 4 MG/2 ML Vial IVP PRN (10:10)
[2020-07-01 12:37] LABS: Potassium 4.5 mmol/L (3.5-5.1)
[2020-07-01] MEDS: Atorvastatin Calcium 20 MG TAB PO SCH (21:44)
[2020-07-02] MEDS: Apixaban 5 MG TAB PO SCH ×2 (08:42→21:51)
[2020-07-02] MEDS: levETIRAcetam 500 MG TAB PO SCH ×2 (08:42→21:51)
[2020-07-02] MEDS: Folic Acid 1 MG TAB PO SCH (08:42)
[2020-07-02] MEDS: Megestrol Acetate 40 MG TAB PO SCH (08:42)
[2020-07-02] MEDS: Ondansetron ODT 4 MG TAB PO PRN (08:42)
[2020-07-02] MEDS: Polyethylene Glycol 3350 17 GM Packet PO SCH (08:43)
[2020-07-02] MEDS: Sodium Chloride 0.9% 1,000 ML IV SCH (15:12)
[2020-07-02] MEDS: Atorvastatin Calcium 20 MG TAB PO SCH (21:51)
[2020-07-03 03:50] LABS: Hemoglobin 7.8 g/dL (12.0-16.0); Platelet Count 127 thou/uL (130-400)
[2020-07-03] MEDS: Sodium Chloride 0.9% 1,000 ML IV SCH ×2 (04:43→18:28)
[2020-07-03] MEDS: Polyethylene Glycol 3350 17 GM Packet PO SCH (09:39)
[2020-07-03] MEDS: Ondansetron ODT 4 MG TAB PO PRN (09:41)
[2020-07-03] MEDS: Folic Acid 1 MG TAB PO SCH (09:41)
[2020-07-03] MEDS: levETIRAcetam 500 MG TAB PO SCH ×2 (09:42→20:26)
[2020-07-03] MEDS: Megestrol Acetate 40 MG TAB PO SCH (09:42)
[2020-07-03] MEDS: Apixaban 5 MG TAB PO SCH (09:58)
[2020-07-03 11:35] LABS: Iron 56 ug/dL (50-170); Iron Binding Capacity, Total 129 mcg/dL (265-497); Transferrin, Serum 103 mg/dL (180-382)
[2020-07-03] MEDS ORDERED: Senokot S 8.6-50 MG TAB PO SCH (13:45)
[2020-07-03] MEDS: Senokot S 8.6-50 MG TAB PO SCH (20:26)
[2020-07-03] MEDS: Atorvastatin Calcium 20 MG TAB PO SCH (20:27)
[2020-07-04 04:24] LABS: SARS-CoV-2 PCR by NAA Not Detected (NotDetected)
[2020-07-04] MEDS ORDERED: Magnesium Citrate 300 ML BOT PO SCH (08:00)
[2020-07-04] MEDS: Sodium Chloride 0.9% 1,000 ML IV SCH ×3 (08:54→22:33)
[2020-07-04] MEDS: levETIRAcetam 500 MG TAB PO SCH ×2 (08:55→20:11)
[2020-07-04] MEDS: Polyethylene Glycol 3350 17 GM Packet PO SCH (08:55)
[2020-07-04] MEDS: Senokot S 8.6-50 MG TAB PO SCH ×2 (08:55→20:11)
[2020-07-04] MEDS: Megestrol Acetate 40 MG TAB PO SCH (08:55)
[2020-07-04] MEDS: Ondansetron ODT 4 MG TAB PO PRN (09:25)
[2020-07-04] MEDS: Folic Acid 1 MG TAB PO SCH (09:25)
[2020-07-04 10:08] LABS: Hemoglobin 7.9 g/dL (12.0-16.0); Mean Corpuscular HGB CONC 32.5 g/dL (32.0-36.0); Mean Corpuscular Hemoglobin 33.2 pg (27.0-31.0); Mean Platelet Volume 8.2 fL (7.4-10.4); Platelet Count 148 thou/uL (130-400); RBC Distribution Width 17.3 % (11.5-14.5); Red Blood Cell (RBC) Count 2.37 mill/uL (4.20-5.40); White Blood Cell (WBC) Count 6.2 thou/uL (4.8-10.8)
[2020-07-04] MEDS ORDERED: GoLYTELY 4,000 ml Bottle PO SCH ×2 (16:00→18:45)
[2020-07-04] MEDS: Atorvastatin Calcium 20 MG TAB PO SCH (20:11)
[2020-07-05] MEDS: Senokot S 8.6-50 MG TAB PO SCH ×2 (08:09→20:00)
[2020-07-05] MEDS: Megestrol Acetate 40 MG TAB PO SCH (08:09)
[2020-07-05] MEDS: Polyethylene Glycol 3350 17 GM Packet PO SCH (08:09)
[2020-07-05] MEDS: Folic Acid 1 MG TAB PO SCH (08:38)
[2020-07-05] MEDS: levETIRAcetam 500 MG TAB PO SCH ×2 (08:38→20:00)
[2020-07-05] MEDS ORDERED: PHENYLEPHRINE-NS 100 MCG/ML 10 ML SYRINGE ONE (13:45)
[2020-07-05] MEDS ORDERED: PROPOFOL 200 MG/20 ML VIAL ONE (13:45)
[2020-07-05] MEDS ORDERED: Promethazine HCl 25 MG/ML VIAL IM PRN (14:12)
[2020-07-05] MEDS ORDERED: Ondansetron HCl/PF 4 MG/2 ML Vial IVP PRN (14:12)
[2020-07-05] MEDS ORDERED: Promethazine HCl 25 MG/ML VIAL SLOW IVP PRN (14:12)
[2020-07-05 16:59] LABS: Hemoglobin 7.9 g/dL (12.0-16.0); Mean Corpuscular HGB CONC 32.8 g/dL (32.0-36.0); Mean Corpuscular Hemoglobin 33.4 pg (27.0-31.0); Mean Platelet Volume 7.7 fL (7.4-10.4); Platelet Count 158 thou/uL (130-400); RBC Distribution Width 17.9 % (11.5-14.5); Red Blood Cell (RBC) Count 2.37 mill/uL (4.20-5.40); White Blood Cell (WBC) Count 4.9 thou/uL (4.8-10.8)
[2020-07-05] MEDS: Sodium Chloride 0.9% 1,000 ML IV SCH (17:15)
[2020-07-05] MEDS: Atorvastatin Calcium 20 MG TAB PO SCH (20:00)
[2020-07-06 05:02] LABS: Hemoglobin 6.9 g/dL (12.0-16.0); Mean Corpuscular HGB CONC 34.3 g/dL (32.0-36.0); Mean Corpuscular Hemoglobin 34.9 pg (27.0-31.0); Mean Platelet Volume 8.1 fL (7.4-10.4); Platelet Count 154 thou/uL (130-400); RBC Distribution Width 17.9 % (11.5-14.5); Red Blood Cell (RBC) Count 1.97 mill/uL (4.20-5.40); White Blood Cell (WBC) Count 4.1 thou/uL (4.8-10.8)
[2020-07-06] MEDS: Sodium Chloride 0.9% 1,000 ML IV SCH ×2 (06:25→15:47)
[2020-07-06 09:02] LABS: Mean Corpuscular HGB CONC 32.8 g/dL (32.0-36.0); Mean Corpuscular Hemoglobin 33.7 pg (27.0-31.0); Mean Platelet Volume 8.6 fL (7.4-10.4); Platelet Count 148 thou/uL (130-400); RBC Distribution Width 18.2 % (11.5-14.5); Red Blood Cell (RBC) Count 2.07 mill/uL (4.20-5.40); White Blood Cell (WBC) Count 3.7 thou/uL (4.8-10.8)
[2020-07-06 09:10] LABS: ALT (SGPT) Less than 7 U/L (8-55); AST (SGOT) 9 U/L (5-34); Albumin 2.8 g/dL (3.5-5.0); Alkaline Phosphatase 51 U/L (40-110); Anion Gap 12 mmol/L (10-20); BUN (Urea Nitrogen) 8 mg/dL (7.0-18.7); Bilirubin, Total 0.2 mg/dL (0.2-1.2); Calc. Creatinine Clearance 63 mL/min (70-130); Calcium 7.8 mg/dL (7.8-10.44); Carbon Dioxide 22 mmol/L (22-29); Chloride 113 mmol/L (98-107); Glucose 107 mg/dL (70-105); Potassium 3.8 mmol/L (3.5-5.1); Protein, Total 4.8 g/dL (6.0-8.3); Sodium 143 mmol/L (136-145)
[2020-07-06 09:16] LABS: #Eosinphils 0.1 thou/uL (0.0-0.7); #Lymphocytes 0.6 thou/uL (1.20-3.40); #Monocytes 0.5 thou/uL (0.11-0.59); #Neutrophils 2.5 thou/uL (1.40-6.50); %Basophils 0.4 % (0.0-1.0); %Eosinophils 2.6 % (0.0-10.0); %Lymphocytes 16.3 % (21.0-51.0); %Monocytes 13.1 % (0.0-10.0); %Neutrophils 67.6 % (42.0-75.0); Anisocytosis MODERATE=16-30 cells (100X) (0-5/hpf); Burr Cells SLIGHT = 2-5 cells (100X) (0-1/hpf); MDiff Complete? YES; Macrocytosis SLIGHT = 6-15 cells (100X) (0-5/hpf); Platelet Morphology Comment Appears Adequate; Polychromasia SLIGHT = 2-3 cells (100X) (0-2/hpf)
[2020-07-06] MEDS ORDERED: Aspirin 81 mg Enteric Coated Tablet PO SCH (09:45)
[2020-07-06] MEDS: Polyethylene Glycol 3350 17 GM Packet PO SCH (09:48)
[2020-07-06] MEDS: Senokot S 8.6-50 MG TAB PO SCH ×2 (09:48→20:53)
[2020-07-06] MEDS: levETIRAcetam 500 MG TAB PO SCH ×2 (09:49→20:54)
[2020-07-06] MEDS: Folic Acid 1 MG TAB PO SCH (09:49)
[2020-07-06] MEDS: Megestrol Acetate 40 MG TAB PO SCH (09:49)
[2020-07-06] MEDS ORDERED: Iopamidol-370 76% 500 ML 1 ML ONE (10:08)
[2020-07-06] MEDS ORDERED: Sodium Chloride 0.9% 1,000 ML IV SCH (13:15)
[2020-07-06] MEDS: Ondansetron ODT 4 MG TAB PO PRN (17:18)
[2020-07-06] MEDS: Atorvastatin Calcium 20 MG TAB PO SCH (20:54)
[2020-07-06] MEDS ORDERED: levETIRAcetam 500 MG TAB PO SCH (21:00)
[2020-07-07] MEDS: Sodium Chloride 0.9% 1,000 ML IV SCH ×2 (05:10→18:28)
[2020-07-07 05:43] LABS: Mean Corpuscular HGB CONC 33.4 g/dL (32.0-36.0); Mean Corpuscular Hemoglobin 32.5 pg (27.0-31.0); Mean Corpuscular Volume 97.3 fL (78.0-98.0); Mean Platelet Volume 7.6 fL (7.4-10.4); Platelet Count 144 thou/uL (130-400); RBC Distribution Width 18.1 % (11.5-14.5); Red Blood Cell (RBC) Count 2.77 mill/uL (4.20-5.40)
[2020-07-07 05:58] LABS: Band 3 % (5-11); Eosinophils 3 % (0-10); Lymphocytes 22 % (21-51); MDiff Complete? YES; Monocytes 10 % (0-10); Neutrophil 62 % (42-75); Platelet Morphology Comment Appears Adequate
[2020-07-07] MEDS: Aspirin 81 mg Enteric Coated Tablet PO SCH (10:05)
[2020-07-07] MEDS: Folic Acid 1 MG TAB PO SCH (10:06)
[2020-07-07] MEDS: levETIRAcetam 500 MG TAB PO SCH ×2 (10:06→20:23)
[2020-07-07] MEDS: Megestrol Acetate 40 MG TAB PO SCH (10:07)
[2020-07-07] MEDS: Senokot S 8.6-50 MG TAB PO SCH ×2 (10:07→20:24)
[2020-07-07] MEDS: Polyethylene Glycol 3350 17 GM Packet PO SCH (10:07)
[2020-07-07] MEDS: Atorvastatin Calcium 20 MG TAB PO SCH (20:23)
[2020-07-08 06:10] LABS: Hemoglobin 9.5 g/dL (12.0-16.0); Platelet Count 153 thou/uL (130-400)
[2020-07-08] MEDS: Acetaminophen 325 MG TAB PO PRN (09:29)
[2020-07-08] MEDS: Polyethylene Glycol 3350 17 GM Packet PO SCH (09:31)
[2020-07-08] MEDS: Megestrol Acetate 40 MG TAB PO SCH (09:31)
[2020-07-08] MEDS: Senokot S 8.6-50 MG TAB PO SCH ×2 (09:31→20:58)
[2020-07-08] MEDS: Aspirin 81 mg Enteric Coated Tablet PO SCH (09:31)
[2020-07-08] MEDS: levETIRAcetam 500 MG TAB PO SCH ×2 (09:31→20:58)
[2020-07-08] MEDS: Folic Acid 1 MG TAB PO SCH (09:32)
[2020-07-08] MEDS: Sodium Chloride 0.9% 1,000 ML IV SCH (09:33)
[2020-07-08] MEDS: Atorvastatin Calcium 20 MG TAB PO SCH (20:57)
[2020-07-09 06:24] LABS: Hemoglobin 9.3 g/dL (12.0-16.0); Mean Corpuscular HGB CONC 32.7 g/dL (32.0-36.0); Mean Corpuscular Hemoglobin 32.1 pg (27.0-31.0); Mean Corpuscular Volume 97.9 fL (78.0-98.0); Mean Platelet Volume 7.9 fL (7.4-10.4); Platelet Count 174 thou/uL (130-400); RBC Distribution Width 17.9 % (11.5-14.5); Red Blood Cell (RBC) Count 2.89 mill/uL (4.20-5.40)
[2020-07-09 06:45] LABS: Anion Gap 11 mmol/L (10-20); BUN (Urea Nitrogen) 8 mg/dL (7.0-18.7); Calc. Creatinine Clearance 79 mL/min (70-130); Calcium 7.6 mg/dL (7.8-10.44); Carbon Dioxide 23 mmol/L (22-29); Chloride 113 mmol/L (98-107); Glucose 86 mg/dL (70-105); Potassium 3.1 mmol/L (3.5-5.1); Sodium 144 mmol/L (136-145)
[2020-07-09 06:47] LABS: Hypochromia SLIGHT = 6-15 cells (100X) (0-5/hpf); Lymphocytes 10 % (21-51); MDiff Complete? YES; Monocytes 12 % (0-10); Neutrophil 78 % (42-75); Platelet Morphology Comment Appears Adequate
[2020-07-09] MEDS ORDERED: Potassium Chloride 20 MEQ TAB PO SCH (07:00)
[2020-07-09] MEDS: levETIRAcetam 500 MG TAB PO SCH ×2 (08:20→20:54)
[2020-07-09] MEDS: Folic Acid 1 MG TAB PO SCH (08:21)
[2020-07-09] MEDS: Megestrol Acetate 40 MG TAB PO SCH (08:21)
[2020-07-09] MEDS: Aspirin 81 mg Enteric Coated Tablet PO SCH (08:22)
[2020-07-09] MEDS: Polyethylene Glycol 3350 17 GM Packet PO SCH (08:22)
[2020-07-09] MEDS: Senokot S 8.6-50 MG TAB PO SCH ×2 (08:22→20:54)
[2020-07-09] MEDS ORDERED: Potassium Bicarbonate/Cit Ac 20 MEQ TAB PO SCH (08:30)
[2020-07-09] MEDS: Ondansetron ODT 4 MG TAB PO PRN (09:34)
[2020-07-09] MEDS: Atorvastatin Calcium 20 MG TAB PO SCH (20:54)
[2020-07-10 06:07] LABS: Hemoglobin 9.1 g/dL (12.0-16.0); Mean Corpuscular HGB CONC 34.1 g/dL (32.0-36.0); Mean Corpuscular Hemoglobin 33.6 pg (27.0-31.0); Mean Corpuscular Volume 98.3 fL (78.0-98.0); Mean Platelet Volume 7.7 fL (7.4-10.4); Platelet Count 163 thou/uL (130-400); RBC Distribution Width 17.5 % (11.5-14.5)
[2020-07-10 06:18] LABS: Anion Gap 11 mmol/L (10-20); BUN (Urea Nitrogen) 9 mg/dL (7.0-18.7); Calc. Creatinine Clearance 78 mL/min (70-130); Calcium 7.7 mg/dL (7.8-10.44); Carbon Dioxide 26 mmol/L (22-29); Chloride 111 mmol/L (98-107); Glucose 86 mg/dL (70-105); Potassium 3.5 mmol/L (3.5-5.1); Sodium 144 mmol/L (136-145)
[2020-07-10 06:45] LABS: Band 7 % (5-11); Eosinophils 4 % (0-10); Lymphocytes 14 % (21-51); MDiff Complete? YES; Monocytes 14 % (0-10); Neutrophil 61 % (42-75); Platelet Morphology Comment Appears Adequate
[2020-07-10] MEDS ORDERED: Potassium Bicarbonate/Cit Ac 20 MEQ TAB PO SCH (08:00)
[2020-07-10] MEDS: Folic Acid 1 MG TAB PO SCH (08:56)
[2020-07-10] MEDS: Megestrol Acetate 40 MG TAB PO SCH (08:56)
[2020-07-10] MEDS: levETIRAcetam 500 MG TAB PO SCH ×2 (08:56→22:10)
[2020-07-10] MEDS: Senokot S 8.6-50 MG TAB PO SCH ×2 (08:57→22:05)
[2020-07-10] MEDS: Aspirin 81 mg Enteric Coated Tablet PO SCH (08:57)
[2020-07-10] MEDS: Metoprolol Tartrate 25 MG TAB PO SCH ×2 (08:57→22:07)
[2020-07-10] MEDS: Polyethylene Glycol 3350 17 GM Packet PO SCH (09:01)
[2020-07-10] MEDS: Acetaminophen 325 MG TAB PO PRN (14:22)
[2020-07-10] MEDS: Atorvastatin Calcium 20 MG TAB PO SCH (22:06)
[2020-07-11] MEDS: Aspirin 81 mg Enteric Coated Tablet PO SCH (09:27)
[2020-07-11] MEDS: Senokot S 8.6-50 MG TAB PO SCH ×2 (09:27→20:05)
[2020-07-11] MEDS: Polyethylene Glycol 3350 17 GM Packet PO SCH (09:27)
[2020-07-11] MEDS: Megestrol Acetate 40 MG TAB PO SCH (09:28)
[2020-07-11] MEDS: Folic Acid 1 MG TAB PO SCH (09:28)
[2020-07-11] MEDS: Metoprolol Tartrate 25 MG TAB PO SCH ×2 (09:28→20:07)
[2020-07-11] MEDS: levETIRAcetam 500 MG TAB PO SCH ×2 (09:28→20:07)
[2020-07-11 12:54] VITALS: BMI 23.6
[2020-07-11] MEDS: Atorvastatin Calcium 20 MG TAB PO SCH (20:05)
[2020-07-12] MEDS: Aspirin 81 mg Enteric Coated Tablet PO SCH (08:33)
[2020-07-12] MEDS: levETIRAcetam 500 MG TAB PO SCH ×2 (08:33→21:48)
[2020-07-12] MEDS: Folic Acid 1 MG TAB PO SCH (08:33)
[2020-07-12] MEDS: Metoprolol Tartrate 25 MG TAB PO SCH ×2 (08:34→21:48)
[2020-07-12] MEDS: Megestrol Acetate 40 MG TAB PO SCH (08:34)
[2020-07-12] MEDS: Polyethylene Glycol 3350 17 GM Packet PO SCH (08:34)
[2020-07-12] MEDS: Senokot S 8.6-50 MG TAB PO SCH ×2 (08:34→21:48)
[2020-07-12] MEDS: Atorvastatin Calcium 20 MG TAB PO SCH (21:48)
[2020-07-13 08:56] LABS: #Eosinphils 0.1 thou/uL (0.0-0.7); #Lymphocytes 0.6 thou/uL (1.20-3.40); #Monocytes 0.5 thou/uL (0.11-0.59); #Neutrophils 2.4 thou/uL (1.40-6.50); %Basophils 0.2 % (0.0-1.0); %Eosinophils 3.5 % (0.0-10.0); %Lymphocytes 17.2 % (21.0-51.0); %Monocytes 13.8 % (0.0-10.0); %Neutrophils 65.3 % (42.0-75.0); Hemoglobin 9.3 g/dL (12.0-16.0); Mean Corpuscular HGB CONC 33.7 g/dL (32.0-36.0); Mean Corpuscular Hemoglobin 33.3 pg (27.0-31.0); Mean Corpuscular Volume 98.9 fL (78.0-98.0); Mean Platelet Volume 8.3 fL (7.4-10.4); Platelet Count 131 thou/uL (130-400); RBC Distribution Width 17.3 % (11.5-14.5); Red Blood Cell (RBC) Count 2.78 mill/uL (4.20-5.40); White Blood Cell (WBC) Count 3.7 thou/uL (4.8-10.8)
[2020-07-13] MEDS: Polyethylene Glycol 3350 17 GM Packet PO SCH (09:06)
[2020-07-13] MEDS: levETIRAcetam 500 MG TAB PO SCH ×2 (09:07→19:59)
[2020-07-13] MEDS: Aspirin 81 mg Enteric Coated Tablet PO SCH (09:08)
[2020-07-13] MEDS: Folic Acid 1 MG TAB PO SCH (09:08)
[2020-07-13] MEDS: Metoprolol Tartrate 25 MG TAB PO SCH ×2 (09:09→19:58)
[2020-07-13] MEDS: Megestrol Acetate 40 MG TAB PO SCH (09:09)
[2020-07-13] MEDS: Senokot S 8.6-50 MG TAB PO SCH ×2 (09:09→19:58)
[2020-07-13 09:16] LABS: Anion Gap 12 mmol/L (10-20); BUN (Urea Nitrogen) 11 mg/dL (7.0-18.7); Calc. Creatinine Clearance 65 mL/min (70-130); Carbon Dioxide 27 mmol/L (22-29); Chloride 109 mmol/L (98-107); Glucose 88 mg/dL (70-105); Potassium 3.5 mmol/L (3.5-5.1); Sodium 144 mmol/L (136-145)
[2020-07-13] MEDS ORDERED: Potassium Chloride 20 MEQ TAB PO SCH (09:30)
[2020-07-13] MEDS ORDERED: Potassium Bicarbonate/Cit Ac 20 MEQ TAB PO SCH (10:30)
[2020-07-13] MEDS: Atorvastatin Calcium 20 MG TAB PO SCH (20:00)
[2020-07-14] MEDS: levETIRAcetam 500 MG TAB PO SCH ×2 (08:19→19:43)
[2020-07-14] MEDS: Folic Acid 1 MG TAB PO SCH (08:19)
[2020-07-14] MEDS: Aspirin 81 mg Enteric Coated Tablet PO SCH (08:19)
[2020-07-14] MEDS: Megestrol Acetate 40 MG TAB PO SCH (08:20)
[2020-07-14] MEDS: Metoprolol Tartrate 25 MG TAB PO SCH ×2 (08:20→19:43)
[2020-07-14] MEDS: Polyethylene Glycol 3350 17 GM Packet PO SCH (08:21)
[2020-07-14] MEDS: Senokot S 8.6-50 MG TAB PO SCH ×2 (08:21→19:43)
[2020-07-14] MEDS: Atorvastatin Calcium 20 MG TAB PO SCH (19:43)
[2020-07-15] MEDS: Senokot S 8.6-50 MG TAB PO SCH (09:12)
[2020-07-15] MEDS: Folic Acid 1 MG TAB PO SCH (09:12)
[2020-07-15] MEDS: Metoprolol Tartrate 25 MG TAB PO SCH (09:12)
[2020-07-15] MEDS: Megestrol Acetate 40 MG TAB PO SCH (09:12)
[2020-07-15] MEDS: Aspirin 81 mg Enteric Coated Tablet PO SCH (09:12)
[2020-07-15] MEDS: levETIRAcetam 500 MG TAB PO SCH (09:12)
[2020-07-15] MEDS: Polyethylene Glycol 3350 17 GM Packet PO SCH (09:13)
[2020-07-15 15:58] VITALS: BP 123/87; TEMP 97.5
== END 2020-07-15 17:18 | DRG 392 ==
LOC: ERS 18:56 → 2SE 23:23 → OBSVTOIN 06-30 17:00
PROVIDERS: ADMIT Student in an Organized Health Care Education/Training Program; ATTEND Hospitalist
PROC: 0D738ZZ Dilation of Lower Esophagus, Via Natural or Artificial Opening Endoscopic (ICD-10-PCS; principal; 2020-07-05)
PROC: 0DB78ZX Excision of Stomach, Pylorus, Via Natural or Artificial Opening Endoscopic, Diagnostic (ICD-10-PCS; 2020-07-05)
PROC: 0DJD8ZZ Inspection of Lower Intestinal Tract, Via Natural or Artificial Opening Endoscopic (ICD-10-PCS; 2020-07-05)
PROC: 30233N1 Transfusion of Nonautologous Red Blood Cells into Peripheral Vein, Percutaneous Approach (ICD-10-PCS; 2020-07-06)
DX: K22.2 Esophageal obstruction (principal); N17.9 Acute kidney failure, unspecified; R65.10 Systemic inflammatory response syndrome (SIRS) of non-infectious origin without acute organ dysfunction; E44.0 Moderate protein-calorie malnutrition; E87.2 Acidosis; I27.82 Chronic pulmonary embolism; K29.00 Acute gastritis without bleeding; E86.0 Dehydration; Z20.822 Contact with and (suspected) exposure to COVID-19; G40.909 Epilepsy, unspecified, not intractable, without status epilepticus; E87.6 Hypokalemia; D53.9 Nutritional anemia, unspecified; R13.10 Dysphagia, unspecified; E16.2 Hypoglycemia, unspecified; G62.9 Polyneuropathy, unspecified; D52.9 Folate deficiency anemia, unspecified; R47.81 Slurred speech; K59.09 Other constipation; G93.89 Other specified disorders of brain; Z79.01 Long term (current) use of anticoagulants; Z79.899 Other long term (current) drug therapy; Z85.841 Personal history of malignant neoplasm of brain; Z68.22 Body mass index [BMI] 22.0-22.9, adult
CPT/HCPCS: 36415; 36416; 36430; 70450; 70496; 70498; 70551; 71045; 74177; 80048; 80053; 80061; 81003; 81015; 82274; 82607; 82728; 82746; 83540; 83550; 83690; 83735; 84443; 84466; 84484; 85014; 85018; 85025; 85027; 85049; 86850; 86900; 86901; 87635; 88305; 93005; 93010; 95712; 95819; 95957; 96374; 96376; G0378; J2405; J2704; P9016; Q0162; Q9967; S0179; U0003; U0005

== ENCOUNTER → 2020-11-11 | Day surgery (SDC) | payer BC ==
[~2020-11-11] MED LIST changes: +Acetaminophen 500 MG TAB PO PRN; -Iopamidol-370 76% 500 ML 1 ML ONE; +diphenhydrAMINE 25 MG CAP PO PRN
[2020-11-11 16:08] VITALS: BP 105/70; TEMP 98.7
== END ==
LOC: ONC/OP 10:05
PROVIDERS: ATTEND Internal Medicine Hematology & Oncology
PROC: 30233N1 Transfusion of Nonautologous Red Blood Cells into Peripheral Vein, Percutaneous Approach (ICD-10-PCS; principal; 2020-11-11)
DX: D64.9 Anemia, unspecified (principal)
CPT/HCPCS: 36430; 86850; 86900; 86901; P9016

== ENCOUNTER 2020-12-30 13:43 | Outpatient (CLI) | payer BC ==
[~2020-12-30 13:43] MED LIST changes: -Acetaminophen 500 MG TAB PO PRN; +Magnevist 469MG/ML 20 ML VIAL ONE; -diphenhydrAMINE 25 MG CAP PO PRN
== END 2020-12-30 13:44 | disposition home or self-care (01) ==
LOC: TBSIIMAG 13:43
PROVIDERS: ATTEND Neurological Surgery
DX: C71.1 Malignant neoplasm of frontal lobe (principal)
CPT/HCPCS: 70553

== ENCOUNTER 2021-01-07 10:58 | Outpatient (CLI) | payer BC ==
[2021-01-07 12:30] LABS: Hemoglobin 9.7 g/dL (12.0-15.5); Mean Corpuscular HGB CONC 32.7 g/dL (32.0-36.0); Mean Corpuscular Hemoglobin 32.6 pg (27.0-33.0); Mean Corpuscular Volume 99.7 fl (81.6-98.3); Mean Platelet Volume 10.1 fl (7.4-10.4); Platelet Count 181 10x3/uL (150-450); RBC Distribution Width 15.9 % (11.5-14.5); Red Blood Cell (RBC) Count 2.98 10x6/uL (3.90-5.03); White Blood Cell (WBC) Count 4.5 10x3/uL (3.5-10.5)
[2021-01-07 12:49] LABS: Anion Gap 17 mmol/L (10-20); BUN (Urea Nitrogen) 35 mg/dL (9.8-20.1); Calc. Creatinine Clearance 0 mL/min (70-130); Calcium 9.1 mg/dL (7.8-10.44); Carbon Dioxide 21 mmol/L (22-29); Chloride 107 mmol/L (98-107); Glucose 132 mg/dL (70-105); INR-International Normal Ratio 0.9; PTT 22.2 sec (22.0-33.0); Potassium 3.4 mmol/L (3.5-5.1); Sodium 142 mmol/L (136-145)
[2021-01-07 22:56] LABS: SARS-CoV-2 PCR by NAA Not Detected (NotDetected)
== END 2021-01-07 10:59 | disposition home or self-care (01) ==
LOC: LABBT 10:58
PROVIDERS: ATTEND Neurological Surgery
DX: Z01.812 Encounter for preprocedural laboratory examination (principal); Z20.822 Contact with and (suspected) exposure to COVID-19
CPT/HCPCS: 80048; 85027; 85610; 85730; 93005; 93010; U0003; U0005

== ENCOUNTER 2021-01-07 11:00 | Inpatient (IN) | payer BC ==
[2021-01-10] MEDS ORDERED: ceFAZolin 2 GM/DEX 5% 100 ML BAG ONE ×2 (06:12→15:51)
[2021-01-10] MEDS ORDERED: Lidocaine 0.5%/Epinephrine 1:200,000 50 ml Vial ONE (06:19)
[2021-01-10] MEDS ORDERED: Thrombin 5000 UNITS/5 ML VIAL ONE (06:19)
[2021-01-10] MEDS ORDERED: Neomycin-Polymyxin 1 ML AMP ONE (06:19)
[2021-01-10] MEDS ORDERED: Bacitracin Zinc Ointment 30 gm TUBE ONE (06:20)
[2021-01-10] MEDS ORDERED: Mag-Al 1200 mg/1200 mg/30 ML UDCUP PO PRN (06:34)
[2021-01-10] MEDS ORDERED: HYDROcodone/Acetaminophen 10/325 mg Tablet PO PRN (06:34)
[2021-01-10] MEDS ORDERED: Ondansetron PF 4 MG/2 ML Vial IVP PRN (06:34)
[2021-01-10] MEDS ORDERED: Docusate 100 MG CAP PO PRN (06:34)
[2021-01-10] MEDS ORDERED: Midazolam HCl 2 mg/2 ml Vial ONE (06:49)
[2021-01-10] MEDS ORDERED: levETIRAcetam 500 MG/100 ML PREMIX BAG ONE (06:50)
[2021-01-10] MEDS ORDERED: levETIRAcetam in NS 100 ML ONE (06:50)
[2021-01-10] MEDS ORDERED: Propofol 1,000 MG/100 ML VIAL IV ONE (06:50)
[2021-01-10] MEDS ORDERED: Fentanyl 250 MCG/5 ML VIAL ONE (06:50)
[2021-01-10] MEDS ORDERED: PHENYLEPHRINE-NS 100 MCG/ML 10 ML SYRINGE ONE (07:42)
[2021-01-10] MEDS ORDERED: Dexamethasone 20 MG/5 ML VIAL ONE (07:42)
[2021-01-10] MEDS ORDERED: PROPOFOL 200 MG/20 ML VIAL ONE (07:42)
[2021-01-10] MEDS ORDERED: Lidocaine 1% PF 5 ML VIAL ONE (07:42)
[2021-01-10] MEDS ORDERED: Ondansetron PF 4 MG/2 ML Vial ONE ×2 (07:42→16:23)
[2021-01-10] MEDS ORDERED: Rocuronium Bromide 10 MG/ML (10ML VIAL) ONE (07:42)
[2021-01-10] MEDS ORDERED: SUGAMMADEX SODIUM 200 MG/2 ML VIAL ONE (10:13)
[2021-01-10] MEDS ORDERED: Promethazine HCl 25 MG/ML VIAL IVPB PRN (10:44)
[2021-01-10] MEDS ORDERED: Ondansetron HCl/PF 4 MG/2 ML Vial IVP PRN (10:44)
[2021-01-10] MEDS ORDERED: Promethazine HCl 25 MG/ML VIAL IM PRN (10:44)
[2021-01-10] MEDS ORDERED: diphenhydrAMINE 50 MG/ML VIAL ONE (11:25)
[2021-01-10] MEDS: Sodium Chloride 0.9% 1,000 ML IV SCH ×3 (13:12→20:47)
[2021-01-10] MEDS: levETIRAcetam 500 MG TAB PO SCH ×2 (13:12→20:35)
[2021-01-10] MEDS ORDERED: ceFAZolin Sodium/D5W 2 GM in Premix Bag 1 BAG IVPB SCH (14:00)
[2021-01-10] MEDS: ceFAZolin Sodium/D5W 2 GM in Premix Bag 1 BAG IVPB SCH (15:53)
[2021-01-10] MEDS ORDERED: HYDROcodone/Acetaminophen 10/325 mg Tablet ONE (16:16)
[2021-01-10] MEDS ORDERED: niCARdipine 25 MG in Sodium Chloride 0.9% 250 ML 240 ML IVPB SCH (20:30)
[2021-01-10] MEDS: diphenhydrAMINE 50 MG/ML VIAL IVP PRN (21:48)
[2021-01-10] MEDS: HYDROcodone/Acetaminophen 7.5/325 mg Tablet PO PRN (22:34)
[2021-01-11] MEDS: ceFAZolin Sodium/D5W 2 GM in Premix Bag 1 BAG IVPB SCH (01:07)
[2021-01-11] MEDS ORDERED: Lorazepam 2 MG/ML VIAL SLOW IVP SCH (01:15)
[2021-01-11 05:09] LABS: Hemoglobin 7.4 g/dL (12.0-16.0); Mean Corpuscular HGB CONC 34.4 g/dL (32.0-36.0); Mean Corpuscular Hemoglobin 34.5 pg (27.0-31.0); Mean Platelet Volume 7.1 fL (7.4-10.4); Platelet Count 142 thou/uL (130-400); RBC Distribution Width 14.5 % (11.5-14.5); Red Blood Cell (RBC) Count 2.15 mill/uL (4.20-5.40); White Blood Cell (WBC) Count 10.6 thou/uL (4.8-10.8)
[2021-01-11 05:31] LABS: Anion Gap 11 mmol/L (10-20); BUN (Urea Nitrogen) 28 mg/dL (9.8-20.1); Calc. Creatinine Clearance 17 mL/min (70-130); Calcium 8.4 mg/dL (7.8-10.44); Carbon Dioxide 20 mmol/L (22-29); Chloride 110 mmol/L (98-107); Glucose 100 mg/dL (70-105); Potassium 3.4 mmol/L (3.5-5.1); Sodium 138 mmol/L (136-145)
[2021-01-11 05:39] LABS: Band 7 % (5-11); Lymphocytes 8 % (21-51); MDiff Complete? YES; Monocytes 11 % (0-10); Neutrophil 74 % (42-75)
[2021-01-11] MEDS: diphenhydrAMINE 50 MG/ML VIAL IVP PRN (06:29)
[2021-01-11 07:12] VITALS: BMI 18.0
[2021-01-11] MEDS ORDERED: Loratadine 10 MG TAB PO PRN (09:00)
[2021-01-11] MEDS ORDERED: diphenhydrAMINE 12.5 MG/5 ML UDCUP PO PRN (09:01)
[2021-01-11] MEDS: levETIRAcetam 500 MG TAB PO SCH ×2 (09:13→20:30)
[2021-01-11] MEDS: Sodium Chloride 0.9% 1,000 ML IV SCH ×2 (10:12→22:08)
[2021-01-11] MEDS: hydrOXYzine 25 MG TAB PO PRN ×2 (12:43→22:08)
[2021-01-11] MEDS ORDERED: Potassium Chloride 20 MEQ TAB PO SCH (17:15)
[2021-01-11] MEDS ORDERED: Potassium Bicarbonate/Cit Ac 20 MEQ TAB PO SCH (17:30)
[2021-01-11] MEDS: HYDROcodone/Acetaminophen 7.5/325 mg Tablet PO PRN (17:35)
[2021-01-12] MEDS: HYDROcodone/Acetaminophen 7.5/325 mg Tablet PO PRN ×2 (05:46→12:28)
[2021-01-12 08:49] LABS: Anion Gap 11 mmol/L (10-20); BUN (Urea Nitrogen) 32 mg/dL (9.8-20.1); Calc. Creatinine Clearance 18 mL/min (70-130); Calcium 7.8 mg/dL (7.8-10.44); Carbon Dioxide 23 mmol/L (22-29); Chloride 111 mmol/L (98-107); Glucose 94 mg/dL (70-105); Potassium 3.6 mmol/L (3.5-5.1); Sodium 141 mmol/L (136-145)
[2021-01-12 08:51] LABS: Band 1 % (5-11); Hemoglobin 7.6 g/dL (12.0-16.0); Lymphocytes 22 % (21-51); MDiff Complete? YES; Mean Corpuscular HGB CONC 34.1 g/dL (32.0-36.0); Mean Corpuscular Hemoglobin 34.6 pg (27.0-31.0); Mean Platelet Volume 7.2 fL (7.4-10.4); Monocytes 4 % (0-10); Neutrophil 73 % (42-75); Platelet Count 169 thou/uL (130-400); RBC Distribution Width 14.8 % (11.5-14.5); Red Blood Cell (RBC) Count 2.21 mill/uL (4.20-5.40); White Blood Cell (WBC) Count 6.8 thou/uL (4.8-10.8)
[2021-01-12] MEDS: levETIRAcetam 500 MG TAB PO SCH ×2 (09:37→19:54)
[2021-01-12] MEDS: Sodium Chloride 0.9% 1,000 ML IV SCH (12:19)
[2021-01-12] MEDS: hydrOXYzine 25 MG TAB PO PRN (19:54)
[2021-01-13] MEDS: Acetaminophen 325 MG TAB PO PRN ×2 (03:26→21:28)
[2021-01-13] MEDS: hydrOXYzine 25 MG TAB PO PRN ×2 (03:30→16:38)
[2021-01-13 04:53] LABS: Hemoglobin 7.1 g/dL (12.0-16.0); Mean Corpuscular HGB CONC 34.2 g/dL (32.0-36.0); Mean Corpuscular Hemoglobin 34.6 pg (27.0-31.0); Mean Platelet Volume 7.5 fL (7.4-10.4); Platelet Count 173 thou/uL (130-400); RBC Distribution Width 14.7 % (11.5-14.5); Red Blood Cell (RBC) Count 2.04 mill/uL (4.20-5.40); White Blood Cell (WBC) Count 5.8 thou/uL (4.8-10.8)
[2021-01-13 05:06] LABS: Anion Gap 12 mmol/L (10-20); BUN (Urea Nitrogen) 28 mg/dL (9.8-20.1); Calc. Creatinine Clearance 18 mL/min (70-130); Carbon Dioxide 22 mmol/L (22-29); Chloride 109 mmol/L (98-107); Glucose 94 mg/dL (70-105); Potassium 3.9 mmol/L (3.5-5.1); Sodium 139 mmol/L (136-145)
[2021-01-13 05:52] LABS: Band 1 % (5-11); Eosinophils 2 % (0-10); Lymphocytes 19 % (21-51); MDiff Complete? YES; Monocytes 12 % (0-10); Neutrophil 66 % (42-75)
[2021-01-13] MEDS: Sodium Chloride 0.9% 1,000 ML IV SCH (09:49)
[2021-01-13] MEDS: levETIRAcetam 500 MG TAB PO SCH ×2 (09:50→21:27)
[2021-01-13] MEDS: HYDROcodone/Acetaminophen 7.5/325 mg Tablet PO PRN (09:51)
[2021-01-13] MEDS ORDERED: EPOETIN ALFA-EPBX (ESRD) 10,000 UNIT/ML VIAL SC SCH (11:15)
[2021-01-14 03:45] LABS: Anion Gap 10 mmol/L (10-20); BUN (Urea Nitrogen) 29 mg/dL (9.8-20.1); Calc. Creatinine Clearance 18 mL/min (70-130); Calcium 7.8 mg/dL (7.8-10.44); Carbon Dioxide 25 mmol/L (22-29); Chloride 109 mmol/L (98-107); Glucose 101 mg/dL (70-105); Potassium 3.8 mmol/L (3.5-5.1); Sodium 140 mmol/L (136-145)
[2021-01-14 03:48] LABS: Iron 29 ug/dL (50-170); Iron Binding Capacity, Total 91 mcg/dL (265-497)
[2021-01-14 04:14] LABS: Band 10 % (5-11); Eosinophils 1 % (0-10); Hemoglobin 7.1 g/dL (12.0-16.0); Lymphocytes 11 % (21-51); MDiff Complete? YES; Mean Corpuscular HGB CONC 34.5 g/dL (32.0-36.0); Mean Platelet Volume 7.4 fL (7.4-10.4); Monocytes 6 % (0-10); Neutrophil 72 % (42-75); Platelet Count 187 thou/uL (130-400); RBC Distribution Width 14.5 % (11.5-14.5); Red Blood Cell (RBC) Count 2.02 mill/uL (4.20-5.40); White Blood Cell (WBC) Count 5.5 thou/uL (4.8-10.8)
[2021-01-14] MEDS: levETIRAcetam 500 MG TAB PO SCH (08:33)
[2021-01-14] MEDS: Acetaminophen 325 MG TAB PO PRN ×2 (08:39→16:44)
[2021-01-14] MEDS: hydrOXYzine 25 MG TAB PO PRN ×2 (08:40→16:44)
[2021-01-14 15:20] VITALS: BP 101/69; TEMP 99.4
[2021-01-14 16:34] LABS: Creatinine, Urine 36.42 mg/dL (47-110)
== END 2021-01-14 17:00 | disposition home or self-care (01) | DRG 26 ==
LOC: SURG A 01-10 05:38 → CCU 01-10 16:38 → SURG B 01-12 14:09
PROVIDERS: ADMIT Neurological Surgery; ATTEND Neurological Surgery
PROC: 00B00ZZ Excision of Brain, Open Approach (ICD-10-PCS; principal; 2021-01-10)
DX: C71.1 Malignant neoplasm of frontal lobe (principal); N17.9 Acute kidney failure, unspecified; N18.4 Chronic kidney disease, stage 4 (severe); G40.209 Localization-related (focal) (partial) symptomatic epilepsy and epileptic syndromes with complex partial seizures, not intractable, without status epilepticus; D63.1 Anemia in chronic kidney disease; I12.9 Hypertensive chronic kidney disease with stage 1 through stage 4 chronic kidney disease, or unspecified chronic kidney disease; R80.9 Proteinuria, unspecified; L29.9 Pruritus, unspecified; E87.6 Hypokalemia; E86.0 Dehydration; I95.9 Hypotension, unspecified; E78.00 Pure hypercholesterolemia, unspecified; Z79.899 Other long term (current) drug therapy; Z79.01 Long term (current) use of anticoagulants; Z87.891 Personal history of nicotine dependence; Z01.812 Encounter for preprocedural laboratory examination; Z20.822 Contact with and (suspected) exposure to COVID-19
CPT/HCPCS: 36415; 70450; 76770; 80048; 82570; 82728; 83540; 83550; 84156; 85025; 85027; 85610; 85730; 86850; 86900; 86901; 88307; 88323; 93005; J1100; J1200; J1953; J2001; J2060; J2250; J2405; J2704; J3010; J7050; Q5105; U0003; U0005

== ENCOUNTER 2021-01-24 13:19 | Inpatient (IN) | payer BC ==
[2021-01-24 13:56] LABS: #Lymphocytes 0.9 thou/uL (1.20-3.40); #Monocytes 0.6 thou/uL (0.11-0.59); #Neutrophils 9.8 thou/uL (1.40-6.50); %Basophils 0.1 % (0.0-1.0); %Eosinophils 0.2 % (0.0-10.0); %Monocytes 5.6 % (0.0-10.0); %Neutrophils 86.1 % (42.0-75.0); Hemoglobin 8.8 g/dL (12.0-16.0); Mean Corpuscular HGB CONC 34.3 g/dL (32.0-36.0); Mean Corpuscular Hemoglobin 34.8 pg (27.0-31.0); Mean Platelet Volume 6.6 fL (7.4-10.4); Platelet Count 242 thou/uL (130-400); RBC Distribution Width 14.9 % (11.5-14.5); Red Blood Cell (RBC) Count 2.52 mill/uL (4.20-5.40); White Blood Cell (WBC) Count 11.3 thou/uL (4.8-10.8)
[2021-01-24 14:19] LABS: ALT (SGPT) Less than 7 U/L (8-55); AST (SGOT) 22 U/L (5-34); Acetaminophen Less than 6.0 mcg/mL (10.0-30.0); Albumin 4.2 g/dL (3.5-5.0); Alcohol Less than 10 mg/dL (Less than 10); Alkaline Phosphatase 77 U/L (40-110); Anion Gap 18 mmol/L (10-20); BUN (Urea Nitrogen) 32 mg/dL (9.8-20.1); Bilirubin, Total 0.7 mg/dL (0.2-1.2); Calc. Creatinine Clearance 0 mL/min (70-130); Carbon Dioxide 24 mmol/L (22-29); Chloride 103 mmol/L (98-107); Globulin 2.8 g/dL (2.4-3.5); Glucose 94 mg/dL (70-105); Potassium 3.9 mmol/L (3.5-5.1); Salicylate Less than 8.0 mg/dL (15.0-30.0); Sodium 141 mmol/L (136-145)
[2021-01-24 14:38] LABS: Bacteria/HPF 2+ HPF (None Seen); Bilirubin Negative (Negative); Blood, Urine 2+ (Negative); Clarity Clear (Clear); Glucose, Urine (Dipstick) Normal (Negative); Ketone, Urine 10 mg/dL (Negative); Leukocyte 75 Leu/uL (Negative); Nitrite Negative (Negative); Protein, Urine (Dipstick) 50 mg/dL (Neg-Trace); RBC/HPF 0-3 HPF (0-3); Specific Gravity, Urine 1.016 (1.002-1.036); Squamous Epithelial 0-3 HPF (0-3); Urobilinogen Normal mg/dL (Less than 2); pH, Urine 5.5 (5.0-9.0)
[2021-01-24 14:50] LABS: PTT 28.7 sec (22.9-36.1); Prothrombin Time 13.3 sec (12.0-14.7)
[2021-01-24 15:18] LABS: Amphetamine Not Detected (NotDetected); Barbiturates Screen Not Detected (NotDetected); Benzodiazepine Screen Not Detected (NotDetected); Cocaine Metabolite Screen Not Detected (NotDetected); Methadone Not Detected (NotDetected); Methamphetamine Not Detected (NotDetected); Opiate Screen Detected (NotDetected); Oxycodone Screen Not Detected (NotDetected); Phencyclidine (PCP) Not Detected (NotDetected); THC/Cannabinoid Screen Not Detected (NotDetected); Tricyclic Screen Not Detected (NotDetected)
[2021-01-24] MEDS ORDERED: cefTRIAXone\\ROCEPHIN 1 GM VIAL ONE (16:18)
[2021-01-24] MEDS ORDERED: Lorazepam 2 MG/ML VIAL ONE (16:56)
[2021-01-24] MEDS ORDERED: Acetaminophen 325 MG TAB PO PRN (18:05)
[2021-01-24] MEDS ORDERED: Ondansetron PF 4 MG/2 ML Vial IVP PRN (18:05)
[2021-01-24] MEDS ORDERED: hydrALAZINE 20 MG/ML VIAL SLOW IVP PRN (18:16)
[2021-01-24] MEDS: Sodium Chloride 0.9% 1,000 ML IV SCH (20:25)
[2021-01-24] MEDS: levETIRAcetam 500 MG TAB PO SCH (20:25)
[2021-01-24 22:05] VITALS: BMI 16.8
[2021-01-24 23:43] LABS: Creatinine, Urine 41.34 mg/dL (47-110)
[2021-01-25] MEDS: Sodium Chloride 0.9% 1,000 ML IV SCH ×2 (04:22→20:44)
[2021-01-25 06:38] LABS: #Eosinphils 0.1 thou/uL (0.0-0.7); #Lymphocytes 1.1 thou/uL (1.20-3.40); #Monocytes 0.6 thou/uL (0.11-0.59); #Neutrophils 5.7 thou/uL (1.40-6.50); %Basophils 0.2 % (0.0-1.0); %Eosinophils 0.8 % (0.0-10.0); %Lymphocytes 14.6 % (21.0-51.0); %Neutrophils 76.3 % (42.0-75.0); Hemoglobin 7.3 g/dL (12.0-16.0); Mean Corpuscular HGB CONC 34.2 g/dL (32.0-36.0); Mean Corpuscular Hemoglobin 34.8 pg (27.0-31.0); Mean Platelet Volume 6.8 fL (7.4-10.4); Platelet Count 198 thou/uL (130-400); RBC Distribution Width 14.8 % (11.5-14.5); Red Blood Cell (RBC) Count 2.09 mill/uL (4.20-5.40); White Blood Cell (WBC) Count 7.5 thou/uL (4.8-10.8)
[2021-01-25 06:49] LABS: ALT (SGPT) Less than 7 U/L (8-55); AST (SGOT) 16 U/L (5-34); Albumin 3.3 g/dL (3.5-5.0); Alkaline Phosphatase 62 U/L (40-110); Anion Gap 14 mmol/L (10-20); BUN (Urea Nitrogen) 30 mg/dL (9.8-20.1); Bilirubin, Total 0.5 mg/dL (0.2-1.2); Calc. Creatinine Clearance 14 mL/min (70-130); Calcium 8.6 mg/dL (7.8-10.44); Carbon Dioxide 22 mmol/L (22-29); Cardiac Risk 6.7 (Less than 4.5); Chloride 111 mmol/L (98-107); Cholesterol 215 mg/dl (< 200 Desired); Glucose 80 mg/dL (70-105); HDL Cholesterol 32 mg/dL (>60 Neg Risk); LDL Cholesterol, Calculated 157 mg/dL; Magnesium 2.1 mg/dL (1.6-2.6); Phosphorus 3.6 mg/dL (2.3-4.7); Potassium 3.7 mmol/L (3.5-5.1); Protein, Total 5.3 g/dL (6.0-8.3); Sodium 143 mmol/L (136-145); Triglycerides 130 mg/dL (Less than 150)
[2021-01-25 07:07] LABS: Hemoglobin A1c 4.5 % (4.0-6.0)
[2021-01-25] MEDS: levETIRAcetam 500 MG TAB PO SCH ×2 (09:00→20:45)
[2021-01-25 15:22] LABS: SARS-CoV-2 PCR by NAA Not Detected (NotDetected)
[2021-01-25] MEDS: cefTRIAXone\\ROCEPHIN 1 GM in Sodium Chloride 0.9% 100 ML IVPB SCH (18:13)
[2021-01-25] MEDS: Acetaminophen 500 MG TAB PO SCH (20:44)
[2021-01-25 23:21] LABS: Hemoglobin 7.2 g/dL (12.0-16.0); Platelet Count 164 thou/uL (130-400)
[2021-01-26 05:35] LABS: #Eosinphils 0.1 thou/uL (0.0-0.7); #Lymphocytes 0.9 thou/uL (1.20-3.40); #Monocytes 0.5 thou/uL (0.11-0.59); #Neutrophils 4.3 thou/uL (1.40-6.50); %Basophils 0.6 % (0.0-1.0); %Eosinophils 1.4 % (0.0-10.0); %Lymphocytes 15.1 % (21.0-51.0); %Monocytes 9.3 % (0.0-10.0); %Neutrophils 73.8 % (42.0-75.0); Hemoglobin 7.2 g/dL (12.0-16.0); Mean Corpuscular HGB CONC 33.9 g/dL (32.0-36.0); Mean Corpuscular Hemoglobin 34.4 pg (27.0-31.0); Mean Platelet Volume 6.5 fL (7.4-10.4); Platelet Count 165 thou/uL (130-400); RBC Distribution Width 14.8 % (11.5-14.5); Red Blood Cell (RBC) Count 2.08 mill/uL (4.20-5.40); White Blood Cell (WBC) Count 5.9 thou/uL (4.8-10.8)
[2021-01-26 06:02] LABS: ALT (SGPT) Less than 7 U/L (8-55); AST (SGOT) 13 U/L (5-34); Albumin 3.1 g/dL (3.5-5.0); Alkaline Phosphatase 54 U/L (40-110); Anion Gap 12 mmol/L (10-20); BUN (Urea Nitrogen) 25 mg/dL (9.8-20.1); Bilirubin, Total 0.4 mg/dL (0.2-1.2); Calc. Creatinine Clearance 15 mL/min (70-130); Calcium 8.3 mg/dL (7.8-10.44); Carbon Dioxide 22 mmol/L (22-29); Chloride 113 mmol/L (98-107); Globulin 1.8 g/dL (2.4-3.5); Glucose 103 mg/dL (70-105); Magnesium 1.7 mg/dL (1.6-2.6); Phosphorus 2.6 mg/dL (2.3-4.7); Potassium 3.8 mmol/L (3.5-5.1); Protein, Total 4.9 g/dL (6.0-8.3); Sodium 143 mmol/L (136-145)
[2021-01-26] MEDS: Acetaminophen 500 MG TAB PO SCH ×3 (08:24→21:18)
[2021-01-26] MEDS: levETIRAcetam 500 MG TAB PO SCH ×2 (08:24→21:16)
[2021-01-26] MEDS ORDERED: diphenhydrAMINE 50 MG CAP PO SCH (12:15)
[2021-01-26] MEDS: Amlodipine 10 MG TAB PO SCH (12:32)
[2021-01-26] MEDS: cefTRIAXone\\ROCEPHIN 1 GM in Sodium Chloride 0.9% 100 ML IVPB SCH (17:18)
[2021-01-27 05:59] LABS: #Eosinphils 0.1 thou/uL (0.0-0.7); #Lymphocytes 0.9 thou/uL (1.20-3.40); #Monocytes 0.6 thou/uL (0.11-0.59); #Neutrophils 3.6 thou/uL (1.40-6.50); %Basophils 0.2 % (0.0-1.0); %Lymphocytes 17.6 % (21.0-51.0); %Monocytes 12.1 % (0.0-10.0); %Neutrophils 68.1 % (42.0-75.0); Hemoglobin 9.6 g/dL (12.0-16.0); Mean Corpuscular HGB CONC 33.2 g/dL (32.0-36.0); Mean Corpuscular Hemoglobin 32.8 pg (27.0-31.0); Mean Corpuscular Volume 98.8 fL (78.0-98.0); Mean Platelet Volume 6.7 fL (7.4-10.4); Platelet Count 166 thou/uL (130-400); RBC Distribution Width 15.5 % (11.5-14.5); Red Blood Cell (RBC) Count 2.91 mill/uL (4.20-5.40); White Blood Cell (WBC) Count 5.3 thou/uL (4.8-10.8)
[2021-01-27 06:16] LABS: ALT (SGPT) Less than 7 U/L (8-55); AST (SGOT) 16 U/L (5-34); Albumin 3.1 g/dL (3.5-5.0); Alkaline Phosphatase 52 U/L (40-110); Anion Gap 12 mmol/L (10-20); BUN (Urea Nitrogen) 24 mg/dL (9.8-20.1); Bilirubin, Total 0.5 mg/dL (0.2-1.2); Calc. Creatinine Clearance 15 mL/min (70-130); Calcium 8.6 mg/dL (7.8-10.44); Carbon Dioxide 21 mmol/L (22-29); Chloride 113 mmol/L (98-107); Globulin 1.8 g/dL (2.4-3.5); Glucose 95 mg/dL (70-105); Magnesium 1.7 mg/dL (1.6-2.6); Potassium 3.6 mmol/L (3.5-5.1); Protein, Total 4.9 g/dL (6.0-8.3); Sodium 142 mmol/L (136-145)
[2021-01-27] MEDS: Acetaminophen 500 MG TAB PO SCH ×3 (09:19→21:10)
[2021-01-27] MEDS: levETIRAcetam 500 MG TAB PO SCH ×2 (09:20→21:11)
[2021-01-27] MEDS: Amlodipine 10 MG TAB PO SCH (09:20)
[2021-01-27] MEDS: Polyethylene Glycol 3350 17 GM Packet PO SCH (09:21)
[2021-01-27] MEDS: cefTRIAXone\\ROCEPHIN 1 GM in Sodium Chloride 0.9% 100 ML IVPB SCH (16:45)
[2021-01-28 06:32] LABS: #Eosinphils 0.2 thou/uL (0.0-0.7); #Monocytes 0.6 thou/uL (0.11-0.59); #Neutrophils 3.4 thou/uL (1.40-6.50); %Basophils 0.2 % (0.0-1.0); %Eosinophils 2.9 % (0.0-10.0); %Lymphocytes 19.4 % (21.0-51.0); %Monocytes 11.9 % (0.0-10.0); %Neutrophils 65.6 % (42.0-75.0); Hemoglobin 9.3 g/dL (12.0-16.0); Mean Corpuscular HGB CONC 33.7 g/dL (32.0-36.0); Mean Platelet Volume 6.3 fL (7.4-10.4); Platelet Count 146 thou/uL (130-400); RBC Distribution Width 15.4 % (11.5-14.5); Red Blood Cell (RBC) Count 2.75 mill/uL (4.20-5.40); White Blood Cell (WBC) Count 5.2 thou/uL (4.8-10.8)
[2021-01-28 06:57] LABS: ALT (SGPT) 8 U/L (8-55); AST (SGOT) 16 U/L (5-34); Albumin 3.2 g/dL (3.5-5.0); Alkaline Phosphatase 56 U/L (40-110); Anion Gap 11 mmol/L (10-20); BUN (Urea Nitrogen) 25 mg/dL (9.8-20.1); Bilirubin, Total 0.3 mg/dL (0.2-1.2); Calc. Creatinine Clearance 15 mL/min (70-130); Calcium 8.4 mg/dL (7.8-10.44); Carbon Dioxide 24 mmol/L (22-29); Chloride 111 mmol/L (98-107); Globulin 1.9 g/dL (2.4-3.5); Glucose 102 mg/dL (70-105); Magnesium 1.8 mg/dL (1.6-2.6); Phosphorus 3.7 mg/dL (2.3-4.7); Protein, Total 5.1 g/dL (6.0-8.3); Sodium 142 mmol/L (136-145)
[2021-01-28] MEDS: Acetaminophen 500 MG TAB PO SCH ×3 (08:00→20:52)
[2021-01-28] MEDS: levETIRAcetam 500 MG TAB PO SCH ×2 (08:00→20:53)
[2021-01-28] MEDS: Amlodipine 10 MG TAB PO SCH (08:00)
[2021-01-28] MEDS: Polyethylene Glycol 3350 17 GM Packet PO SCH (08:01)
[2021-01-28] MEDS ORDERED: cefTRIAXone\\ROCEPHIN 1 GM in Sodium Chloride 0.9% 100 ML IVPB SCH (14:15)
[2021-01-28] MEDS ORDERED: Amoxicillin/Potassium Clav 250 MG TAB PO SCH ×2 (14:30→21:00)
[2021-01-28] MEDS: Amoxicillin/Potassium Clav 250 MG TAB PO SCH (20:56)
[2021-01-28] MEDS ORDERED: Nitrofurantoin Monohyd/M-Cryst 100 MG CAP PO SCH (21:00)
[2021-01-29 04:51] LABS: #Eosinphils 0.1 thou/uL (0.0-0.7); #Lymphocytes 0.9 thou/uL (1.20-3.40); #Monocytes 0.4 thou/uL (0.11-0.59); #Neutrophils 4.1 thou/uL (1.40-6.50); %Basophils 0.2 % (0.0-1.0); %Eosinophils 2.5 % (0.0-10.0); %Lymphocytes 15.7 % (21.0-51.0); %Monocytes 7.8 % (0.0-10.0); %Neutrophils 73.7 % (42.0-75.0); Hemoglobin 8.9 g/dL (12.0-16.0); Mean Corpuscular HGB CONC 33.1 g/dL (32.0-36.0); Mean Corpuscular Hemoglobin 33.3 pg (27.0-31.0); Mean Platelet Volume 6.5 fL (7.4-10.4); Platelet Count 149 thou/uL (130-400); RBC Distribution Width 15.3 % (11.5-14.5); Red Blood Cell (RBC) Count 2.68 mill/uL (4.20-5.40); White Blood Cell (WBC) Count 5.5 thou/uL (4.8-10.8)
[2021-01-29 05:52] LABS: ALT (SGPT) Less than 7 U/L (8-55); AST (SGOT) 10 U/L (5-34); Alkaline Phosphatase 54 U/L (40-110); Anion Gap 14 mmol/L (10-20); BUN (Urea Nitrogen) 30 mg/dL (9.8-20.1); Bilirubin, Total 0.2 mg/dL (0.2-1.2); Calc. Creatinine Clearance 16 mL/min (70-130); Calcium 8.3 mg/dL (7.8-10.44); Carbon Dioxide 23 mmol/L (22-29); Chloride 109 mmol/L (98-107); Globulin 2.2 g/dL (2.4-3.5); Glucose 94 mg/dL (70-105); Magnesium 1.5 mg/dL (1.6-2.6); Phosphorus 3.8 mg/dL (2.3-4.7); Potassium 3.7 mmol/L (3.5-5.1); Protein, Total 5.2 g/dL (6.0-8.3); Sodium 142 mmol/L (136-145)
[2021-01-29] MEDS: Amlodipine 10 MG TAB PO SCH (09:08)
[2021-01-29] MEDS: Acetaminophen 500 MG TAB PO SCH (09:08)
[2021-01-29] MEDS: Amoxicillin/Potassium Clav 250 MG TAB PO SCH (09:08)
[2021-01-29] MEDS: levETIRAcetam 500 MG TAB PO SCH (09:08)
[2021-01-29] MEDS: Polyethylene Glycol 3350 17 GM Packet PO SCH (09:09)
[2021-01-29 12:00] VITALS: BP 124/82; TEMP 97.6
== END 2021-01-29 15:30 | DRG 689 ==
LOC: ERS 13:19 → SUATTDRO 13:19 → NEURO 17:11 → OBSVTOIN 01-27 13:23
PROVIDERS: ADMIT Family Medicine; ATTEND Hospitalist
PROC: 30233N1 Transfusion of Nonautologous Red Blood Cells into Peripheral Vein, Percutaneous Approach (ICD-10-PCS; principal; 2021-01-26)
DX: N39.0 Urinary tract infection, site not specified (principal); G93.41 Metabolic encephalopathy; N17.9 Acute kidney failure, unspecified; N18.4 Chronic kidney disease, stage 4 (severe); I62.9 Nontraumatic intracranial hemorrhage, unspecified; E87.2 Acidosis; Z20.822 Contact with and (suspected) exposure to COVID-19; D53.9 Nutritional anemia, unspecified; I12.9 Hypertensive chronic kidney disease with stage 1 through stage 4 chronic kidney disease, or unspecified chronic kidney disease; G40.909 Epilepsy, unspecified, not intractable, without status epilepticus; K29.00 Acute gastritis without bleeding; F22 Delusional disorders; R01.1 Cardiac murmur, unspecified; Z86.711 Personal history of pulmonary embolism; Z79.899 Other long term (current) drug therapy; Z85.841 Personal history of malignant neoplasm of brain; Z79.01 Long term (current) use of anticoagulants
CPT/HCPCS: 36415; 36416; 36430; 70450; 71045; 76770; 80053; 80061; 80306; 80307; 81003; 81015; 82570; 83036; 83690; 83735; 84100; 84300; 84439; 84443; 84540; 85025; 85610; 85730; 86140; 86850; 86900; 86901; 87040; 87086; 93005; 93306; 96365; 96375; 96376; G0378; J0360; J0696; J0780; J2060; J3490; P9016; U0003; U0005

== ENCOUNTER 2021-04-17 13:18 | Outpatient (CLI) | payer BC | END 2021-04-17 13:19 | disposition home or self-care (01) | LOC: TBSIIMAG 13:18 | PROVIDERS: ATTEND Neurological Surgery | DX: D49.6 Neoplasm of unspecified behavior of brain (principal); Z98.890 Other specified postprocedural states | CPT/HCPCS: 70553 ==

== ENCOUNTER 2022-05-18 13:25 | Outpatient (CLI) | payer MEDICARE | END 2022-05-18 13:26 | disposition home or self-care (01) | LOC: TBSIIMAG 13:25 | PROVIDERS: ATTEND Neurological Surgery | DX: C71.9 Malignant neoplasm of brain, unspecified (principal); D32.0 Benign neoplasm of cerebral meninges; Z98.890 Other specified postprocedural states | CPT/HCPCS: 70553 ==

== ENCOUNTER 2022-11-05 13:13 | Outpatient (CLI) | payer MEDICARE | END 2022-11-05 13:14 | disposition home or self-care (01) | LOC: MRI 13:13 | PROVIDERS: ATTEND Neurological Surgery | DX: C71.9 Malignant neoplasm of brain, unspecified (principal); D32.0 Benign neoplasm of cerebral meninges; Z98.890 Other specified postprocedural states | CPT/HCPCS: 70553 ==